=== PATIENT | female | born 1960 | race Caucasian/White ===

== ENCOUNTER 2020-03-04 08:13 | Outpatient (REF) | payer OTHER, SELFPAY ==
--- NOTE | 2020-03-04 08:35 | XR_ITS ---
EXAMINATION: XR FOOT, LEFT CLINICAL INFORMATION: Heel pain. COMPARISON: None TECHNIQUE: AP, lateral, and oblique views of the left foot. FINDINGS: There is no acute fracture or dislocation. The tarsal bones are normally aligned. There is an incidental type II accessory navicular bone. Small plantar and moderate retrocalcaneal spurs are noted. The soft tissues are unremarkable. XR/XR foot LT 2V IMPRESSION: 1. Small plantar and moderate retrocalcaneal degenerative spurs. 2. Type II accessory navicular bone can be incidental, but can also be a source of chronic pain.
--- NOTE | 2020-03-04 08:35 | XR_ITS ---
EXAMINATION: XR FOOT, RIGHT CLINICAL INFORMATION: Right heel pain. COMPARISON: None TECHNIQUE: AP, lateral, and oblique views of the right foot. FINDINGS: There is no acute fracture or dislocation. The tarsal bones are normally aligned. There is an incidental type I accessory navicular bone. Small plantar and moderate retrocalcaneal spurs are noted. Mild soft tissue swelling is seen. XR/XR foot RT 2V IMPRESSION: 1. Small plantar and moderate retrocalcaneal degenerative spurs. 2. Type I accessory navicular bone can be incidental, but can also be a source of chronic pain.
[2020-03-04 08:57] LABS: MANUAL DIFF FLAG NO
[2020-03-04 09:07] LABS: Basophils Absolute Auto 0.1 X10*3/uL (0.0-0.2); Basophils Percent Auto 0.6 % (0-2); Eosinophils Absolute Auto 0.2 X10*3/uL (0.0-0.4); Eosinophils Percent Auto 2.3 % (0-4); Hemoglobin 14.1 g/dl (12.0-16.0); Imm Gran Abs Auto 0.03 X10*3/uL (0.00-0.03); Imm Gran Pct Auto 0.3 % (0.0-0.4); Lymphocytes Absolute Auto 3.1 X10*3/uL (1.2-4.9); Lymphocytes Percent Auto 33.3 % (20-40); Mean Corpuscular HGB Conc 32.8 g/dl (31.0-35.0); Mean Corpuscular Hemoglobin 29.6 pg (27.0-33.0); Mean Corpuscular Volume 90.1 fL (80-98); Mean Platelet Volume 10.3 fL (9.4-12.3); Monocytes Absolute Auto 0.6 X10*3/uL (0.1-1.2); Monocytes Percent Auto 6.8 % (2-11); Neutrophils Absolute Auto 5.3 X10*3/uL (2.0-8.3); Neutrophils Percent Auto 56.7 % (45-73); Platelet Count 276 X10*3/uL (160-400); Red Blood Count 4.77 X10*6/uL (4.20-5.50); Red Cell Distribution Width 12.9 % (11.0-16.0); White Blood Count 9.3 X10*3/uL (4.8-10.8)
[2020-03-04 09:31] LABS: Alanine Aminotransferase 26 U/L (0-31); Albumin Level 4.3 g/dL (3.5-5.0); Alkaline Phosphatase 102 U/L (39-117); Anion Gap 12 (12-20); Aspartate Amino Transferase 15 U/L (5-31); Bilirubin Total 0.9 mg/dL (0.0-1.0); Blood Urea Nitrogen 17 mg/dL (9-16); Calcium 9.2 mg/dL (8.4-10.2); Carbon Dioxide 31 mmol/L (22-29); Chloride 99 mmol/L (96-108); Cholesterol 192 mg/dL; Estimated Glomerular Filt Rate > 60; Glucose Fasting 139 mg/dL (60-99); HDL Cholesterol 38 mg/dL; LDL Cholesterol Calculated 117 mg/dl; Potassium 4.2 mmol/l (3.3-5.1); Sodium 138 mmol/L (135-145); Total Protein 7.1 g/dL (6.5-8.0); Triglycerides 186 mg/dL
== END 2020-03-04 08:14 | disposition home or self-care (01) ==
LOC: HO.LAB 08:13
PROVIDERS: Visit Provider Internal Medicine
DX: Z00.00 Encounter for general adult medical examination without abnormal findings (principal); M79.671 Pain in right foot; M79.672 Pain in left foot
CPT/HCPCS: 36415; 73620; 80053; 80061; 85025

== ENCOUNTER 2021-02-16 08:21 | Outpatient (REF) | payer OTHER, SELFPAY ==
--- NOTE | ~2021-02-16 | MM_ITS ---
EXAMINATION: MM SCREENING DIGITAL BREAST TOMOSYNTHESIS, BILATERAL CLINICAL INFORMATION: Screening. Asymptomatic. The lifetime risk of breast cancer based on the Tyrer-Cuzick Model is 8.0%. COMPARISON: Mammography: 12/30/2019 and studies dating back to 08/30/2009 TECHNIQUE: Digital breast tomosynthesis is performed in both the craniocaudal and mediolateral oblique views along with computer-aided detection (CAD). Synthesized 2D images are generated from the tomosynthesis. FINDINGS: The breasts are almost entirely fatty (ACR BI-RADS breast composition Category a). There is stable parenchymal pattern of the left breast. Within the inferior lateral aspect of the right breast approximately 8 cm from the nipple, there is an ill-defined density not definitely seen previously measuring approximately 7 mm in diameter. No associated spiculation or microcalcification is identified. Spot compression films are recommended. MM/MM tomosynthesis screening BI IMPRESSION: Right breast density inferolateral aspect for which further evaluation with spot compression view is recommended. ASSESSMENT: BI-RADS 0: Incomplete - Need Additional Imaging Evaluation RECOMMENDATION: 1. Additional views of the right breast. 2. Targeted ultrasound if warranted after review of the additional views. 3. Radiology department staff will contact the patient for additional imaging. This patient's information was entered into a reminder system with a target due date for their next mammogram.
== END 2021-02-16 08:22 | disposition home or self-care (01) ==
LOC: HO.MAMMO 08:21
PROVIDERS: Visit Provider Internal Medicine
DX: Z12.31 Encounter for screening mammogram for malignant neoplasm of breast (principal)
CPT/HCPCS: 77063; 77067

== ENCOUNTER 2021-02-22 07:51 | Outpatient (REF) | payer OTHER, SELFPAY ==
--- NOTE | ~2021-02-22 | MM_ITS ---
EXAMINATION: MM DIAGNOSTIC DIGITAL BREAST TOMOSYNTHESIS, RIGHT CLINICAL INFORMATION: Right breast density laterally. COMPARISON: Mammography: February 16, 2021 and studies dating back to February 03, 2014 TECHNIQUE: Digital breast tomosynthesis is performed. 2D images are generated from the tomosynthesis. The following views are obtained: 90 degree mediolateral view, mediolateral oblique spot compression view, and spot compression view and craniocaudal projection FINDINGS: There are scattered areas of fibroglandular density (ACR BI-RADS breast composition Category b). Additional views show no significant mass, architectural abnormality, or abnormal calcifications. Results are provided to the patient at time of visit by the technologist. MM/MM tomosynthesis added views R IMPRESSION: No specific mammographic evidence to suggest malignancy. No persistent right breast density. ASSESSMENT: BI-RADS 1: Negative RECOMMENDATION: Routine annual mammography screening due in 12 months. This patient's information was entered into a reminder system with a target due date for their next mammogram.
== END 2021-02-22 07:52 | disposition home or self-care (01) ==
LOC: HO.MAMMO 07:51
PROVIDERS: Visit Provider Internal Medicine
DX: R92.2 Inconclusive mammogram (principal)
CPT/HCPCS: 77061; 77065

== ENCOUNTER 2021-03-13 09:51 | Outpatient (REF) | payer OTHER, SELFPAY ==
[2021-03-13 10:14] LABS: MANUAL DIFF FLAG NO
[2021-03-13 10:21] LABS: Basophils Percent Auto 0.5 % (0-2); Eosinophils Absolute Auto 0.2 X10*3/uL (0.0-0.4); Eosinophils Percent Auto 2.4 % (0-4); Hematocrit 42.8 % (37.0-47.0); Hemoglobin 13.9 g/dl (12.0-16.0); Imm Gran Abs Auto 0.04 X10*3/uL (0.00-0.03); Imm Gran Pct Auto 0.5 % (0.0-0.4); Lymphocytes Percent Auto 35.8 % (20-40); Mean Corpuscular HGB Conc 32.5 g/dl (31.0-35.0); Mean Corpuscular Hemoglobin 29.6 pg (27.0-33.0); Mean Corpuscular Volume 91.1 fL (80.0-98.0); Mean Platelet Volume 10.4 fL (9.4-12.3); Monocytes Absolute Auto 0.5 X10*3/uL (0.1-1.2); Monocytes Percent Auto 6.3 % (2-11); Neutrophils Absolute Auto 4.6 x10*3/uL (2.0-8.3); Neutrophils Percent Auto 54.5 % (45-73); Platelet Count 294 X10*3/uL (160-400); Red Cell Distribution Width 12.8 % (11.0-16.0); White Blood Count 8.4 X10*3/uL (4.8-10.8)
[2021-03-13 10:28] LABS: Estimated Average Glucose 131 mg/dL; Hemoglobin A1c % 6.2 %
[2021-03-13 11:00] LABS: Alanine Aminotransferase 29 U/L (0-31); Albumin Level 4.3 g/dL (3.5-5.0); Alkaline Phosphatase 105 U/L (39-117); Anion Gap 12 (12-20); Aspartate Amino Transferase 15 U/L (5-31); Bilirubin Total 0.7 mg/dL (0.0-1.0); Blood Urea Nitrogen 12 mg/dL (9-16); Calcium 9.7 mg/dL (8.4-10.2); Carbon Dioxide 29 mmol/L (22-29); Chloride 101 mmol/L (96-108); Cholesterol 208 mg/dL; Estimated Glomerular Filt Rate > 60; Glucose Fasting 111 mg/dL (60-99); HDL Cholesterol 37 mg/dL; LDL Cholesterol Calculated 119 mg/dl; Sodium 138 mmol/L (135-145); Triglycerides 264 mg/dL
== END 2021-03-13 09:52 | disposition home or self-care (01) ==
LOC: HO.10HDL 09:51
PROVIDERS: Visit Provider Internal Medicine
DX: Z00.00 Encounter for general adult medical examination without abnormal findings (principal); R73.03 Prediabetes
CPT/HCPCS: 36415; 80053; 80061; 83036; 85025

== ENCOUNTER 2021-04-04 14:57 | Outpatient (REF) | payer OTHER, SELFPAY ==
--- NOTE | ~2021-04-04 | XR_ITS ---
EXAMINATION: XR HAND, LEFT CLINICAL INFORMATION: Left hand pain COMPARISON: None TECHNIQUE: Four views of the left hand. FINDINGS: Skin marker positioned dorsal to the metacarpals. There is soft tissue swelling on the dorsal aspect of the metacarpals. No radiopaque foreign body seen. No visible acute fracture or dislocation. Mild narrowing of some of the interphalangeal joint spaces. Mild first CMC arthritis. XR/XR hand LT min 3V IMPRESSION: Dorsal soft tissue swelling. No radiographic evidence of acute fracture or dislocation. No radiopaque foreign body is identified.
== END 2021-04-04 14:58 | disposition home or self-care (01) ==
LOC: HO.HOSX 14:57
PROVIDERS: PCP Internal Medicine; Visit Provider Orthopaedic Surgery
DX: M79.642 Pain in left hand (principal); I10 Essential (primary) hypertension; E78.00 Pure hypercholesterolemia, unspecified; L25.0 Unspecified contact dermatitis due to cosmetics; T50.995A Adverse effect of other drugs, medicaments and biological substances, initial encounter
CPT/HCPCS: 73130; 99202

== ENCOUNTER → 2021-07-12 15:08 | Outpatient (BNVA) | payer OTHER, SELFPAY | PROVIDERS: Visit Provider Orthopaedic Surgery | DX: M79.89 Other specified soft tissue disorders (principal) | CPT/HCPCS: 99212 ==

== ENCOUNTER 2021-08-03 06:00 | Day surgery (SDC) | payer OTHER, SELFPAY ==
[2021-08-03 06:19] VITALS: BMI 39.4
[2021-08-03 06:24] VITALS: BP 140/75; PULSE 80; RESP 16; TEMP 36.3; O2SAT 96
--- NOTE | 2021-08-03 06:43 | PC.NURSE ---
Addendum entered by Valeria Simons 08/03/21 08:04: Correction, Patient arrived to [facility] wearing 3 rings (one on right hand, two on left hand). Dr. Martinez at bedside with patient and explained the risks of wearing rings on the operative hand. Myles POLANCO from the ED came to [facility] and cut two rings off of left hand, patient tolerated well. Both rings put in labeled patient bag and put with her other belongings. Original Note: Patient arrived to [facility] wearing 2 rings. Per patient these rings are unable to be removed and per Dr. Martinez, okay to wear during surgery . Patient made aware of the risks of bringing metal into the OR. To proceed with procedure as scheduled. Surgical team made aware of jewelry.
--- NOTE | 2021-08-03 07:14 | HO.ANESPROP2 ---
HPI - Anesthesia Eval Consult details Narrative: 61 F for ?left dorsal hand mass excision HTN , Asthma ,Morbid Obesity . [facility] Active Problems Active Problems: All Active Problems (Updated 04/04/21 @ 16:16 by Dulce Martinez MD) Mass of soft tissue of left upper extremity (Acute) Past Medical History Medical History (Updated 04/04/21 @ 16:16 by Dulce Martinez MD) High blood pressure High cholesterol Functional capacity: independent ambulation Family History Family history of problems with anesthesia: No Surgical History History of Problems with Anesthesia: No Social History Social History (Updated 04/04/21 @ 15:12 by Latia Dawson [facility]) Patient Tobacco Use Status: Former Tobacco user Quit Date: 1989 Tobacco use type: Cigarette Years Smoked: 10 Current occupational status: employed 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 Meds Allergies Allergy/AdvReac Type Severity Reaction Status Date / Time Ivory soap Allergy Mild rash, Uncoded 08/03/21 06:13 itching Active Medications: Current Medications Lactated Ringer's (Lr) 1,000 mls @ 80 mls/hr IVCONT .[id number] [facility] Home Medications Medication Instructions Recorded Confirmed Last Taken Type hydrochlorothiazide 12.5 mg capsule 12.5 mg PO QAM 04/04/21 07/12/21 Unknown History irbesartan 150 mg tablet (Avapro) 150 mg PO DAILY 04/04/21 07/12/21 Unknown History simvastatin 5 mg tablet 5 mg PO DAILY 04/04/21 07/12/21 Unknown History Exam Exam Date and Time: August 03, 2021 0714 Height,Weight and Vital Signs: Height 5 ft 4 in Weight 104.326 kg Last Vital Signs Temp 97.4 F 08/03/21 06:24 Pulse 80 08/03/21 06:24 Resp 16 08/03/21 06:24 BP 140/75 H 08/03/21 06:24 Pulse Ox 96 08/03/21 06:24 Airway Mallampati Class: III TM Dist: >3cm Neck ROM: Full Loose/Missing/Broken Teeth: Yes (Chipped ) Heart: S1, S2 Lungs: b/l breath sounds Assessment and Plan Assessment Anesthesia Assessment: Anesthesia Plan Discussed and Chart Reviewed Final Anesthetic Review Family History of Problems with Anesthesia: No History of Problems with Anesthesia: No NPO: Yes ASA Class: III Final Preanesthetic Review: Meds/Allgs Chart Reviewed, Consent Obtained/Reviewed and Anes Risks/Benef Reviewed Patient Risk: Intermediate Procedure Risk: Intermediate Anesthetic Plan Anesthetic Plan: MAC: Disposition: Standard PACU
[2021-08-03] MEDS: Lactated Ringers 1,000 ML 80 ML IVCONT (07:23)
[2021-08-03 08:45] VITALS: BP 112/73; PULSE 90; RESP 16; TEMP 36.8; O2SAT 98
[2021-08-03] MEDS: Acetaminophen 325 MG TABLET 650 MG PO (08:56)
--- NOTE | 2021-08-03 09:01 | MHC.SHP ---
Pre-Procedural Eval Section A Date of Service: 08/03/21 The patient is an INPATIENT: No Changes since office visit: No Cold of Flu in the past 2 weeks, No New Medical Problems, No Changes in Medication and No Patient answered all questions The History & Physical has been completed within 30 days and I have reviewed it.: Yes Section B Chief Complaint: Left dorsal hand mass Allergies: Allergies Allergy/AdvReac Type Severity Reaction Status Date / Time Ivory soap Allergy Mild rash, Uncoded 08/03/21 06:13 itching Plan I have reviewed the history and physical and performed a pertinent physical examination on my patient. No changes have occurred unless specified.
[2021-08-03 09:02] VITALS: BP 120/66; PULSE 83; RESP 18; TEMP 36.6; O2SAT 96
--- NOTE | 2021-08-03 09:02 | W.PM.OPN ---
Operative Note Operative Note Date of Service: 08/03/21 Narrative: Operative Note Narrative: Preop diagnosis: left dorsal hand mass Postop diagnosis: Same Procedure: left dorsal hand mass excisional biopsy, and excision of associated osteophyte Surgeon: Dulce Martinez MD Anesthesia: mac plus local Findings: a yellow fatty soft tissue mass measuring approximately 1 cm in diameter was removed and sent for pathology. It was associated with a dorsal radial osteophyte off the 2nd metacarpal head. This osteophyte was also removed and included in the specimen. Implants: None Tourniquet time: 11 minutes EBL: 5.0 ml Specimen: left dorsal hand mass and associated osteophyte Drains: None Complications: None Disposition: Brought to the recovery room in stable condition Plan: Follow-up in 10-14 days for wound check, suture removal and to check pathology Indications: The patient is a 61 year old woman with mass over the dorsal radial aspect of the left hand near the 2nd metacarpal head . The risks and benefits of operative treatment, including but not limited to risk of damage to blood vessels, nerves, tendons, infection, recurrence, persistent pain or numbness, incomplete resolution of preoperative symptoms, or need for further surgery were discussed with the patient and they wished to proceed with surgery. Procedure: Once consent was obtained patient was brought back to the operating suite and placed in the operating table in a supine position. . Perioperative antibiotics and anesthesia was administered by the anesthesia team. A tourniquet was applied to the proximal forearm of the left upper extremity and the limb was prepped and draped in a standard surgical fashion. the area about the mass over the dorsal aspect of the 2nd metacarpal head was infiltrated with some 2% lidocaine with epinephrine. The limb was elevated exsanguinated with Esmarch bandage and the tourniquet inflated to 250 mm of mercury for a total tourniquet time of Eleven minutes. I made a 2 cm longitudinal incision centered over the mass which was position over the 2nd metacarpal neck and head. Incision was made through the skin to the subcutaneous tissues using a 15. Blade. I then carefully dissected down to the level of the mass. There is a 1 cm yellow fatty mass that was somewhat hard and distinct from the surrounding subcutaneous fat. This was carefully dissected from the surrounding tissues and removed from the patient to be sent for histopathology. There was an associated osteophyte off of dorsal radial aspect of the 2nd metacarpal head that had been associated with this mass. I used a small rongeur to remove this osteophyte and the osteophyte material was sent with the specimen. No other masses were appreciated. At this point the tourniquet was deflated and hemostasis obtained with a brief period of local pressure and bipolar electrocautery. The wound was copiously irrigated with normal saline. The skin edges were reapproximated with 5-0 nylon suture and a sterile dressing was applied. The patient appears to have tolerated the procedure well and with no complications. All digits were well vascularized conclusion of the case.
== END 2021-08-03 09:38 | disposition home or self-care (01) ==
PROVIDERS: PCP Internal Medicine; Visit Provider Orthopaedic Surgery
PROC: (CPT 11423; principal; 2021-08-03 07:30)
DX: M79.89 Other specified soft tissue disorders (principal); R22.32 Localized swelling, mass and lump, left upper limb; M25.742 Osteophyte, left hand; I10 Essential (primary) hypertension; E78.00 Pure hypercholesterolemia, unspecified; Z79.899 Other long term (current) drug therapy
CPT/HCPCS: 11423; 88304; 88305; 88311; J0690; J2250; J3010

== ENCOUNTER → 2021-08-16 15:11 | Outpatient (BNVA) | payer OTHER, SELFPAY | PROVIDERS: Visit Provider Orthopaedic Surgery | DX: D17.9 Benign lipomatous neoplasm, unspecified (principal); M79.89 Other specified soft tissue disorders | CPT/HCPCS: 99212 ==

== ENCOUNTER 2021-08-21 13:38 | Outpatient (REF) | payer OTHER, SELFPAY ==
[2021-08-21 14:19] LABS: Influenza A PCR NEGATIVE (Negative); Influenza B PCR NEGATIVE (Negative); Resp Syncy Virus RNA Qual PCR NEGATIVE (Negative); SARS COV2 PCR INHOUSE NEGATIVE (Negative)
== END 2021-08-21 13:39 | disposition home or self-care (01) ==
LOC: HO.LNP 13:38
PROVIDERS: Visit Provider Internal Medicine
DX: Z20.822 Contact with and (suspected) exposure to COVID-19 (principal); R05.9 Cough, unspecified
CPT/HCPCS: 0241U

== ENCOUNTER 2021-09-18 08:47 | Outpatient (REF) | payer OTHER, SELFPAY ==
[2021-09-20 12:59] LABS: BV Int Neg Control Negative (Negative); BV Int Pos Control Positive (Positive)
[2021-09-23 02:47] LABS: HPV mRNA E6/E7 rflx Not Detected (Not Detected)
== END 2021-09-18 08:48 | disposition home or self-care (01) ==
LOC: HO.LAB 08:47
PROVIDERS: PCP Internal Medicine; Visit Provider Advanced Practice Midwife
DX: Z01.419 Encounter for gynecological examination (general) (routine) without abnormal findings (principal); L29.2 Pruritus vulvae; L23.2 Allergic contact dermatitis due to cosmetics; R23.8 Other skin changes; Z11.51 Encounter for screening for human papillomavirus (HPV); I10 Essential (primary) hypertension; E78.00 Pure hypercholesterolemia, unspecified; Z87.891 Personal history of nicotine dependence
CPT/HCPCS: 87480; 87510; 87624; 87660; 88142

== ENCOUNTER 2021-10-09 09:27 | Outpatient (REF) | payer OTHER, SELFPAY | END 2021-10-09 09:28 | disposition home or self-care (01) | LOC: HO.LAB 09:27 | PROVIDERS: Visit Provider Advanced Practice Midwife | DX: L29.2 Pruritus vulvae (principal); R21 Rash and other nonspecific skin eruption | CPT/HCPCS: 56605; 88305 ==

== ENCOUNTER → 2021-10-23 10:58 | Outpatient (BNVA) | payer OTHER, SELFPAY | PROVIDERS: PCP Internal Medicine; Visit Provider Advanced Practice Midwife | DX: L28.0 Lichen simplex chronicus (principal) | CPT/HCPCS: 99212 ==

== ENCOUNTER 2022-02-22 08:19 | Outpatient (REF) | payer OTHER, SELFPAY ==
--- NOTE | ~2022-02-22 | MM_ITS ---
EXAMINATION: MM SCREENING DIGITAL BREAST TOMOSYNTHESIS, BILATERAL CLINICAL INFORMATION: Screening. Asymptomatic. COMPARISON: Mammography: February 22, 2021 and studies dating back to April 12, 2016 TECHNIQUE: Digital breast tomosynthesis is performed in both the craniocaudal and mediolateral oblique views along with computer-aided detection (CAD). Synthesized 2D images are generated from the tomosynthesis. FINDINGS: The breasts are almost entirely fatty (ACR BI-RADS breast composition Category a). There are no significant masses, abnormal calcifications, or other abnormalities. MM/MM tomosynthesis screening BI IMPRESSION: No significant changes from prior exam. ASSESSMENT: BI-RADS 1: Negative RECOMMENDATION: Routine annual mammography screening. This patient's information was entered into a reminder system with a target due date for their next mammogram.
== END 2022-02-22 08:20 | disposition home or self-care (01) ==
LOC: HO.MAMMO 08:19
PROVIDERS: Visit Provider Internal Medicine
DX: Z12.31 Encounter for screening mammogram for malignant neoplasm of breast (principal)
CPT/HCPCS: 77063; 77067

== ENCOUNTER 2022-03-19 08:35 | Outpatient (REF) | payer OTHER, SELFPAY ==
[2022-03-19 10:47] LABS: MANUAL DIFF FLAG NO
[2022-03-19 10:52] LABS: Basophils Percent Auto 0.5 % (0-2); Eosinophils Absolute Auto 0.2 X10*3/uL (0.0-0.4); Eosinophils Percent Auto 2.3 % (0-4); Hemoglobin 14.2 g/dl (12.0-16.0); Imm Gran Abs Auto 0.03 X10*3/uL (0.00-0.03); Imm Gran Pct Auto 0.4 % (0.0-0.4); Lymphocytes Percent Auto 35.6 % (20-40); Mean Corpuscular Hemoglobin 29.8 pg (27.0-33.0); Mean Corpuscular Volume 90.3 fL (80.0-98.0); Mean Platelet Volume 10.7 fL (9.4-12.3); Monocytes Absolute Auto 0.5 X10*3/uL (0.1-1.2); Monocytes Percent Auto 6.2 % (2-11); Neutrophils Absolute Auto 4.6 x10*3/uL (2.0-8.3); Platelet Count 289 X10*3/uL (160-400); Red Blood Count 4.76 X10*6/uL (4.20-5.50); Red Cell Distribution Width 12.4 % (11.0-16.0); White Blood Count 8.4 X10*3/uL (4.8-10.8)
[2022-03-19 11:26] LABS: Alanine Aminotransferase 27 U/L (0-31); Albumin Level 4.4 g/dL (3.5-5.0); Alkaline Phosphatase 99 U/L (39-117); Anion Gap 12 (12-20); Aspartate Amino Transferase 17 U/L (5-31); Bilirubin Total 1.2 mg/dL (0.0-1.0); Blood Urea Nitrogen 17 mg/dL (9-16); Calcium 9.5 mg/dL (8.4-10.2); Carbon Dioxide 31 mmol/L (22-29); Chloride 101 mmol/L (96-108); Cholesterol 182 mg/dL; Estimated Average Glucose 134 mg/dL; Estimated Glomerular Filt Rate > 60; Glucose Fasting 126 mg/dL (60-99); HDL Cholesterol 39 mg/dL; Hemoglobin A1c % 6.3 %; LDL Cholesterol Calculated 109 mg/dl; Potassium 3.8 mmol/L (3.3-5.1); Sodium 140 mmol/L (135-145); Triglycerides 173 mg/dL
[2022-03-19 12:09] LABS: Creatinine Urine 79.74 mg/dL; Microalbum/Creatinine Ratio Ur 7.5 ug/mg cr
== END 2022-03-19 08:36 | disposition home or self-care (01) ==
LOC: HO.10HDL 08:35
PROVIDERS: Visit Provider Internal Medicine
DX: Z00.00 Encounter for general adult medical examination without abnormal findings (principal); R73.03 Prediabetes
CPT/HCPCS: 36415; 80053; 80061; 82043; 83036; 85025

== ENCOUNTER 2022-06-25 12:20 | Outpatient (REF) | payer OTHER, SELFPAY ==
[2022-06-25 13:41] LABS: MANUAL DIFF FLAG NO
[2022-06-25 14:01] LABS: Basophils Percent Auto 0.5 % (0-2); Eosinophils Absolute Auto 0.2 X10*3/uL (0.0-0.4); Eosinophils Percent Auto 2.4 % (0-4); Hematocrit 41.5 % (37.0-47.0); Hemoglobin 13.8 g/dl (12.0-16.0); Imm Gran Abs Auto 0.04 X10*3/uL (0.00-0.03); Imm Gran Pct Auto 0.5 % (0.0-0.4); Lymphocytes Percent Auto 35.7 % (20-40); Mean Corpuscular HGB Conc 33.3 g/dl (31.0-35.0); Mean Corpuscular Hemoglobin 30.1 pg (27.0-33.0); Mean Corpuscular Volume 90.4 fL (80.0-98.0); Mean Platelet Volume 10.7 fL (9.4-12.3); Monocytes Absolute Auto 0.6 X10*3/uL (0.1-1.2); Monocytes Percent Auto 7.5 % (2-11); Neutrophils Absolute Auto 4.5 x10*3/uL (2.0-8.3); Neutrophils Percent Auto 53.4 % (45-73); Platelet Count 286 X10*3/uL (160-400); Red Blood Count 4.59 X10*6/uL (4.20-5.50); Red Cell Distribution Width 12.8 % (11.0-16.0); White Blood Count 8.5 X10*3/uL (4.8-10.8)
[2022-06-25 14:13] LABS: Amylase 38 U/L (28-100); Anion Gap 11 (12-20); Blood Urea Nitrogen 13 mg/dL (9-16); C Reactive Protein 0.76 mg/dL (< or = 0.50); Calcium 9.5 mg/dL (8.4-10.2); Carbon Dioxide 32 mmol/L (22-29); Chloride 99 mmol/L (96-108); Estimated Glomerular Filt Rate > 60; Glucose Random 103 mg/dL (60-115); Potassium 4.4 mmol/L (3.3-5.1); Sodium 138 mmol/L (135-145)
[2022-06-25 14:18] LABS: Estimated Average Glucose 140 mg/dL; Hemoglobin A1c % 6.5 %
== END 2022-06-25 12:21 | disposition home or self-care (01) ==
LOC: HO.10HDL 12:20
PROVIDERS: Visit Provider Internal Medicine
DX: R73.03 Prediabetes (principal)
CPT/HCPCS: 36415; 80048; 82150; 83036; 85025; 86140

== ENCOUNTER 2022-09-20 08:50 | Outpatient (REF) | payer OTHER, SELFPAY ==
[2022-09-25 22:08] LABS: HPV mRNA E6/E7 rflx Not Detected (Not Detected)
== END 2022-09-20 08:51 | disposition home or self-care (01) ==
LOC: HO.LNP 08:50
PROVIDERS: PCP Internal Medicine; Visit Provider Advanced Practice Midwife
DX: Z01.419 Encounter for gynecological examination (general) (routine) without abnormal findings (principal); Z11.51 Encounter for screening for human papillomavirus (HPV); N93.0 Postcoital and contact bleeding
CPT/HCPCS: 87624; 88142

== ENCOUNTER 2022-09-20 09:41 | Outpatient (REF) | payer OTHER, SELFPAY ==
[2022-09-21 11:11] LABS: BV Int Neg Control Negative (Negative); BV Int Pos Control Positive (Positive)
== END 2022-09-20 09:42 | disposition home or self-care (01) ==
LOC: HO.LAB 09:41
PROVIDERS: Visit Provider Advanced Practice Midwife
DX: N93.0 Postcoital and contact bleeding (principal)
CPT/HCPCS: 87480; 87510; 87660

== ENCOUNTER 2022-10-02 11:07 | Outpatient (REF) | payer OTHER, SELFPAY ==
--- NOTE | ~2022-10-02 | US_ITS ---
EXAMINATION: US PELVIS COMPLETE CLINICAL INFORMATION: Postcoital bleeding COMPARISON: Pelvic ultrasound 12/23/2008 TECHNIQUE: Transabdominal and transvaginal imaging was performed. FINDINGS: The uterus is of normal size and echogenicity measuring 8.6 x 3.5 x 5.0 cm. A regular homogeneous endometrium is identified measuring 0.4 cm. A 1 cm complex nabothian cyst in the cervix containing debris. Both ovaries are of normal size and echogenicity. The right measures 2.0 x 1.4 x 1.7 cm for a volume of 2.5 mL. The left measures 2.0 x 1.9 x 2.2 cm for a volume of 4.8 mL. There is a unilocular 2.4 x 3.4 x 2.7 cm left paraovarian simple cyst. There is no pelvic free fluid. US/US pelvic and transvaginal IMPRESSION: * A 3.4 cm unilocular left paraovarian simple cyst. Recommend annual follow-up pelvic ultrasound. * Endometrium is uniform measuring 4 mm.
== END 2022-10-02 11:08 | disposition home or self-care (01) ==
LOC: HO.US 11:07
PROVIDERS: PCP Internal Medicine; Visit Provider Advanced Practice Midwife
DX: N93.0 Postcoital and contact bleeding (principal)
CPT/HCPCS: 76830; 76856

== ENCOUNTER → 2022-10-24 10:28 | Outpatient (BNVA) | payer OTHER, SELFPAY | PROVIDERS: PCP Internal Medicine; Visit Provider Advanced Practice Midwife ==

== ENCOUNTER 2023-02-28 08:23 | Outpatient (REF) | payer OTHER, SELFPAY ==
--- NOTE | ~2023-02-28 | MM_ITS ---
EXAMINATION: MM SCREENING DIGITAL BREAST TOMOSYNTHESIS, BILATERAL CLINICAL INFORMATION: Screening. Asymptomatic. COMPARISON: Mammography: 02/22/2022, 02/22/2021, 02/16/2021, 08/15/2018, and dating back to 2012. TECHNIQUE: Digital breast tomosynthesis is performed in both the craniocaudal and mediolateral oblique views along with computer-aided detection (CAD). Synthesized 2D images are generated from the tomosynthesis. FINDINGS: The breasts are almost entirely fatty (ACR BI-RADS breast composition Category a). There are no suspicious masses, suspicious grouped calcifications, or areas of architectural distortion in either breast. The parenchymal pattern is stable from prior exams. MM/MM tomosynthesis screening BI IMPRESSION: No mammographic evidence of malignancy. ASSESSMENT: BI-RADS BI-RADS 1 - Negative RECOMMENDATION: Routine annual mammography screening. 1 year F/U This examination should not preclude the clinical evaluation of a suspicious palpable abnormality. This patient's information was entered into a reminder system with a target due date for their next mammogram.
== END 2023-02-28 08:24 | disposition home or self-care (01) ==
LOC: HO.MAMMO 08:23
PROVIDERS: PCP Internal Medicine; Visit Provider Internal Medicine
DX: Z12.31 Encounter for screening mammogram for malignant neoplasm of breast (principal)
CPT/HCPCS: 77063; 77067

== ENCOUNTER → 2023-02-28 08:30 | Outpatient (BNV) | payer OTHER, SELFPAY | PROVIDERS: PCP Internal Medicine; Visit Provider Radiology Diagnostic Radiology | DX: Z12.31 Encounter for screening mammogram for malignant neoplasm of breast (principal) | CPT/HCPCS: 77063; 77067 ==

== ENCOUNTER 2023-03-20 09:42 | Outpatient (REF) | payer OTHER, SELFPAY ==
[2023-03-20 10:20] LABS: MANUAL DIFF FLAG NO
[2023-03-20 10:48] LABS: Basophils Percent Auto 0.4 % (0-2); Eosinophils Absolute Auto 0.2 X10*3/uL (0.0-0.4); Eosinophils Percent Auto 2.4 % (0-4); Imm Gran Abs Auto 0.03 X10*3/uL (0.00-0.03); Imm Gran Pct Auto 0.3 % (0.0-0.4); Lymphocytes Absolute Auto 2.7 X10*3/uL (1.2-4.9); Lymphocytes Percent Auto 28.9 % (20-40); Mean Corpuscular HGB Conc 32.6 g/dl (31.0-35.0); Mean Corpuscular Hemoglobin 29.2 pg (27.0-33.0); Mean Corpuscular Volume 89.8 fL (80.0-98.0); Mean Platelet Volume 10.4 fL (9.4-12.3); Monocytes Absolute Auto 0.7 X10*3/uL (0.1-1.2); Monocytes Percent Auto 7.1 % (2-11); Neutrophils Absolute Auto 5.6 x10*3/uL (2.0-8.3); Neutrophils Percent Auto 60.9 % (45-73); Platelet Count 316 X10*3/uL (160-400); Red Blood Count 4.79 X10*6/uL (4.20-5.50); Red Cell Distribution Width 12.5 % (11.0-16.0); White Blood Count 9.2 X10*3/uL (4.8-10.8)
[2023-03-20 10:49] LABS: Estimated Average Glucose 140 mg/dL; Hemoglobin A1c % 6.5 % (<6.0)
[2023-03-20 11:17] LABS: Creatinine Urine 37.03 mg/dL; Microalbumin Urine < 5.0 mg/L
[2023-03-20 11:35] LABS: Alanine Aminotransferase 28 U/L (0-31); Albumin Level 4.3 g/dL (3.5-5.0); Alkaline Phosphatase 93 U/L (39-117); Anion Gap 14 (12-20); Aspartate Amino Transferase 18 U/L (5-31); Blood Urea Nitrogen 15 mg/dL (9-16); Calcium 9.7 mg/dL (8.4-10.2); Carbon Dioxide 30 mmol/L (22-29); Chloride 100 mmol/L (96-108); Cholesterol 183 mg/dL (<200); Estimated Glomerular Filt Rate > 60; Glucose Fasting 122 mg/dL (60-99); HDL Cholesterol 39 mg/dL (>40); LDL Cholesterol Calculated 107 mg/dL (<100); Sodium 140 mmol/L (135-145); Total Protein 7.4 g/dL (6.5-8.0); Triglycerides 188 mg/dL (<150)
[2023-03-20 11:37] LABS: Thyroid Stimulating Hormone 0.41 uIU/mL (0.32-4.0)
== END 2023-03-20 09:43 | disposition home or self-care (01) ==
LOC: HO.10HDL 09:42
PROVIDERS: Visit Provider Internal Medicine
DX: I10 Essential (primary) hypertension (principal); E11.9 Type 2 diabetes mellitus without complications; E78.00 Pure hypercholesterolemia, unspecified
CPT/HCPCS: 36415; 80053; 80061; 82043; 82570; 83036; 84443; 85025

== ENCOUNTER 2023-06-20 17:15 | Outpatient (REF) | payer OTHER, SELFPAY ==
[2023-06-20 17:24] LABS: MANUAL DIFF FLAG NO
[2023-06-20 17:39] LABS: Basophils Absolute Auto 0.1 X10*3/uL (0.0-0.2); Basophils Percent Auto 0.3 % (0-2); Eosinophils Absolute Auto 0.2 X10*3/uL (0.0-0.4); Eosinophils Percent Auto 1.3 % (0-4); Hemoglobin 15.4 g/dl (12.0-16.0); Imm Gran Abs Auto 0.08 X10*3/uL (0.00-0.03); Imm Gran Pct Auto 0.5 % (0.0-0.4); Lymphocytes Absolute Auto 4.4 X10*3/uL (1.2-4.9); Mean Corpuscular HGB Conc 32.8 g/dl (31.0-35.0); Mean Corpuscular Hemoglobin 28.9 pg (27.0-33.0); Mean Corpuscular Volume 88.3 fL (80.0-98.0); Mean Platelet Volume 9.6 fL (9.4-12.3); Monocytes Percent Auto 6.5 % (2-11); Neutrophils Absolute Auto 9.9 x10*3/uL (2.0-8.3); Neutrophils Percent Auto 63.4 % (45-73); Platelet Count 371 X10*3/uL (160-400); Red Blood Count 5.32 X10*6/uL (4.20-5.50); White Blood Count 15.6 X10*3/uL (4.8-10.8)
[2023-06-20 17:58] LABS: Alanine Aminotransferase 38 U/L (0-31); Albumin Level 4.7 g/dL (3.5-5.0); Alkaline Phosphatase 100 U/L (39-117); Anion Gap 13 (12-20); Aspartate Amino Transferase 22 U/L (5-31); Bilirubin Total 0.8 mg/dL (0.0-1.0); Blood Urea Nitrogen 13 mg/dL (9-16); C Reactive Protein 0.82 mg/dL (< or = 0.50); Carbon Dioxide 29 mmol/L (22-29); Chloride 96 mmol/L (96-108); Estimated Glomerular Filt Rate > 60; Glucose Random 104 mg/dL (60-115); Lipase 26 U/L (8-78); Potassium 3.7 mmol/L (3.3-5.1); Sodium 134 mmol/L (135-145)
== END 2023-06-20 17:16 | disposition home or self-care (01) ==
LOC: HO.LAB 17:15
PROVIDERS: PCP Internal Medicine; Visit Provider Internal Medicine
DX: R10.9 Unspecified abdominal pain (principal)
CPT/HCPCS: 36415; 80053; 83690; 85025; 86140

== ENCOUNTER 2023-06-21 09:48 | Outpatient (REF) | payer OTHER, SELFPAY ==
--- NOTE | ~2023-06-21 | US_ITS ---
EXAMINATION: US ABDOMEN COMPLETE CLINICAL INFORMATION: Abdominal pain.. COMPARISON: None available. TECHNIQUE: Real-time imaging of the abdominal viscera. FINDINGS: PANCREAS: Appears prominent an echogenic. No focal lesion seen. ABDOMINAL AORTA: The proximal, mid, and distal segments are normal in caliber. INFERIOR VENA CAVA: Visualized portions are normal. LIVER: The liver is enlarged in size measuring 17.2 cm.. The liver contour is normal. Parenchymal echogenicity is increased with area of focal fatty sparing in the right lobe. No focal hepatic lesion. There is no intrahepatic biliary duct dilatation seen. GALLBLADDER: Gallbladder wall thickness is 0.3 cm The gallbladder is physiologically distended without evidence of stones, sludge, polyps, wall thickening or pericholecystic fluid. COMMON BILE DUCT: Normal in caliber measuring 0.3 cm in diameter. RIGHT KIDNEY: Normal. No hydronephrosis. No renal calculi or focal parenchymal lesions. The kidney measures 11.1 cm in maximum dimension. LEFT KIDNEY: Normal. No hydronephrosis. No renal calculi or focal parenchymal lesions. The kidney measures 12.0 cm in maximum dimension. SPLEEN: Normal. The spleen measures 9.0 cm in maximum dimension. FREE FLUID: None. US/US abdomen complete IMPRESSION: 1. Diffuse hepatic steatosis with areas of focal fatty sparing in the right lobe. 2. The pancreas is prominent and echogenic. 3. Rest of the abdominal ultrasound is unremarkable.
== END 2023-06-21 09:49 | disposition home or self-care (01) ==
LOC: HO.US 09:48
PROVIDERS: PCP Internal Medicine; Visit Provider Internal Medicine
DX: R10.9 Unspecified abdominal pain (principal)
CPT/HCPCS: 76700

== ENCOUNTER 2023-06-24 12:43 | Outpatient (REF) | payer OTHER, SELFPAY ==
--- NOTE | ~2023-06-24 | CT_ITS ---
EXAMINATION: CT ABDOMEN AND PELVIS WITHOUT CONTRAST CLINICAL INFORMATION: Abdominal pain radiating to chest. COMPARISON: Abdominal ultrasound 06/21/2023 TECHNIQUE: Multidetector volumetric imaging was performed from the superior aspect of the liver through the pubic symphysis. Sagittal and coronal reformatted images were obtained on the technologist's workstation. Oral contrast was administered. This CT examination was performed using dose optimization techniques as appropriate, variously including the following: *Automated exposure control *Adjustment of mA and/or kV according to patient size (this includes techniques or standardized protocols for targeted exams where dose is matched to indication/reason for exam; i.e. extremities or head) *Use of iterative reconstruction technique DLP: 792 mGy-cm FINDINGS: LUNG BASES: The visualized lung bases are unremarkable. LIVER, GALLBLADDER, AND BILIARY TREE: The noncontrast liver is decreased in attenuation. No biliary ductal dilatation is present. The gallbladder is unremarkable with no evidence of radiopaque gallstones, gallbladder wall thickening, or obvious pericholecystic inflammatory changes. PANCREAS: Unremarkable. SPLEEN: Unremarkable. ADRENAL GLANDS: Unremarkable. KIDNEYS AND URETERS: The kidneys are symmetric in size. No hydronephrosis. No perinephric fluid collection. BLADDER: Unremarkable. GASTROINTESTINAL TRACT: Small and large bowel loops are of normal caliber. No small bowel obstruction. Appendix is within normal limits. ABDOMINAL WALL: No significant hernia is appreciated. LYMPH NODES: Mesenteric nodule measures 1.8 x 1.3 x 1.8 cm. VASCULAR: Normal caliber abdominal aorta. PELVIC VISCERA: 3.0 x 2.9 cm left adnexal hypodensity. OSSEOUS STRUCTURES: No destructive bone lesions. CT/CT abdomen pelvis wo IV con IMPRESSION: Hepatic steatosis. Mesenteric nodule measures 1.8 x 1.3 x 1.8 cm. Short interval follow-up imaging is advised to assess stability. 3.0 x 2.9 cm left adnexal hypodensity. This may be further characterized with pelvic ultrasound.
[2023-06-24] MEDS: Barium Sulfate Oral (Vanilla) 450 ML ORAL.SUSP 900 ML PO (14:55)
== END 2023-06-24 12:44 | disposition home or self-care (01) ==
LOC: HO.CT 12:43
PROVIDERS: PCP Internal Medicine; Visit Provider Internal Medicine
DX: R10.13 Epigastric pain (principal); R07.89 Other chest pain
CPT/HCPCS: 74176

== ENCOUNTER 2023-06-28 12:16 | Outpatient (REF) | payer OTHER, SELFPAY ==
--- NOTE | ~2023-06-28 | US_ITS ---
EXAMINATION: US PELVIS CLINICAL INFORMATION: Adnexal lesion. COMPARISON: CT abdomen pelvis 06/24/2023. Pelvic ultrasound 10/02/2022. TECHNIQUE: Ultrasound of the pelvis is performed using both transabdominal and transvaginal transducers along with Doppler. Transvaginal imaging is performed due to inadequate visualization transabdominally. FINDINGS: Uterus: The uterus is anteverted and measures 11.3 x 4.4 x 6.5 cm. There is a 2.3 cm anterior fundal fibroid. The double wall endometrial thickness is 2 mm. Adnexa: The right ovary measures 2.0 x 1.7 x 2.4 cm, volume 4 mL. The right ovary appears normal. The left ovary measures 2.3 x 1.6 x 2.0 cm, volume 4 mL. There is a 3.3 x 3.0 x 3.0 cm (average linear dimension 3.1 cm) adnexal cyst with no abnormal septations, mural nodularity, or internal vascularity. Previously this measured 2.4 x 3.4 x 2.7 cm (average linear diameter 2.8 cm) on pelvic ultrasound 10/02/2022. No pelvic free fluid. US/US pelvic and transvaginal IMPRESSION: Stable to slightly increased size of the simple appearing cyst in the left adnexum. This is consistent with a nonneoplastic cyst or benign cystic neoplasm. Gynecology consult recommended. If not resected, imaging follow-up with US or MR with IV contrast is advised for 2 years from initial study to confirm stability. Note: This recommendation does not apply to premenarchal patients and to those with increased risk (genetic, family history, elevated tumor markers or other high-risk factors) of ovarian cancer. Reference: Radiology. 2019 Nov; 293(2):359-371
== END 2023-06-28 12:17 | disposition home or self-care (01) ==
LOC: HO.US 12:16
PROVIDERS: PCP Internal Medicine; Visit Provider Internal Medicine
DX: R93.89 Abnormal findings on diagnostic imaging of other specified body structures (principal); N83.8 Other noninflammatory disorders of ovary, fallopian tube and broad ligament
CPT/HCPCS: 76830; 76856

== ENCOUNTER 2023-07-09 10:38 | Outpatient (AMB) | payer OTHER, SELFPAY ==
[2023-07-09 10:49] VITALS: BP 118/80; BMI 42.6
--- NOTE | 2023-07-09 10:49 | A.OFFVIS_ITS ---
Intake Vital Signs 07/09/23 10:49 Height 5 ft 4 in Weight 248 lb BMI 42.6 BP 118/80 Intake Visit Reasons: US follow up Allergies Ivory soap Allergy (Mild, Uncoded 07/09/23 10:49) rash, itching HPI HPI Comments History of Present Illness Details Patient is here for a follow up ultrasound ordered by her primary care due to acute abdominal pain which started in April in the epigastric region while on a cruise and another episode since that timeframe. History of colon cancer with her mom. She had a prior ultrasound last September that revealed a left ovarian cyst appeared simple. History of lichen sclerosus, uses the topical ointment once in awhile which helps with any external irritation. Last year she had some postcoital bleeding no episodes since November 2022. She has an appointment with GI tomorrow to evaluate her upper GI pain. REPLACED BY [facility] Medical History (Updated 07/09/23 @ 11:50 by Sarah Frazier CNM) Lichen sclerosus Asthma High blood pressure High cholesterol Surgical History H/O umbilical hernia repair H/O hand surgery Hx of tonsillectomy Family History Mother Colon cancer Maternal Aunt Colon cancer Family/Other History of breast cancer Social History Alcohol intake: current Alcohol intake frequency: a few times a month Comment: medicated with po tylenol Patient Tobacco Use Status: Former Tobacco user Quit Date: 1989 Tobacco use type: Cigarette Years Smoked: 10 Current occupational status: employed 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 Sexual orientation: Straight/Heterosexual Gender identity: Female Review of Systems Const All systems reviewed & are unremarkable except as noted in HPI and below Physical Exam Vital Signs: Last Vital Signs BP 118/80 07/09/23 10:49 BMI result Body Mass Index 42.6 Const General: cooperative, healthy appearing and no acute distress Orientation/consciousness: patient oriented x3 GI Inspection: Yes normal to inspection and Yes obesity Palpation (GI): Soft to palpation and Other GI palpation findings present (Nontender) Rectal Exam - Female: visual inspection normal General: Yes bladder normal to palpation External Female Exam: normal appearance of the urethra Speculum Exam - Vagina: normal appearance of the vagina, normal palpation, normal vaginal discharge and vagina atrophic Speculum Exam - Cervix: normal appearance of the cervix and normal palpation Bimanual exam- vagina & uterus: normal bimanual exam, normal palpation, uterine size normal, bladder normal to palpation, normal palpation, uterine shape normal and non-tender Bimanual Exam- Adnexa, other: normal adnexae Neuro General: patient oriented x3 Results Reviewed Results Reviewed: [address] [address] Ultrasound Report Signed Patient: Ayesha Means MR#: [id number] : 1960 Acct:[id number] Age/Sex: 62 / F ADM Date: 06/28/23 Loc: .US Attending Dr: Reid Husain MD Ordering Physician: Reid Husain MD Date of Service: 06/28/23 Procedure(s): US pelvic and transvaginal Accession Number(s): [id number] cc: Reid Husain MD~ EXAMINATION: US PELVIS CLINICAL INFORMATION: Adnexal lesion. COMPARISON: CT abdomen pelvis 06/24/2023. Pelvic ultrasound 10/02/2022. TECHNIQUE: Ultrasound of the pelvis is performed using both transabdominal and transvaginal transducers along with Doppler. Transvaginal imaging is performed due to inadequate visualization transabdominally. FINDINGS: Uterus: The uterus is anteverted and measures 11.3 x 4.4 x 6.5 cm. There is a 2.3 cm anterior fundal fibroid. The double wall endometrial thickness is 2 mm. Adnexa: The right ovary measures 2.0 x 1.7 x 2.4 cm, volume 4 mL. The right ovary appears normal. The left ovary measures 2.3 x 1.6 x 2.0 cm, volume 4 mL. There is a 3.3 x 3.0 x 3.0 cm (average linear dimension 3.1 cm) adnexal cyst with no abnormal septations, mural nodularity, or internal vascularity. Previously this measured 2.4 x 3.4 x 2.7 cm (average linear diameter 2.8 cm) on pelvic ultrasound 10/02/2022. No pelvic free fluid. US/US pelvic and transvaginal IMPRESSION: Stable to slightly increased size of the simple appearing cyst in the left adnexum. This is consistent with a nonneoplastic cyst or benign cystic neoplasm. Gynecology consult recommended. If not resected, imaging follow-up with US or MR with IV contrast is advised for 2 years from initial study to confirm stability. Note: This recommendation does not apply to premenarchal patients and to those with increased risk (genetic, family history, elevated tumor markers or other high-risk factors) of ovarian cancer. Reference: Radiology. 2019 Feb; 293(2):359-371 Dictated By: Darius Peck MD Signed By: <Electronically signed by Darius Peck MD in OV> 07/01/23 1030 DD/ 1252 TD/TT: Applied Psychology Professor: ANTHONY Assessment & Plan Assessment & Plan (1) Left ovarian cyst: Code(s): N83.202 - Unspecified ovarian cyst, left side (2) Lichen sclerosus: Code(s): L90.0 - Lichen sclerosus et atrophicus (3) Encounter to discuss test results: Code(s): Z71.2 - Person consulting for explanation of examination or test findings Plan Discussed: Ultrasound findings-benign ovarian cyst with slight increase in size, some cysts can change and become concerning for pre malignancy or malignancy, plan for a follow up on the left ovarian cyst. She agrees to book the follow up in September for her ovarian cyst monitoring. Advised to monitor any symptoms of left-sided pelvic pain and to notify the office for immediate evaluation if any occurs. Atrophic vaginal changes noted and discuss the use of Replens as needed for vaginal moisturizing. Report any vaginal bleeding. Lichen sclerosus, in the need to continue treatment, refills for medications to be prescribed at her annual in September. Her skin today is clear as she is managing her care well. Keep follow up with Dr. Gonzalez tomorrow. This note is constructed using voice recognition software. While every effort has been made to ensure accuracy, erosion control specialist errors may have been included. Coding Level of Care Code Est Pt Level 3 (80830) Diagnoses Left ovarian cyst N83.202 Lichen sclerosus L90.0 Encounter to discuss test results Z71.2
== END 2023-07-09 11:32 | disposition home or self-care (01) ==
LOC: HO.HWS 10:38
PROVIDERS: PCP Internal Medicine; Visit Provider Advanced Practice Midwife
DX: N83.202 Unspecified ovarian cyst, left side (principal); L90.0 Lichen sclerosus et atrophicus; Z71.2 Person consulting for explanation of examination or test findings
CPT/HCPCS: 99213

== ENCOUNTER → 2023-07-09 10:38 | Outpatient (BNVA) | payer OTHER, SELFPAY | PROVIDERS: PCP Internal Medicine; Visit Provider Advanced Practice Midwife | DX: N83.202 Unspecified ovarian cyst, left side (principal); L90.0 Lichen sclerosus et atrophicus; R10.9 Unspecified abdominal pain; Z71.2 Person consulting for explanation of examination or test findings | CPT/HCPCS: 99212 ==

== ENCOUNTER 2023-09-25 09:53 | Outpatient (AMB) | payer OTHER, SELFPAY ==
[2023-09-25 09:57] VITALS: BP 130/80; BMI 42.9
--- NOTE | 2023-09-25 09:57 | A.OFFVIS_ITS ---
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 She is doing well with no concerns: has gained weight, dealing w/left sided sciatica now, going to acupuncture fro treatments and has improved on the right side. History of left ovarian cyst followed from last September, she had a CT scan in the winter due to upper GI pain and a subsequent repeat ultrasound June 2023 that showed a slight increase in the overall dimensions. She does not have any left- sided pelvic pain or other water purification chemist concerns. Attempting to eat a healthy, taking a daily vitamin, and magnesium supplements. Currently not sexually active w/. Denies any vaginal dryness or irritation. History of left-sided ovarian cyst appears benign monitored since last September, has no pain on her left side. Last pap smear; 2022. Last mammogram; 2022. Colonoscopy is UTD. Denies any family history of breast, ovarian or colon cancer. 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 Sexual orientation: Straight/Heterosexual Gender identity: Female Female Reproductive History Menstrual Age of Menarche: 13 control method: none Total pregnancies: 3 Full term: 3 Number of Living Children: 3 Date of last pap smear: 09/24/22 (negative) History of abnormal pap smear: No Date of Mammogram: 02/28/23 Review of Systems Const All systems reviewed & are unremarkable except as noted in HPI and below Reports as per HPI Eyes Reports no additional complaints ENT Reports no additional complaints Card Reports no additional complaints Resp Reports no additional complaints GI Reports as per HPI and Reports no additional complaints Reports as per HPI Musc Reports no additional complaints Skin/Breast Reports as per HPI Neuro Reports no additional complaints Psych Reports no additional complaints Endo Reports no additional complaints Rey/Lymph Reports no additional complaints Aller/Immun Reports no additional complaints Physical Exam Vital Signs: Last Vital Signs BP 130/80 09/25/23 09:57 BMI result Body Mass Index 42.9 Const General: cooperative, healthy appearing, no acute distress, well developed and alert Orientation/consciousness: patient oriented x3 HEENT Head: Yes normal to inspection Eyes General: appearance normal, both eyes and all related structures Neck Neck: Yes normal visual inspection Thyroid: Thyroid normal Chest Chest palpation & inspection: normal inspection of the chest and other (no puckering, dimpling, peau de orange, retraction, discharge, masses) Breast/axilla inspection: normal inspection of the breasts Breast/axilla palpation: normal palpation of the breasts Resp Effort & Inspection: normal respiratory effort GI Inspection: Yes normal to inspection and Yes obesity Palpation (GI): Soft to palpation Rectal Exam - Female: deferred General: Yes bladder normal to palpation External Female Exam: normal external appearance and normal appearance of the urethra Speculum Exam - Vagina: normal appearance of the vagina, normal palpation and normal vaginal discharge Speculum Exam - Cervix: normal appearance of the cervix and normal palpation Bimanual exam- vagina & uterus: normal bimanual exam, normal palpation, uterine size normal, bladder normal to palpation, normal palpation and non-tender Bimanual Exam- Adnexa, other: no masses Skin General skin exam: no rashes or lesions noted Rashes: no rashes Neuro General: patient oriented x3 Cognition (Neuro): normal cognition Extrem General: Yes normal to inspection Psych Attitude: cooperative Thought process: Normal thought process present Assessment & Plan Assessment & Plan (1) Encounter for well woman exam with routine gynecological exam: Code(s): Z01.419 - Encounter for gynecological examination (general) (routine) without ab normal findings Category: Medical (2) Lichen sclerosus: Code(s): L90.0 - Lichen sclerosus et atrophicus Category: Medical (3) Ovarian cyst: Code(s): N83.209 - Unspecified ovarian cyst, unspecified side Qualifiers: Laterality: left Qualified Code(s): N83.202 - Unspecified ovarian cyst, left side Plan Discussed: Current recommendations for pap smears per ASCCP guidelines. Breast awareness, periodic self breast exams and yearly mammogram. Maintain a healthy lifestyle, well balanced diet including Calcium 1,200 mg and Vitamin D 600 IU daily, and routine exercise. Reviewed findings of ovarian cyst. Counseled regarding findings of: Postmenopausal ovarian cyst, which is often benign, and most resolve on their own overtime, her cyst has slightly increased in size. Some develop into premalignant or malignant tumors. Further monitoring and evaluation is recommended with US, possible CT, or MRI study-she is adamant that she would not do an MRI and would rather have surgery to remove her ovary before ever considering an MRI scan, she does not believe she would ever be able to tolerate the procedure. She recently was accompanying her for his MRI and does not want to go through what she witnessed with him. Plan follow up ultrasound and discuss in-person the plan of care. If persists, or is indicated (Ca-125, Carbohydrate Antigen 19-9, & Carcinoembryonic Antigen) labs will be ordered and referral to [facility] or general gynecology for MD care if indicated for possible surgical consult. Follow up in person for test results. Use of medicine for lichen sclerosus symptoms reviewed refills placed, if any increase in symptoms to reports the office sooner for evaluation. Referral for BRCA testing placed. All of her questions and concerns were addressed to the best of my ability and shared decision making. She is agreeable to the plan of care. Contact the office with any postmenopausal bleeding. Patient verbalizes understanding and agrees to the plan of care. She was given opportunity to ask questions and all questions were answered to the best of my ability. RTO in 1 year for annual water purification chemist exam. This note is constructed using voice recognition software. While every effort has been made to ensure accuracy, business law professor errors may have been included. Orders: Orders US pelvic and transvaginal Today N83.209 - Unspecified ovarian cyst, unspecified side Referrals Genetics Referral N83.209 - Unspecified ovarian cyst, unspecified side, Z80.0 - Family history of malignant neoplasm of digestive organs, Z80.3 - Family history of malignant neoplasm of breast Medications: New betamethasone dipropionate 0.05% apply 2-3x week 1 appl topical BID 30 days 45 grams 1RF Coding Level of Care Code Est Pt Prev Care 40-64y(33303) Diagnoses Encounter for well woman exam with routine gynecological exam Z01.419 Lichen sclerosus L90.0 Cyst of left ovary N83.202 Laterality: left Comment
== END 2023-09-25 16:14 | disposition home or self-care (01) ==
PROVIDERS: PCP Internal Medicine; Visit Provider Advanced Practice Midwife
DX: Z01.419 Encounter for gynecological examination (general) (routine) without abnormal findings (principal); L90.0 Lichen sclerosus et atrophicus; N83.202 Unspecified ovarian cyst, left side
CPT/HCPCS: 99396

== ENCOUNTER → 2023-09-25 09:53 | Outpatient (BNVA) | payer OTHER, SELFPAY | PROVIDERS: PCP Internal Medicine; Visit Provider Advanced Practice Midwife | DX: Z01.419 Encounter for gynecological examination (general) (routine) without abnormal findings (principal); L90.0 Lichen sclerosus et atrophicus; N83.202 Unspecified ovarian cyst, left side | CPT/HCPCS: 99396 ==

== ENCOUNTER 2023-09-26 12:42 | Outpatient (REF) | payer OTHER, SELFPAY ==
--- NOTE | ~2023-09-26 | US_ITS ---
EXAMINATION: US PELVIS CLINICAL INFORMATION: Ovarian cyst COMPARISON: 06/28/2023 TECHNIQUE: Ultrasound of the pelvis is performed using both transabdominal and transvaginal transducers along with Doppler. Transvaginal imaging is performed due to inadequate visualization transabdominally. FINDINGS: Uterus: The uterus is retroverted and measures 9.8 x 4.4 x 5.7 cm. The double wall endometrial thickness is 0.43 mm. The uterus is smooth in contour and has normal myometrial echogenicity. There is left uterine fibroid in the body abating the endometrial stripe, measured 2.1 x 2.8 x 2.9 cm, growing since previous study and there is another small 1.2 x 1.0 x 1.0 cm and is new. Adnexa: Both ovaries are visualized. There is normal color flow to the adnexa. There is no ovarian torsion. There is no pelvic ascites or fluid collection. Right ovary measures 2.4 x 1.8 x 1.8 cm. The volume of right ovary measured 4.2 mL Left ovary measures 2.7 x 1.6 x 1.9 cm. The volume of left ovary measures 4.3 mL. There is 2.9 x 3.7 x 2.3 cm paraovarian cyst, diminished in size since previous study when it was measured 3.3 x 3.0 x 3.0 cm US/US pelvic and transvaginal IMPRESSION: 1. 2 uterine fibroids. 2. Decrease in size of left paraovarian cys
== END 2023-09-26 12:43 | disposition home or self-care (01) ==
LOC: HO.US 12:42
PROVIDERS: PCP Internal Medicine; Visit Provider Advanced Practice Midwife
DX: N83.209 Unspecified ovarian cyst, unspecified side (principal)
CPT/HCPCS: 76830; 76856

== ENCOUNTER 2023-09-30 09:52 | Outpatient (REF) | payer OTHER, SELFPAY ==
--- NOTE | ~2023-09-30 | US_ITS ---
EXAMINATION: US VENOUS ULTRASOUND WITH DOPPLER LOWER EXTREMITY, LEFT CLINICAL INFORMATION: Left knee edema COMPARISON: None available. TECHNIQUE: Ultrasound of the deep veins is performed from the hip to the calf with compression sonography and color and pulse Doppler assessment. Spectral analysis with color-flow imaging is performed. FINDINGS: There is normal venous compression and respiratory variation and augmented flow. The visualized common femoral vein, superficial femoral vein, profunda femoral vein, popliteal vein, and the trifurcation region shows no evidence of deep venous thrombosis. There is no significant popliteal fossa cyst. Fluid collection is seen anterior to the knee likely a joint effusion. If the patient's symptoms persist, followup ultrasound in 5 days 7 days might be of value to exclude proximal propagation from a non-visualized calf vein. US/US venous duplex LE LT IMPRESSION: No DVT demonstrated in the left lower extremity. Small knee joint effusion.
--- NOTE | ~2023-09-30 | XR_ITS ---
EXAMINATION: XR KNEE, LEFT CLINICAL INFORMATION: Left knee pain COMPARISON: None available. TECHNIQUE: Four views of the left knee. FINDINGS: Moderate to marked bicompartmental degenerative changes are seen with narrowing in the medial and patellofemoral compartments. A tiny joint effusion is present. Enthesopathy present at the insertion of the quadriceps tendon on the patella. No chondrocalcinosis, fractures or dislocations. XR/XR knee LT 4V IMPRESSION: Moderate to marked bicompartmental degenerative changes.
== END 2023-09-30 09:53 | disposition home or self-care (01) ==
LOC: HO.US 09:52
PROVIDERS: PCP Internal Medicine; Visit Provider Internal Medicine
DX: M25.562 Pain in left knee (principal); R60.0 Localized edema
CPT/HCPCS: 73564; 93971

== ENCOUNTER 2023-10-08 13:04 | Outpatient (AMB) | payer OTHER, SELFPAY ==
[2023-10-08 13:05] VITALS: BP 130/74; BMI 42.9
--- NOTE | 2023-10-08 13:05 | MHC.OFFVIS ---
Vital Signs 10/08/23 13:05 Height 5 ft 4 in Weight 250 lb BMI 42.9 BP 130/74 Blood Pressure Location Rt brachial Position Sitting Intake Visit Reasons: Ultra sound follow up Contact Lens Polisher: Contact Lens Polisher Present Allergies Ivory soap Allergy (Mild, Uncoded 10/08/23 13:08) rash, itching Is last menstrual period known: Yes HPI Comments Details: Patient is here today to discuss the ultrasound findings she has a history of a fibroid in impair ovarian cyst. Recent pelvic pain has resolved. She denies any postmenopausal bleeding episodes. 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 Sexual orientation: Straight/Heterosexual Gender identity: Female Female Reproductive History Menstrual Age of Menarche: 13 Review of Systems Const All systems reviewed & are unremarkable except as noted in HPI and below Endo Reports no additional complaints Physical Exam Vital Signs: Last Vital Signs BP 130/74 10/08/23 13:05 BMI result Body Mass Index 42.9 Const General: cooperative, healthy appearing and no acute distress Psych Appearance: well kempt Attitude: cooperative Thought process: Normal thought process present Results Reviewed Results Reviewed: [address] [address] Ultrasound Report Signed Patient: Ayesha Means MR#: [id number] : 1960 Acct:[id number] Age/Sex: 63 / F ADM Date: 09/26/23 Loc: HO. Attending Dr: Sarah Frazier CNM Ordering Physician: Sarah Frazier CNM Date of Service: 09/26/23 Procedure(s): US pelvic and transvaginal Accession Number(s): [id number] cc: Reid Husain MD; Sarah Frazier CNM~ EXAMINATION: US PELVIS CLINICAL INFORMATION: Ovarian cyst COMPARISON: 06/28/2023 TECHNIQUE: Ultrasound of the pelvis is performed using both transabdominal and transvaginal transducers along with Doppler. Transvaginal imaging is performed due to inadequate visualization transabdominally. FINDINGS: Uterus: The uterus is retroverted and measures 9.8 x 4.4 x 5.7 cm. The double wall endometrial thickness is 0.43 mm. The uterus is smooth in contour and has normal myometrial echogenicity. There is left uterine fibroid in the body abating the endometrial stripe, measured 2.1 x 2.8 x 2.9 cm, growing since previous study and there is another small 1.2 x 1.0 x 1.0 cm and is new. Adnexa: Both ovaries are visualized. There is normal color flow to the adnexa. There is no ovarian torsion. There is no pelvic ascites or fluid collection. Right ovary measures 2.4 x 1.8 x 1.8 cm. The volume of right ovary measured 4.2 mL Left ovary measures 2.7 x 1.6 x 1.9 cm. The volume of left ovary measures 4.3 mL. There is 2.9 x 3.7 x 2.3 cm paraovarian cyst, diminished in size since previous study when it was measured 3.3 x 3.0 x 3.0 cm US/US pelvic and transvaginal IMPRESSION: 1. 2 uterine fibroids. 2. Decrease in size of left paraovarian cys Dictated By: Rossy Dahl MD Signed By: <Electronically signed by Rossy Dahl MD in OV> 09/26/23 1602 DD/ 1319 TD/TT: Round Cutter Operator: Assessment & Plan Assessment & Plan (1) Encounter to discuss test results: Code(s): Z71.2 - Person consulting for explanation of examination or test findings (2) Fibroids: Code(s): D21.9 - Benign neoplasm of connective and other soft tissue, unspecified (3) Thickened endometrium: Code(s): R93.89 - Abnormal findings on diagnostic imaging of other specified body structures Plan Discussed: Ultrasound findings enlarging fibroid, and new onset fibroid. Counseled re: Leiomyoma: common pelvic neoplasm. Differential diagnosis-may include leiomyosarcoma which is a rare uterine sarcoma 3-7/100,000, difficult to distinguish from fibroids on ultrasound from uterine sarcoma's. Unlikely any single test will have a highly positive predictive value. Hysterectomy is not recommended for sole purpose of excluding malignant neoplasm. She does not feel she could ever tolerate a MRI procedure and would much prefer to have surgery instead to not have to deal with future concerns. Endometrial lining thickness, recommendations of EMB. Report any vaginal bleeding, pelvic pressure, bloating, or pain. Consult for surgical exploration verses expectant management offered. Patient prefers a surgical consult, she has not interested in having an endometrial biopsy either and would much prefer to not have to worry. All of her questions and concerns were addressed to the best of my ability and shared decision making. She is agreeable to the plan of care. Referral to MD for level of care/consult. Schedule annual for 1 year. This note is constructed using voice recognition software. While every effort has been made to ensure accuracy, air quality specialist errors may have been included. Orders: Referrals SUPERVISOR CELL MAINTENANCE Referral D21.9 - Benign neoplasm of connective and other soft tissue, unspecified, R93.89 - Abnormal findings on diagnostic imaging of other specified body structures Coding Level of Care Code Est Pt Level 3 (24476) Diagnoses Encounter to discuss test results Z71.2 Fibroids D21.9 Thickened endometrium R93.89
== END 2023-10-08 13:36 | disposition home or self-care (01) ==
PROVIDERS: PCP Internal Medicine; Visit Provider Advanced Practice Midwife
DX: Z71.2 Person consulting for explanation of examination or test findings (principal); D21.9 Benign neoplasm of connective and other soft tissue, unspecified; R93.89 Abnormal findings on diagnostic imaging of other specified body structures
CPT/HCPCS: 99213

== ENCOUNTER → 2023-10-08 13:04 | Outpatient (BNVA) | payer OTHER, SELFPAY | PROVIDERS: PCP Internal Medicine; Visit Provider Advanced Practice Midwife | DX: D21.9 Benign neoplasm of connective and other soft tissue, unspecified (principal); R93.89 Abnormal findings on diagnostic imaging of other specified body structures; Z71.2 Person consulting for explanation of examination or test findings | CPT/HCPCS: 99212 ==

== ENCOUNTER 2023-10-14 11:21 | Outpatient (REF) | payer OTHER, SELFPAY ==
--- NOTE | ~2023-10-14 | XR_ITS ---
EXAMINATION: XR KNEE, LEFT CLINICAL INFORMATION: Pain in left knee COMPARISON: None TECHNIQUE: AP standing view of both knees, lateral and sunrise views of the left knee were obtained. FINDINGS: No fracture. There is a small left joint effusion. There is moderate to marked degenerative changes seen in the medial and patellofemoral joint compartments of the left knee. There is moderate to marked narrowing of the right medial joint compartment. There are tricompartment marginal osteophytes on the left and medial lateral joint compartment osteophytes on the right. Quadriceps enthesopathy is noted on the left. XR/XR knee LT 3V IMPRESSION: 1. Moderate to marked osteoarthritis of the left knee. 2. Moderate to marked osteoarthritis of the right medial joint compartment.
== END 2023-10-14 11:22 | disposition home or self-care (01) ==
LOC: HO.HOSX 11:21
PROVIDERS: Visit Provider Physician Assistant
DX: M17.12 Unilateral primary osteoarthritis, left knee (principal)
CPT/HCPCS: 20610; 73562; 99212; J1010

== ENCOUNTER 2023-10-14 12:21 | Outpatient (AMB) | payer OTHER, SELFPAY ==
--- NOTE | 2023-10-14 12:53 | A.OFFVIS_ITS ---
Vital Signs 10/14/23 12:57 Height 5 ft 4 in Weight 250 lb BMI 42.9 Intake Visit Reasons: NewProb- Left knee pain Intake Note: Ayesha a 63 year old female who presents today for an evaluation of left knee pain. Patient reports her knee pain has been present for about a month, denies injury. Her pain is located at the anterior and posterior aspect of knee. States swelling in her foot as well as a tingling sensation. Her pain increases by the end of the day with being on her feet. Finds some relief with Advil. No previous tx. Allergies Ivory soap Allergy (Mild, Uncoded 10/08/23 13:08) rash, itching Medication List - Last Reconciled 10/14/23 by Lenin Nowak PA-C albuterol sulfate 90 mcg/actuation 0 mcg inhalation betamethasone dipropionate 0.05% 1 appl topical BID 30 days fluocinonide 0.05% 1 appl topical BID hydrochlorothiazide 12.5 mg PO QAM irbesartan (Avapro) 150 mg PO DAILY simvastatin 5 mg PO DAILY triamterene-hydrochlorothiazid 37.5-25 mg 1 cap PO BID zolpidem 5 mg PO BEDTIME PRN HPI HPI NewProb- Left knee pain: Details: 63-year-old female who presents to the office today for an evaluation of left knee pain for about a month. She states she has pain at the anterior aspect and posterior aspect of her knee that is aggravated at the end of the day with being on her feet. She also experiences swelling as well as tingling sensation in her knee. She finds mild relief with Advil. She has not had any treatment in the past. 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 Sexual orientation: Straight/Heterosexual Gender identity: Female Female Reproductive History Menstrual Age of Menarche: 13 Review of Systems Const All systems reviewed & are unremarkable except as noted in HPI and below Physical Exam Vital Signs: BMI result Body Mass Index 42.9 Const General: cooperative and no acute distress Orientation/consciousness: patient oriented x3 HEENT Head: Yes normal to inspection, Yes normocephalic and Yes atraumatic Eyes General: appearance normal, both eyes and all related structures Neck Neck: Yes normal visual inspection and Yes no lymphadenopathy Resp Effort & Inspection: normal respiratory effort and able to speak in complete sentences Cardio Rate: regular rate Peripheral pulses: Peripheral pulses 2+ throughout GI Inspection: Yes normal to inspection Palpation (GI): Soft to palpation Skin General skin exam: no rashes or lesions noted Neuro General: patient oriented x3 Extrem Other: Left knee: Skin intact, no erythema or joint effusion. Tenderness along the medial and lateral joint line. Full ROM with crepitus. Negative Scotty?s. No ligamentous laxity. NVI. ? Psych Appearance: grossly normal Mental Status: mental status grossly normal Office Procedures Joint Injection/Drain Joint Injection/Drain Primary Site: left knee Prep: site was prepped using aseptic technique, ethochloride spray was applied and injection warnings given Injected: 80 mg of, DepoMedrol, with 8 mL of, 1% plain lidocaine and in the subcromial space Approach Used: anterolateral Procedure: The patient tolerated the procedure well and there was some relief with the local anesthesia Coding 95232 - Glenohumeral/Tronchanteric Bursa/Intraarticular Procedure code (CPT) selection complete Assessment & Plan Assessment & Plan (1) Osteoarthritis of left knee: Code(s): M17.12 - Unilateral primary osteoarthritis, left knee Category: Medical Qualifiers: Osteoarthritis type: primary Qualified Code(s): M17.12 - Unilateral primary osteoarthritis, left knee Plan We discussed options today, which include steroid injection. The patient did consent to move forward with the left knee injection, which was tolerated well. I recommended rest, ice, and elevation and OTC anti-inflammatories as needed for discomfort. She was also given a course of physical therapy in the office today. If symptoms persist or worsen over the next 6-8 weeks, patient will contact the office, otherwise follow-up as needed. Orders: Orders XR knee standing BI Today Lenin Nowak PA-C M25.561 - Pain in right knee, M25.562 - Pain in left knee XR knee standing BI Today RAMÓN Grant M25.561 - Pain in right knee, M25.562 - Pain in left knee XR knee LT 3V Today RAMÓN Grant M25.562 - Pain in left knee Patient Instructions: Scribed for Lenin Nowak PA-C, by Mihir Scott medical insurance collector, on 10/14/2023 at 12:30 PM EST.? I, Lenin Nowak PA-C, have personally reviewed and agree with the information entered by the scribe. Coding Level of Care Code Est Pt Level 3 (34216) Diagnoses Primary osteoarthritis of left knee M17.12 Osteoarthritis type: primary CPT Codes Coding - Joint 7: 45547 - Glenohumeral/Tronchanteric Bursa/Intraarticular ([id number])
[2023-10-14 12:57] VITALS: BMI 42.9
== END 2023-10-14 13:29 | disposition home or self-care (01) ==
PROVIDERS: PCP Internal Medicine; Visit Provider Physician Assistant
DX: M17.12 Unilateral primary osteoarthritis, left knee (principal)
CPT/HCPCS: 20610; 99213

== ENCOUNTER 2023-10-22 13:38 | Outpatient (AMB) | payer OTHER, SELFPAY ==
[2023-10-22 13:39] VITALS: BP 130/80; BMI 42.9
--- NOTE | 2023-10-22 13:39 | A.OFFVIS_ITS ---
Vital Signs 10/22/23 13:39 Height 5 ft 4 in Weight 250 lb BMI 42.9 BP 130/80 Blood Pressure Location Lt brachial Position Sitting Intake Visit Reasons: Family history of malignant neoplasm of breast Intake Note: This patient presents for a breast consult, family history of malignant neoplasm of breast. Patient c/o; reports no change in size or shape, reports no discharge from nipples, reports no breast pain or tenderness. Telephone Coin Box Collector Required: No Accompanied by: Self / Same As Patient Allergies Ivory soap Allergy (Mild, Uncoded 10/08/23 13:08) rash, itching Medication List - Last Reconciled 10/22/23 by Madhav Iglesias MD albuterol sulfate 90 mcg/actuation 0 mcg inhalation betamethasone dipropionate 0.05% 1 appl topical BID 30 days celecoxib (Celebrex) 200 mg PO BID 30 days fluocinonide 0.05% 1 appl topical BID hydrochlorothiazide 12.5 mg PO QAM irbesartan (Avapro) 150 mg PO DAILY simvastatin 5 mg PO DAILY triamterene-hydrochlorothiazid 37.5-25 mg 1 cap PO BID zolpidem 5 mg PO BEDTIME PRN HPI Comments Details: 63-year-old female patient presenting for consideration of genetic testing due to a strong family history of cancer. She reports her mother was diagnosed with colon cancer in her 60s. A maternal aunt was also diagnosed with colon cancer also in her 60s. She has a maternal cousin who was diagnosed with breast cancer. She denies any ongoing breast symptoms and denies previous breast surgery. She is 3 para 3. Menarche was the age of 13. Her last menstrual period was at around 53. She denies a history of breast-feeding. Her past history is significant for hypertension, hyperlipidemia, and arthritis. She has had previous skin lesions excised and an umbilical hernia repaired. [facility] Medical History Fibroid Lichen sclerosus Asthma High blood pressure High cholesterol Surgical History H/O umbilical hernia repair H/O hand surgery Hx of tonsillectomy Family History Mother Colon cancer Maternal Aunt Colon cancer Family/Other History of breast cancer Family/Other History of breast cancer Social History Alcohol intake: current Alcohol intake frequency: a few times a month Comment: medicated with po tylenol Patient Tobacco Use Status: Former Tobacco user Tobacco use type: Cigarette Years Smoked: 10 Current occupational status: employed 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 Sexual orientation: Straight/Heterosexual Gender identity: Female Female Reproductive History Menstrual Age of Menarche: 13 Total pregnancies: 3 Full term: 3 Review of Systems Const All systems reviewed & are unremarkable except as noted in HPI and below Physical Exam Vital Signs: Last Vital Signs BP 130/80 10/22/23 13:39 BMI result Body Mass Index 42.9 Const General: cooperative and no acute distress Nutritional Appearance: well nourished Orientation/consciousness: patient oriented x3 Limitations: no limitations HEENT Head: Yes normocephalic and Yes atraumatic Ears: hearing grossly normal bilaterally Resp Effort & Inspection: normal respiratory effort, no audible wheezes, no cough and no respiratory distress Cardio Jugular venous distension: no JVD GI Inspection: Yes normal to inspection Skin Other: Warm, dry, no rash Neuro General: patient oriented x3 Extrem General: Yes no clubbing, cyanosis or edema Assessment & Plan Assessment & Plan (1) Family history of colon cancer: Code(s): Z80.0 - Family history of malignant neoplasm of digestive organs Category: Medical (2) Family history of breast cancer: Code(s): Z80.3 - Family history of malignant neoplasm of breast Category: Medical Plan 63-year-old female patient presenting for consideration of genetic testing. I reviewed the procedure, risks and benefits of the genetic testing. She wishes to proceed with the testing and will return in approximately 6 weeks to review the results and discuss treatment options. Coding Level of Care Code New Pt Level 4 (20283) Diagnoses Family history of colon cancer Z80.0 Family history of breast cancer Z80.3
== END 2023-10-22 14:14 | disposition home or self-care (01) ==
PROVIDERS: PCP Internal Medicine; Visit Provider Surgery
DX: Z80.0 Family history of malignant neoplasm of digestive organs (principal); Z80.3 Family history of malignant neoplasm of breast
CPT/HCPCS: 99203

== ENCOUNTER → 2023-10-22 13:38 | Outpatient (BNVA) | payer OTHER, SELFPAY | PROVIDERS: PCP Internal Medicine; Visit Provider Surgery | DX: Z80.0 Family history of malignant neoplasm of digestive organs (principal); Z80.3 Family history of malignant neoplasm of breast | CPT/HCPCS: 99202 ==

== ENCOUNTER 2023-11-01 08:24 | Outpatient (AMB) | payer OTHER, SELFPAY ==
[2023-11-01 08:30] VITALS: BP 124/80
--- NOTE | 2023-11-01 08:30 | A.OFFVIS_ITS ---
Vital Signs 11/01/23 08:30 BP 124/80 Intake Visit Reasons: Pelvic pain, hx ovarian cysts Intake Note: ongoing left sided pain Retail And Restaurant Associate: Retail And Restaurant Associate Present (Carol) Allergies Ivory soap Allergy (Mild, Uncoded 11/01/23 08:30) rash, itching HPI Comments Details: Patient is here today with an increase discomfort of pain in her left pelvic region. Onset 2 days ago pain was 4 to 5/10. She has a consult at [facility] December 10 2023 due to per ovarian cyst. She was not able to tolerate getting a MRI procedure and preferred to have a surgical consult. She denies any urinary symptoms and does not have any postmenopausal bleeding. History of a known fibroid. Taking ibuprofen for pain management. 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 Sexual orientation: Straight/Heterosexual Gender identity: Female Female Reproductive History Menstrual Age of Menarche: 13 Review of Systems Const All systems reviewed & are unremarkable except as noted in HPI and below Physical Exam Vital Signs: Last Vital Signs BP 124/80 11/01/23 08:30 Const General: cooperative, healthy appearing and no acute distress Orientation/consciousness: patient oriented x3 GI Inspection: Yes normal to inspection Palpation (GI): Soft to palpation and Other GI palpation findings present (Nontender) Rectal Exam - Female: visual inspection normal General: Yes bladder normal to palpation External Female Exam: normal appearance of the urethra Speculum Exam - Vagina: normal appearance of the vagina, normal palpation and normal vaginal discharge Speculum Exam - Cervix: normal appearance of the cervix and normal palpation Bimanual exam- vagina & uterus: normal bimanual exam, normal palpation, uterine size normal, bladder normal to palpation, normal palpation, uterine shape normal and non-tender Bimanual Exam- Adnexa, other: normal adnexae Neuro General: patient oriented x3 Assessment & Plan Assessment & Plan (1) Pelvic pain: Code(s): R10.2 - Pelvic and perineal pain (2) Para-ovarian cyst: Code(s): Q50.5 - Embryonic cyst of broad ligament Plan Plan stat pelvic ultrasound today. Reviewed warnings of when to seek emergency care. Keep follow up with [facility] for surgical consult. All of her questions and concerns were addressed to the best of my ability and shared decision making. She is agreeable to the plan of care. This note is constructed using voice recognition software. While every effort has been made to ensure accuracy, cloud infrastructure architect errors may have been included. Orders: Orders US pelvic and transvaginal Today N83.209 - Unspecified ovarian cyst, unspecified side, R10.2 - Pelvic and perineal pain Coding Level of Care Code Est Pt Level 3 (18168) Diagnoses Pelvic pain R10.2 Para-ovarian cyst Q50.5
== END 2023-11-01 09:24 | disposition home or self-care (01) ==
PROVIDERS: PCP Internal Medicine; Visit Provider Advanced Practice Midwife
DX: R10.2 Pelvic and perineal pain (principal); Q50.5 Embryonic cyst of broad ligament
CPT/HCPCS: 99213

== ENCOUNTER → 2023-11-01 08:24 | Outpatient (BNVA) | payer OTHER, SELFPAY | PROVIDERS: PCP Internal Medicine; Visit Provider Advanced Practice Midwife ==

== ENCOUNTER 2023-11-01 08:56 | Outpatient (REF) | payer OTHER, SELFPAY ==
--- NOTE | ~2023-11-01 | US_ITS ---
EXAMINATION: US PELVIS CLINICAL INFORMATION: Ovarian cyst. Postmenopausal. COMPARISON: 09/26/2023 TECHNIQUE: Ultrasound of the pelvis is performed using both transabdominal and transvaginal transducers along with Doppler. Transvaginal imaging is performed due to inadequate visualization transabdominally. FINDINGS: Uterus: The uterus is anteverted. The uterus measures 9.5 x 4.3 x 5.8 cm. Uterine echotexture is heterogeneous. Possible fibroid measures 3.0 x 2.1 x 2.9 cm. Previous measurements were 2.9 x 2.1 x 2.8 cm. The endometrial stripe is not well visualized. Hypoechoic focus in the lower uterine segment measures 1.2 x 1.0 x 1.3 cm. Cervical nabothian cysts are present. Few calcifications in the cervix. Adnexa: Right ovary measures 2.4 x 1.6 x 1.7 cm. Left ovary not visualized. No free fluid in pelvis. US/US pelvic and transvaginal IMPRESSION: Extremely limited study. Indeterminate hypoechoic focus in the lower uterine segment measuring 1.3 x 1.0 x 1.3 cm. Consider MRI pelvis for more complete characterization.
== END 2023-11-01 08:57 | disposition home or self-care (01) ==
LOC: HO.US 08:56
PROVIDERS: Visit Provider Advanced Practice Midwife
DX: R10.2 Pelvic and perineal pain (principal); N83.209 Unspecified ovarian cyst, unspecified side; Q50.5 Embryonic cyst of broad ligament
CPT/HCPCS: 76830; 76856; 99212

== ENCOUNTER 2023-12-12 11:04 | Outpatient (AMB) | payer OTHER, SELFPAY ==
--- NOTE | 2023-12-12 11:20 | A.OFFVIS_ITS ---
Intake Visit Reasons: OV-pain of the left knee F/U Intake Note: Ayesha a 63 year old female who presents today for a follow up of left knee pain, last injection 10/14/23. Patient reports injection provided her relief until about a month ago. Her pain presented after she went for a walk while on vacation. Denies any injury. Her pain is radiating down her leg to her foot. No relief with celebrex, elevation and icing. Allergies Ivory soap Allergy (Mild, Uncoded 12/12/23 15:10) rash, itching Medication List - Last Reconciled 12/12/23 by Lenin Nowak PA-C albuterol sulfate 90 mcg/actuation 0 mcg inhalation betamethasone dipropionate 0.05% 1 appl topical BID 30 days celecoxib (Celebrex) 200 mg PO BID 30 days fluocinonide 0.05% 1 appl topical BID hydrochlorothiazide 12.5 mg PO QAM irbesartan (Avapro) 150 mg PO DAILY simvastatin 5 mg PO DAILY triamterene-hydrochlorothiazid 37.5-25 mg 1 cap PO BID zolpidem 5 mg PO BEDTIME PRN HPI HPI OV-pain of the left knee F/U: Details: 63-year-old female who returns to the office today for a follow-up of left knee pain. She had her last injection on 10/14/23 which provided her relief until about a month ago when she went for a walk on vacation. She has not had any injury. She currently states she has pain in her knee that radiates down her leg to the foot. She finds no relief with Celebrex, elevation and icing. 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 Sexual orientation: Straight/Heterosexual Gender identity: Female Female Reproductive History Menstrual Age of Menarche: 13 Review of Systems Const All systems reviewed & are unremarkable except as noted in HPI and below Physical Exam Const General: cooperative and no acute distress Orientation/consciousness: patient oriented x3 HEENT Head: Yes normal to inspection, Yes normocephalic and Yes atraumatic Eyes General: appearance normal, both eyes and all related structures Neck Neck: Yes normal visual inspection and Yes no lymphadenopathy Resp Effort & Inspection: normal respiratory effort and able to speak in complete sentences Cardio Rate: regular rate Peripheral pulses: Peripheral pulses 2+ throughout GI Inspection: Yes normal to inspection Palpation (GI): Soft to palpation Skin General skin exam: no rashes or lesions noted Neuro General: patient oriented x3 Extrem Other: Left knee: Skin intact, no erythema or joint effusion. Tenderness along the medial and lateral joint line. Full ROM with crepitus. Negative Scotty?s. No ligamentous laxity. NVI. ? Psych Appearance: grossly normal Mental Status: mental status grossly normal Assessment & Plan Assessment & Plan (1) Osteoarthritis of left knee: Code(s): M17.12 - Unilateral primary osteoarthritis, left knee Category: Medical Qualifiers: Osteoarthritis type: primary Qualified Code(s): M17.12 - Unilateral primary osteoarthritis, left knee Plan Reassurance was given that she may have an acute flareup of arthritis and a degenerative meniscus tear. We will continue to treat this conservatively. She will continue with Celebrex. She would also like to take Advil with this. I did put in an order for gel injection on the left knee and once this is approved, I will see her back to proceed. She will contact if she has any questions or concerns going forward. Patient Instructions: Scribed for Lenin Nowak PA-C, by Mihir Scott certified medical biller, on 12/12/2023 at 11:15 AM EST.? I, Lenin Nowak PA-C, have personally reviewed and agree with the information entered by the scribe. Coding Level of Care Code Est Pt Level 3 (52270) Complex EM visit Add On G2211 Diagnoses Primary osteoarthritis of left knee M17.12 Osteoarthritis type: primary
== END 2023-12-12 12:11 | disposition home or self-care (01) ==
PROVIDERS: PCP Internal Medicine; Visit Provider Physician Assistant
DX: M17.12 Unilateral primary osteoarthritis, left knee (principal)
CPT/HCPCS: 99213; G2211

== ENCOUNTER → 2023-12-12 11:04 | Outpatient (BNVA) | payer OTHER, SELFPAY | PROVIDERS: PCP Internal Medicine; Visit Provider Physician Assistant | DX: M17.12 Unilateral primary osteoarthritis, left knee (principal) | CPT/HCPCS: 99212 ==

== ENCOUNTER 2024-01-06 09:48 | Outpatient (AMB) | payer OTHER, SELFPAY ==
--- NOTE | 2024-01-06 10:00 | MHC.OFFVIS ---
Vital Signs 01/06/24 10:07 Height 5 ft 4 in Weight 250 lb BMI 42.9 Intake Visit Reasons: ov- Euflexxa LT knee #1 Intake Note: Ayesha a 63 year old female who presents today for a left knee Euflexxa injection #1. Allergies Ivory soap Allergy (Mild, Uncoded 01/06/24 10:05) rash, itching Medication List - Last Reconciled 01/06/24 by Lenin Nowak PA-C albuterol sulfate 90 mcg/actuation 0 mcg inhalation betamethasone dipropionate 0.05% 1 appl topical BID 30 days celecoxib (Celebrex) 200 mg PO BID 30 days fluocinonide 0.05% 1 appl topical BID hydrochlorothiazide 12.5 mg PO QAM irbesartan (Avapro) 150 mg PO DAILY simvastatin 5 mg PO DAILY triamterene-hydrochlorothiazid 37.5-25 mg 1 cap PO BID zolpidem 5 mg PO BEDTIME PRN HPI HPI ov- Euflexxa LT knee #1: Details: 63-year-old female who returns to the office today for left knee Euflexxa gel injection #1. [facility] Medical History Fibroid Lichen sclerosus Asthma High blood pressure High cholesterol Surgical History H/O umbilical hernia repair H/O hand surgery Hx of tonsillectomy Family History Mother Colon cancer Maternal Aunt Colon cancer Family/Other History of breast cancer Family/Other History of breast cancer Social History Alcohol intake: current Alcohol intake frequency: a few times a month Comment: medicated with po tylenol Patient Tobacco Use Status: Former Tobacco user Tobacco use type: Cigarette Years Smoked: 10 Current occupational status: employed 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 Sexual orientation: Straight/Heterosexual Gender identity: Female Female Reproductive History Menstrual Age of Menarche: 13 Review of Systems Const All systems reviewed & are unremarkable except as noted in HPI and below Physical Exam Vital Signs: BMI result Body Mass Index 42.9 Const General: cooperative and no acute distress Orientation/consciousness: patient oriented x3 HEENT Head: Yes normal to inspection, Yes normocephalic and Yes atraumatic Eyes General: appearance normal, both eyes and all related structures Neck Neck: Yes normal visual inspection and Yes no lymphadenopathy Resp Effort & Inspection: normal respiratory effort and able to speak in complete sentences Cardio Rate: regular rate Peripheral pulses: Peripheral pulses 2+ throughout GI Inspection: Yes normal to inspection Palpation (GI): Soft to palpation Skin General skin exam: no rashes or lesions noted Neuro General: patient oriented x3 Extrem Other: Left knee: Skin intact, no erythema or joint effusion. Tenderness along the medial and lateral joint line. Full ROM with crepitus. Negative Scotty?s. No ligamentous laxity. NVI. ? Psych Appearance: grossly normal Mental Status: mental status grossly normal Office Procedures Joint Injection/Aspiration Joint Injection/Aspiration Details: euflexxa Primary Site: left knee Prep: site was prepped using aseptic technique, ethochloride spray was applied and injection warnings given Injected: in the joint Approach Used: anterolateral Procedure: The patient tolerated the procedure well Coding 78638 - Glenohumeral/Tronchanteric Bursa/Intraarticular Procedure code (CPT) selection complete Assessment & Plan Assessment & Plan (1) Osteoarthritis of left knee: Code(s): M17.12 - Unilateral primary osteoarthritis, left knee Category: Medical Qualifiers: Osteoarthritis type: primary Qualified Code(s): M17.12 - Unilateral primary osteoarthritis, left knee Plan We discussed options today, which include Euflexxa gel injection. The patient did consent to move forward with the left knee Euflexxa gel injection #1, which was tolerated well. I recommended rest, ice, and elevation and OTC anti-inflammatories as needed for discomfort. She will return next week. Patient Instructions: Scribed for Lenin Nowak PA-C, by Mihir Scott senior medical technologist, on 01/06/2024 at 10:00 AM EST.? I, Lenin Nowak PA-C, have personally reviewed and agree with the information entered by the scribe. Coding Level of Care Code Procedure Only Diagnoses Primary osteoarthritis of left knee M17.12 Osteoarthritis type: primary CPT Codes Coding - Joint 7: 54222 - Glenohumeral/Tronchanteric Bursa/Intraarticular ([id number])
[2024-01-06 10:07] VITALS: BMI 42.9
== END 2024-01-06 10:52 | disposition home or self-care (01) ==
PROVIDERS: PCP Internal Medicine; Visit Provider Physician Assistant
DX: M17.12 Unilateral primary osteoarthritis, left knee (principal)
CPT/HCPCS: 20610

== ENCOUNTER → 2024-01-06 09:48 | Outpatient (BNVA) | payer OTHER, SELFPAY | PROVIDERS: PCP Internal Medicine; Visit Provider Physician Assistant | DX: M17.12 Unilateral primary osteoarthritis, left knee (principal) | CPT/HCPCS: 20610; J7323 ==

== ENCOUNTER 2024-01-13 09:14 | Outpatient (AMB) | payer OTHER, SELFPAY ==
--- NOTE | 2024-01-13 09:18 | MHC.OFFVIS ---
Intake Visit Reasons: ov- Euflexxa LT knee #2 Intake Note: Ayesha a 63 year old female who presents today for a left knee Euflexxa injection #2. Allergies Ivory soap Allergy (Mild, Uncoded 01/13/24 09:55) rash, itching HPI HPI ov- Euflexxa LT knee #2: Details: 63-year-old female who returns to the office today for a left knee Euflexxa gel injection #2. 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 Sexual orientation: Straight/Heterosexual Gender identity: Female Female Reproductive History Menstrual Age of Menarche: 13 Review of Systems Const All systems reviewed & are unremarkable except as noted in HPI and below Physical Exam Const General: cooperative and no acute distress Orientation/consciousness: patient oriented x3 HEENT Head: Yes normal to inspection, Yes normocephalic and Yes atraumatic Eyes General: appearance normal, both eyes and all related structures Neck Neck: Yes normal visual inspection and Yes no lymphadenopathy Resp Effort & Inspection: normal respiratory effort and able to speak in complete sentences Cardio Rate: regular rate Peripheral pulses: Peripheral pulses 2+ throughout GI Inspection: Yes normal to inspection Palpation (GI): Soft to palpation Skin General skin exam: no rashes or lesions noted Neuro General: patient oriented x3 Extrem Other: Left knee: Skin intact, no erythema or joint effusion. Tenderness along the medial and lateral joint line. Full ROM with crepitus. Negative Scotty?s. No ligamentous laxity. NVI. ? Psych Appearance: grossly normal Mental Status: mental status grossly normal Office Procedures Joint Injection/Aspiration Joint Injection/Aspiration Details: eufelxxa lt knee Primary Site: left knee Prep: site was prepped using aseptic technique, ethochloride spray was applied and injection warnings given Injected: in the joint Approach Used: anterolateral Procedure: The patient tolerated the procedure well Coding 30011 - Glenohumeral/Tronchanteric Bursa/Intraarticular Procedure code (CPT) selection complete Assessment & Plan Assessment & Plan (1) Osteoarthritis of left knee: Code(s): M17.12 - Unilateral primary osteoarthritis, left knee Category: Medical Qualifiers: Osteoarthritis type: primary Qualified Code(s): M17.12 - Unilateral primary osteoarthritis, left knee Plan We discussed options today, which include Euflexxa gel injection. The patient did consent to move forward with the left knee Euflexxa gel injection #2, which was tolerated well. I recommended rest, ice, and elevation and OTC anti-inflammatories as needed for discomfort. She will see me back next week for Euflexxa gel injection #3. Patient Instructions: Scribed for Lenin Nowak PA-C, by Mihir Scott medical lab scientist, on 01/13/2024 at 9:30 AM EST.? I, Lenin Nowak PA-C, have personally reviewed and agree with the information entered by the scribe. Coding Level of Care Code Procedure Only Diagnoses Primary osteoarthritis of left knee M17.12 Osteoarthritis type: primary CPT Codes Coding - Joint 7: 91170 - Glenohumeral/Tronchanteric Bursa/Intraarticular ([id number])
== END 2024-01-13 09:55 | disposition home or self-care (01) ==
PROVIDERS: PCP Internal Medicine; Visit Provider Physician Assistant
DX: M17.12 Unilateral primary osteoarthritis, left knee (principal)
CPT/HCPCS: 20610

== ENCOUNTER → 2024-01-13 09:14 | Outpatient (BNVA) | payer OTHER, SELFPAY | PROVIDERS: PCP Internal Medicine; Visit Provider Physician Assistant | DX: M17.12 Unilateral primary osteoarthritis, left knee (principal) | CPT/HCPCS: 20610; J7323 ==

== ENCOUNTER 2024-01-20 09:18 | Outpatient (AMB) | payer OTHER, SELFPAY ==
--- NOTE | 2024-01-20 09:26 | A.OFFVIS_ITS ---
Intake Visit Reasons: ov- Euflexxa LT knee #3 Intake Note: Ayesha a 63 year old female who presents today for a left knee Euflexxa injection #3. Patient reports feeling some relief with injections. Allergies Ivory soap Allergy (Mild, Uncoded 01/20/24 09:31) rash, itching Medication List - Last Reconciled 01/20/24 by Lenin Nowak PA-C albuterol sulfate 90 mcg/actuation 0 mcg inhalation betamethasone dipropionate 0.05% 1 appl topical BID 30 days celecoxib (Celebrex) 200 mg PO BID 30 days fluocinonide 0.05% 1 appl topical BID hydrochlorothiazide 12.5 mg PO QAM irbesartan (Avapro) 150 mg PO DAILY simvastatin 5 mg PO DAILY triamterene-hydrochlorothiazid 37.5-25 mg 1 cap PO BID zolpidem 5 mg PO BEDTIME PRN HPI HPI ov- Euflexxa LT knee #3: Details: 63-year-old female who returns to the office today for left knee Euflexxa gel injection #3. 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 Sexual orientation: Straight/Heterosexual Gender identity: Female Female Reproductive History Menstrual Age of Menarche: 13 Review of Systems Const All systems reviewed & are unremarkable except as noted in HPI and below Physical Exam Const General: cooperative and no acute distress Orientation/consciousness: patient oriented x3 HEENT Head: Yes normal to inspection, Yes normocephalic and Yes atraumatic Eyes General: appearance normal, both eyes and all related structures Neck Neck: Yes normal visual inspection and Yes no lymphadenopathy Resp Effort & Inspection: normal respiratory effort and able to speak in complete sentences Cardio Rate: regular rate Peripheral pulses: Peripheral pulses 2+ throughout GI Inspection: Yes normal to inspection Palpation (GI): Soft to palpation Skin General skin exam: no rashes or lesions noted Neuro General: patient oriented x3 Extrem Other: Left knee: Skin intact, no erythema or joint effusion. Tenderness along the medial and lateral joint line. Full ROM with crepitus. Negative Scotty?s. No ligamentous laxity. NVI. ? Psych Appearance: grossly normal Mental Status: mental status grossly normal Office Procedures Joint Injection/Aspiration Joint Injection/Aspiration Details: left knee euflexxa Primary Site: left knee Prep: site was prepped using aseptic technique, ethochloride spray was applied and injection warnings given Injected: in the joint Approach Used: anterolateral Procedure: The patient tolerated the procedure well Coding 28310 - Glenohumeral/Tronchanteric Bursa/Intraarticular Procedure code (CPT) selection complete Assessment & Plan Assessment & Plan (1) Osteoarthritis of left knee: Code(s): M17.12 - Unilateral primary osteoarthritis, left knee Category: Medical Qualifiers: Osteoarthritis type: primary Qualified Code(s): M17.12 - Unilateral primary osteoarthritis, left knee Plan We discussed options today, which include Euflexxa gel injection #3. The patient did consent to move forward with the left knee Euflexxa gel injection #3, which was tolerated well. I recommended rest, ice, and elevation and OTC anti- inflammatories as needed for discomfort. If symptoms persist or worsen favio the next 6-8 weeks, patient will contact the office, otherwise follow-up as needed. ? Patient Instructions: Scribed for Lenin Nowak PA-C, by Mihir Scott family practice medical doctor, on 01/20/2024 at 9:30 AM EST.? I, Lenin Nowak PA-C, have personally reviewed and agree with the information entered by the scribe. Coding Level of Care Code Procedure Only Diagnoses Primary osteoarthritis of left knee M17.12 Osteoarthritis type: primary CPT Codes Coding - Joint 7: 58143 - Glenohumeral/Tronchanteric Bursa/Intraarticular ([id number])
== END 2024-01-20 09:40 | disposition home or self-care (01) ==
PROVIDERS: PCP Internal Medicine; Visit Provider Physician Assistant
DX: M17.12 Unilateral primary osteoarthritis, left knee (principal)
CPT/HCPCS: 20610

== ENCOUNTER → 2024-01-20 09:18 | Outpatient (BNVA) | payer OTHER, SELFPAY | PROVIDERS: PCP Internal Medicine; Visit Provider Physician Assistant | DX: M17.12 Unilateral primary osteoarthritis, left knee (principal) | CPT/HCPCS: 20610; J7323 ==

== ENCOUNTER 2024-01-23 09:13 | Outpatient (REF) | payer OTHER, SELFPAY ==
[2024-01-23 09:59] LABS: Influenza A PCR NEGATIVE (Negative); Influenza B PCR NEGATIVE (Negative); Resp Syncy Virus RNA Qual PCR NEGATIVE (Negative); SARS COV2 PCR INHOUSE NEGATIVE (Negative)
== END 2024-01-23 09:14 | disposition home or self-care (01) ==
LOC: HO.LNP 09:13
PROVIDERS: Visit Provider Internal Medicine
DX: R06.02 Shortness of breath (principal); R05.9 Cough, unspecified
CPT/HCPCS: 0241U

== ENCOUNTER 2024-03-04 08:11 | Outpatient (REF) | payer OTHER, SELFPAY ==
--- NOTE | ~2024-03-04 | MM_ITS ---
EXAMINATION: MM SCREENING DIGITAL BREAST TOMOSYNTHESIS, BILATERAL CLINICAL INFORMATION: Screening. Asymptomatic. COMPARISON: Mammography: Comparison is made with available priors TECHNIQUE: Digital breast mammography with tomosynthesis is performed in both the craniocaudal and mediolateral oblique views along with computer-aided detection (CAD). FINDINGS: There are scattered areas of fibroglandular density (ACR BI-RADS breast composition Category b). There are no significant masses, abnormal calcifications, or other abnormalities. MM/MM tomosynthesis screening BI IMPRESSION: No mammographic evidence of malignancy. ASSESSMENT: BI-RADS BI-RADS 1 - Negative RECOMMENDATION: Routine annual mammography screening. 1 year F/U This examination should not preclude the clinical evaluation of a suspicious palpable abnormality. This patient's information was entered into a reminder system with a target due date for their next mammogram. Electronically signed by: Eula Cruz DO 03/11/2024 11:46 AM JOHANNE
== END 2024-03-04 08:12 | disposition home or self-care (01) ==
LOC: HO.MAMMO 08:11
PROVIDERS: PCP Internal Medicine; Visit Provider Internal Medicine
DX: Z12.31 Encounter for screening mammogram for malignant neoplasm of breast (principal)
CPT/HCPCS: 77063; 77067

== ENCOUNTER → 2024-03-04 08:15 | Outpatient (BNV) | payer OTHER, SELFPAY | PROVIDERS: PCP Internal Medicine; Visit Provider Internal Medicine | DX: Z12.31 Encounter for screening mammogram for malignant neoplasm of breast (principal) | CPT/HCPCS: 77063; 77067 ==

== ENCOUNTER 2024-03-10 06:24 | Day surgery (SDC) | payer OTHER, SELFPAY ==
[2024-03-06 10:40] VITALS: BMI 41.5
[2024-03-10 06:34] VITALS: BMI 41.9
[2024-03-10 06:48] VITALS: BP 158/85; PULSE 82; RESP 18; TEMP 36.3; O2SAT 97
[2024-03-10] MEDS: Lactated Ringers 1,000 ML 100 ML IVCONT (06:59)
--- NOTE | 2024-03-10 07:34 | P.HPSUR_ITS ---
Pre-Procedural Eval Section A - 24 Hr Update-Section A only Date of Service: 03/10/24 Section B - Complete if H&P > 30 days Chief Complaint: hx malignant neoplasm,screening Details of Present Illness: see H&P no changes Relevant Family History (Specify if Yes): No Relevant Social History: None Present Medications: see Short Stay Collaborative assessment Medical History: No relevant PMH History of Previous Operations: No relevant previous surgery Allergies: Allergies Allergy/AdvReac Type Severity Reaction Status Date / Time Ivory soap Allergy Mild rash, Uncoded 03/10/24 06:40 itching Review of Systems Sugical H&P ROS: Negative: Constitution, Cardiovascular, Respiratory, Neurological, Psychiatric, Hem-Onc, Allergic/Immunologic, Gastrointestinal, Genitourinary, Musculoskeletal, Integumentary, Endocrine and Eyes/Ears/Nose/T hroat Exam Surgical H&P Exam: Normal: HEENT, Normal: Heart, Normal: Lungs, Normal: Extremities, Normal: Abdomen, Normal: Skin and Normal: Neurological Plan Diagnosis/Plan: Unchanged I have reviewed the history and physical and performed a pertinent physical examination on my patient. No changes have occurred unless specified. Time Spent With Patient Time: Total time managing care of this patient today ____ minutes.
--- NOTE | 2024-03-10 07:39 | HO.ANESPROP2 ---
HPI - Anesthesia Eval Consult details Narrative: colon screen PMFSH Active Problems Active Problems: All Active Problems Family history of breast cancer (Acute) Family history of colon cancer (Acute) Osteoarthritis of left knee (Acute) Encounter for well woman exam with routine gynecological exam (Acute) Angiolipoma (Acute) Mass of soft tissue of left upper extremity (Acute) Lichen sclerosus (Acute) Past Medical History Medical History Pre-diabetes Fibroid Lichen sclerosus Asthma High blood pressure High cholesterol Family History Family History Mother Colon cancer Maternal Aunt Colon cancer Family/Other History of breast cancer Family/Other History of breast cancer Family history of problems with anesthesia: No Surgical History Surgical History History of back surgery H/O colonoscopy H/O umbilical hernia repair H/O hand surgery Hx of tonsillectomy History of Problems with Anesthesia: No Social History Social History Are you a primary residential care facility manager to a significant other at home: No Do you presently have visiting nurse or other home services: No Alcohol intake: current Alcohol intake frequency: a few times a month Comment: medicated with po tylenol Patient Tobacco Use Status: Former Tobacco user Tobacco use type: Cigarette Use of substances other than those prescribed or required for medical reasons: No Have you been hit, kicked, punched, or otherwise hurt by someone within the past year? 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 Sexual orientation: Straight/Heterosexual Gender identity: Female Meds Allergies Allergy/AdvReac Type Severity Reaction Status Date / Time Ivory soap Allergy Mild rash, Uncoded 03/10/24 06:40 itching Active Medications: Current Medications Lactated Ringer's (Lr) 1,000 mls @ 100 mls/hr IVCONT .Q10H POONAM Last Admin: 03/10/24 06:59 Dose: 100 mls/hr Home Medications ?Medication ?Instructions ?Recorded ?Confirmed ?Last Taken ?Type irbesartan 150 mg tablet (Avapro) 150 mg PO DAILY 04/04/21 03/10/24 03/10/24 06:00 History simvastatin 5 mg tablet 5 mg PO DAILY 04/04/21 03/06/24 Unknown History albuterol sulfate 90 mcg/actuation 90 mcg inhalation Q4H PRN 09/20/22 03/06/24 Unknown History aerosol inhaler Shortness Of Breath Or Wheezing triamterene 37.5 1 cap PO BID 09/25/23 03/06/24 Unknown History mg-hydrochlorothiazide 25 mg capsule zolpidem 5 mg tablet 5 mg PO BEDTIME PRN Insomnia 09/25/23 03/06/24 Unknown History Exam Height,Weight and Vital Signs: Height 5 ft 4 in Weight 110.733 kg Last Vital Signs Temp 97.4 F 03/10/24 06:48 Pulse 82 03/10/24 06:48 Resp 18 03/10/24 06:48 BP 158/85 H 03/10/24 06:48 Pulse Ox 97 03/10/24 06:48 O2 Del Method Room Air 03/10/24 06:48 Airway Mallampati Class: II TM Dist: >3cm Neck ROM: Full Heart: rrr Lungs: cta Assessment and Plan Assessment Anesthesia Assessment: Anesthesia Plan Discussed Final Anesthetic Review Family History of Problems with Anesthesia: No History of Problems with Anesthesia: No NPO: Yes ASA Class: III Final Preanesthetic Review: No Changes in Pt Med Stat, Meds/Allgs Chart Reviewed, Consent Obtained/Reviewed and Anes Risks/Benef Reviewed Patient Risk: Low Procedure Risk: Low Anesthetic Plan Anesthetic Plan: MAC: Disposition: Standard PACU
[2024-03-10 08:15] VITALS: BP 105/57; PULSE 89; RESP 16; TEMP 37.1; O2SAT 96
--- NOTE | 2024-03-10 08:24 | OP_ITS ---
DATE OF SERVICE: 03/10/2024 SURGEON: Favian Gonzalez MD INDICATIONS: Colon cancer screening. PREOPERATIVE DIAGNOSIS: POSTOPERATIVE DIAGNOSIS: PROCEDURE PERFORMED: Colonoscopy to the terminal ileum with biopsy. ESTIMATED BLOOD LOSS: COMPLICATIONS: ANESTHESIA: Medications; monitored anesthesia care. ASSISTANTS: SPECIMENS: DESCRIPTION OF PROCEDURE: A history and physical performed. The risks and benefits of the procedure were explained to the patient. Informed consent was obtained. The patient was placed in the left lateral decubitus position. A digital rectal exam was performed and was found to be normal. The Olympus pediatric videocolonoscope was introduced into the rectum and advanced to the cecum. The cecum was identified by transillumination, palpation, and identification of ileocecal valve. Examination was performed. The scope was removed. She tolerated the procedure well and was taken to recovery area in stable condition. FINDINGS: The terminal ileum was examined and appeared normal. The visualized colonic mucosa was within normal limits without evidence of masses or ulcers. A single polyp was identified and removed with biopsy forceps. This measured less than 5 mm and was located at the hepatic flexure. No other polyps were identified. There was minimal sigmoid diverticulosis. Retroflexed examination was normal. IMPRESSION: Colon polyp. RECOMMENDATION: Follow up the biopsy results. MD JUAN Mckinney/CATALINAL / [id number]
[2024-03-10 08:29] VITALS: BP 118/71; PULSE 76; RESP 16; TEMP 36.6; O2SAT 95
--- NOTE | 2024-03-10 09:17 | P.BOP_ITS ---
Brief Operative Note Date of Service: 03/10/24 Pre-op diagnosis: screening Post-op diagnosis: same Surgeon: Favian Gonzalez MD Anesthesia: MAC Was an Insurance Account Assistant used for this Procedure?: No Estimated blood loss (mL): 2 Pathology: other Condition: stable Disposition: PACU
== END 2024-03-10 09:01 | disposition home or self-care (01) ==
PROVIDERS: PCP Internal Medicine; Visit Provider Internal Medicine Gastroenterology
PROC: 0DJD8ZZ Inspection of Lower Intestinal Tract, Via Natural or Artificial Opening Endoscopic (ICD-10-PCS; CPT 45378; principal; 2024-03-10 07:30)
DX: Z12.11 Encounter for screening for malignant neoplasm of colon (principal); D12.3 Benign neoplasm of transverse colon; K57.30 Diverticulosis of large intestine without perforation or abscess without bleeding; Z80.0 Family history of malignant neoplasm of digestive organs; E11.9 Type 2 diabetes mellitus without complications; I10 Essential (primary) hypertension; E78.5 Hyperlipidemia, unspecified; J45.909 Unspecified asthma, uncomplicated; Z87.891 Personal history of nicotine dependence; Z79.02 Long term (current) use of antithrombotics/antiplatelets; Z79.899 Other long term (current) drug therapy
CPT/HCPCS: 45380; 88305; J2704

== ENCOUNTER 2024-04-02 07:53 | Outpatient (REF) | payer OTHER, SELFPAY ==
--- OUTSIDE RECORDS SUMMARY | 2024-04-02 07:56 | XMS_ITS ---
Author Organization [facility] Address [address] [place] [address] Care Team Providers Care Guard Driver Name Role Phone Reid Husain MD Primary Care Provider UnavailFavian Weeks Jr [phone] REASON FOR VISIT abdominal pain Encounters Encounter Location Date Provider Diagnosis [facility] [address] [place] [address] 10/21/2023 Favian Gonzalez Jr PLAN OF TREATMENT No Information
--- OUTSIDE RECORDS SUMMARY | 2024-04-02 07:56 | XMS_ITS ---
Author Organization [facility] Address [address] [place] [address] Care Team Providers Care Field Installer Name Role Phone Reid Husain MD Primary Care Provider UnavailFavian Weeks Jr REASON FOR VISIT pathology/ waiting on pt call back Encounters Encounter Location Date Provider Diagnosis [facility] [address] [place] [address] 03/16/2024 Favian Gonzalez Jr PLAN OF TREATMENT No Information
--- OUTSIDE RECORDS SUMMARY | 2024-04-02 07:56 | XMS_ITS ---
Author Organization [facility] Address [address] [place] [address] Care Team Providers Care Skin Drier Name Role Phone Reid Husain MD Primary Care Provider UnavailFavian Weeks Jr [phone] REASON FOR VISIT screening,fam hx colon cancer MEDICATIONS Medication SIG (Take, Route, Frequency, Duration) Notes Start Date End Date Status Simvastatin 20 MG TK 1 T PO ONCE A DAY Oral for 90 Active Irbesartan 150 MG TAKE 1 TABLET BY ARNOLD TH EVERY DAY Oral for 90 Active MiraLax (colon prep) 17 GM/SCOOP mixed with Gatorade or Crystal Light Orally begin at 5:00 p.m. the day before the procedure for 1 day 07/10/2023 Active Triamterene-HCTZ 37.5/25mg Active Avapro 150mg Active Zolpidem Tartrate 5 MG Oral for 30 Active Encounters Encounter Location Date Provider Diagnosis [facility] [place] [address] [place], [place] [phone] 03/10/2024 Favian Gonzalez Jr Colon cancer screening Z12.11 ; Colon polyps K63.5 and Family history of colon cancer Z80.0 ASSESSMENTS Encounter Date Diagnosis Assessment Notes Treatment Notes Treatment Clinical Notes 03/10/2024 Colon cancer screening (ICD-10 - Z12.11) 03/10/2024 Colon polyps (ICD-10 - K63.5) 03/10/2024 Family history of colon cancer (ICD-10 - Z80.0) PLAN OF TREATMENT No Information
--- OUTSIDE RECORDS SUMMARY | 2024-04-02 07:56 | XMS_ITS | Patient Health Record ---
Author Organization [facility] Address [address] [place] [address] Care Team Providers Care Pottery Kiln Builder Name Role Phone Reid Husain MD Primary Care Provider Favian Turner Jr Unavailable ALLERGIES No Known Allergies RESULTS Component Value Reference Range Notes Pathology Reviewed date:03/16/2024 04:46:08 PM Interpretation: Performing Lab:[facility], [address] [place] [id number] Notes/Report: REASON FOR REFERRAL No Information MEDICATIONS Medication SIG (Take, Route, Frequency, Duration) Notes Start Date End Date Status Simvastatin 20 MG TK 1 T PO ONCE A DAY Oral for 90 Active Zolpidem Tartrate 5 MG Oral for 30 Active Irbesartan 150 MG TAKE 1 TABLET BY ARNOLD TH EVERY DAY Oral for 90 Active MiraLax (colon prep) 17 GM/SCOOP mixed with Gatorade or Crystal Light Orally begin at 5:00 p.m. the day before the procedure for 1 day 07/10/2023 Active Triamterene-HCTZ 37.5/25mg Active Avapro 150mg Active IMMUNIZATIONS Vaccine Route Administration Date Status Comme nts Influenza Unknown 02/05/2023 Administered SOCIAL HISTORY Tobacco Use: Social History Observation Description Date Details (start date - stop date) Former Smoker NA - NA Sex Assigned At : Social History Observation Description Sex Assigned At Unknown Tobacco Use/Smoking Question Answer Notes Patient is a former smoker When did you stop smoking? age 23 How long has it been since you last smoked? 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) Active confirmed 50946217951086465 VITAL SIGNS Temperature 97.4 degrees Fahrenheit 07/10/2023 Blood pressure diastolic 00 mm Hg 07/10/2023 Height 64 in 07/10/2023 Blood pressure systolic 000 mm Hg 07/10/2023 Weight 242 lbs 07/10/2023 BMI 41.53 kg/m2 07/10/2023 Encounters Encounter Location Date Provider Diagnosis [facility] [place] [address] [place] [phone] 03/10/2024 Favian Gonzalez Jr Colon cancer screening Z12.11 ; Colon polyps K63.5 and Family history of colon cancer Z80.0 [facility] [address] [place] [address] 10/21/2023 Favian Gonzalez Jr [facility] [address] [place] [address] 07/10/2023 Favian Gonzalez Jr FH: colon cancer Z80.0 ; Generalized abdominal pain R10.84 and Colon cancer screening Z12.11 [facility] [address] [place] [address] 03/16/2024 Favian Gonzalez Jr ASSESSMENTS Encounter Date Diagnosis Assessment Notes Treatment Notes Treatment Clinical Notes 03/10/2024 Colon cancer screening (ICD-10 - Z12.11) 03/10/2024 Colon polyps (ICD-10 - K63.5) 07/10/2023 Generalized abdominal pain (ICD-10 - R10.84) 07/10/2023 FH: colon cancer (ICD-10 - Z80.0) 03/10/2024 Family history of colon cancer (ICD-10 - Z80.0) 07/10/2023 Colon cancer screening (ICD-10 - Z12.11) PLAN OF TREATMENT Future Test Test Name Order Date COLONOSCOPY 11/06/2018 COLONOSCOPY 07/10/2023 Insurance Providers Payer Name Payer Address Payer Phone Subscriber Number Group Number Insured Name Patient Relationship to Insured Coverage Start Date Coverage End Date [facility] [address] [place] [address] [id number] WOODROW NOVAK Self - patient is the insured MEDICAL (GENERAL) HISTORY Medical History History ICD Code hypertension Asthma, cold-induced Hyperlipidemia Prediabetes Surgical History Surgery Date(Month/Year) tonsillectomy hernia repair, umbilical 04/2017 hand surgery Back fusion
[2024-04-02 10:32] LABS: MANUAL DIFF FLAG NO
[2024-04-02 10:38] LABS: Basophils Absolute Auto 0.1 X10*3/uL (0.0-0.2); Basophils Percent Auto 0.9 % (0-2); Eosinophils Absolute Auto 0.3 X10*3/uL (0.0-0.4); Eosinophils Percent Auto 2.5 % (0-4); Hematocrit 43.5 % (37.0-47.0); Hemoglobin 14.5 g/dl (12.0-16.0); Imm Gran Abs Auto 0.04 X10*3/uL (0.00-0.03); Imm Gran Pct Auto 0.4 % (0.0-0.4); Lymphocytes Absolute Auto 2.9 X10*3/uL (1.2-4.9); Lymphocytes Percent Auto 28.9 % (20-40); Mean Corpuscular HGB Conc 33.3 g/dl (31.0-35.0); Mean Corpuscular Hemoglobin 29.5 pg (27.0-33.0); Mean Corpuscular Volume 88.4 fL (80.0-98.0); Mean Platelet Volume 10.2 fL (9.4-12.3); Monocytes Absolute Auto 0.7 X10*3/uL (0.1-1.2); Monocytes Percent Auto 7.5 % (2-11); Neutrophils Absolute Auto 5.9 x10*3/uL (2.0-8.3); Neutrophils Percent Auto 59.8 % (45-73); Platelet Count 289 X10*3/uL (160-400); Red Blood Count 4.92 X10*6/uL (4.20-5.50); Red Cell Distribution Width 12.9 % (11.0-16.0); White Blood Count 9.9 X10*3/uL (4.8-10.8)
[2024-04-02 10:43] LABS: Appearance Urine Cloudy; Color Urine Yellow; Estimated Average Glucose 146 mg/dL; Glucose Urine UA Negative (Negative); Hemoglobin A1C 185.2706 umol/L; Hemoglobin A1c % 6.7 % (<6.0); Leukocyte Esterase Urine Negative (Negative); Nitrite Urine Negative (Negative); PH 5.5 (5.0-9.0); Specific Gravity - Urine 1.025 (1.005-1.025); Total Hemoglobin (HGBA1C) 3688.6195 umol/L; UMIC TRIGGER UA YES; Urine Blood Trace (Negative); Urine Ketones Negative (Negative); Urine Protein Negative (Neg-Trace)
[2024-04-02 10:47] LABS: Bacteria Urine Trace (None Seen); Hyaline Casts Urine 0-2 /LPF (0-2); WBC Urine 0-5 /HPF (0-5)
[2024-04-02 11:04] LABS: Alanine Aminotransferase 26 U/L (0-31); Albumin Level 4.1 g/dL (3.5-5.0); Alkaline Phosphatase 94 U/L (39-117); Anion Gap 13 (12-20); Aspartate Amino Transferase 18 U/L (5-31); Bilirubin Total 0.8 mg/dL (0.0-1.0); Blood Urea Nitrogen 17 mg/dL (9-16); Calcium 8.9 mg/dL (8.4-10.2); Carbon Dioxide 31 mmol/L (22-29); Chloride 100 mmol/L (96-108); Cholesterol 186 mg/dL (<200); Estimated Glomerular Filt Rate > 60; Glucose Fasting 163 mg/dL (60-99); HDL Cholesterol 39 mg/dL (>40); LDL Cholesterol Calculated 110 mg/dL (<100); Potassium 4.1 mmol/L (3.3-5.1); Sodium 140 mmol/L (135-145); Total Protein 7.2 g/dL (6.5-8.0); Triglycerides 188 mg/dL (<150)
[2024-04-02 11:36] LABS: Creatinine Urine 138.13 mg/dL; Microalbum/Creatinine Ratio Ur 7.2 ug/mg cr (<30)
== END 2024-04-02 07:54 | disposition home or self-care (01) ==
LOC: HO.10HDL 07:53
PROVIDERS: Visit Provider Internal Medicine
DX: I10 Essential (primary) hypertension (principal); E11.9 Type 2 diabetes mellitus without complications; E78.00 Pure hypercholesterolemia, unspecified; J45.909 Unspecified asthma, uncomplicated
CPT/HCPCS: 36415; 80053; 80061; 81001; 82043; 82570; 83036; 84443; 85025

== ENCOUNTER 2024-06-03 08:58 | Outpatient (REF) | payer OTHER, SELFPAY ==
--- OUTSIDE RECORDS SUMMARY | 2024-06-03 09:08 | XMS_ITS ---
Author Organization [facility] Address [address] [place] [address] Care Team Providers Care Technology Coach Name Role Phone Reid Husain MD Primary Care Provider UnavailFavian Weeks Jr REASON FOR VISIT screening,fam hx colon [...] Active Encounters Encounter Location Date Provider Diagnosis [facility] [place] [address] [place], [place] [phone] 03/10/2024 Favian Gonzalez Jr Colon cancer screening [...]
--- OUTSIDE RECORDS SUMMARY | 2024-06-03 09:08 | XMS_ITS ---
Author Organization [facility] Address [address] [place] [address] Care Team Providers Care Records Technician Name Role Phone Reid Husain MD Primary Care Provider UnavailFavian Weeks Jr REASON FOR VISIT pathology/ waiting on pt call back Encounters Encounter Location Date Provider Diagnosis [facility] [address] [place] [address] 03/16/2024 Favian Gonzalez Jr PLAN OF TREATMENT No Information
--- OUTSIDE RECORDS SUMMARY | 2024-06-03 09:09 | XMS_ITS ---
Author Organization [facility] Address [address] [place] [address] Care Team Providers Care Worksite Wellness Practitioner Name Role Phone Reid Husain MD Primary Care Provider UnavailFavian Weeks Jr REASON FOR VISIT abdominal pain Encounters Encounter Location Date Provider Diagnosis [facility] [address] [place] [address] 10/21/2023 Favian Gonzalez Jr PLAN OF TREATMENT No Information
--- OUTSIDE RECORDS SUMMARY | 2024-06-03 09:09 | XMS_ITS | Patient Health Record ---
Author Organization [facility] Address [address] [place] [address] Care Team Providers Care Expense Clerk Name Role Phone Reid Husain MD Primary Care Provider Favian Turner Jr Unavailable [phone] ALLERGIES No Known Allergies RESULTS Component Value Reference Range Notes Pathology Reviewed date:03/16/2024 04:46:08 PM Interpretation: Performing Lab:[facility], [address] [place] [phone] Notes/Report: REASON FOR REFERRAL No Information MEDICATIONS [...] Problem Colon cancer screening (Z12.11) Active confirmed 415241857 Problem Encounter for other preprocedural examination (Z01.818) Active confirmed 552104440 Problem Generalized abdominal pain (R10.84) Active confirmed 864823861 Problem FH: colon cancer (Z80.0) Active confirmed 020987054 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 [place] [address] [place] [phone] 03/10/2024 Favian Gonzalez Jr Colon cancer screening Z12.11 ; Colon polyps K63.5 and Family history of colon cancer Z80.0 [facility] [address] [place] [address] 10/21/2023 Favian Gonzalez Jr [facility] [address] [place] [address] 07/10/2023 Favian Gonzalez Jr FH: colon cancer Z80.0 ; Generalized abdominal pain R10.84 and Colon cancer screening Z12.11 [facility] [address] [place] [phone] 03/16/2024 Favian Gonzalez Jr ASSESSMENTS Encounter Date [...] Insured Coverage Start Date Coverage End Date [facility] [address] [place] [address] [id number] WOODROW NOVAK Self - patient is the insured MEDICAL (GENERAL) HISTORY Medical History History ICD Code hypertension Asthma, cold-induced Hyperlipidemia Prediabetes Surgical History Surgery Date(Month/Year) tonsillectomy hernia repair, umbilical 04/2017 hand surgery Back fusion
[2024-06-03 10:26] LABS: Estimated Average Glucose 146 mg/dL; Hemoglobin A1C 183.2785 umol/L; Hemoglobin A1c % 6.7 % (<6.0); Total Hemoglobin (HGBA1C) 3672.1881 umol/L
[2024-06-03 10:34] LABS: Alanine Aminotransferase 25 U/L (0-31); Albumin Level 4.2 g/dL (3.5-5.0); Alkaline Phosphatase 93 U/L (39-117); Anion Gap 14 (12-20); Aspartate Amino Transferase 19 U/L (5-31); Bilirubin Total 0.7 mg/dL (0.0-1.0); Blood Urea Nitrogen 18 mg/dL (9-16); Calcium 9.4 mg/dL (8.4-10.2); Carbon Dioxide 29 mmol/L (22-29); Chloride 102 mmol/L (96-108); Estimated Glomerular Filt Rate > 60; Glucose Random 129 mg/dL (60-115); Potassium 4.5 mmol/L (3.3-5.1); Sodium 140 mmol/L (135-145); Total Protein 7.4 g/dL (6.5-8.0)
== END 2024-06-03 08:59 | disposition home or self-care (01) ==
LOC: HO.10HDL 08:58
PROVIDERS: Visit Provider Internal Medicine
DX: E11.9 Type 2 diabetes mellitus without complications (principal)
CPT/HCPCS: 36415; 80053; 83036

== ENCOUNTER 2024-06-22 13:53 | Outpatient (REF) | payer OTHER, SELFPAY ==
[2024-06-22 17:51] LABS: Appearance Urine Cloudy; Color Urine Yellow; Glucose Urine UA Negative (Negative); Leukocyte Esterase Urine Trace (Negative); Nitrite Urine Negative (Negative); PH 8.5 (5.0-9.0); UMIC TRIGGER UA YES; Urine Blood Negative (Negative); Urine Ketones Negative (Negative); Urine Protein Negative (Neg-Trace)
[2024-06-22 17:53] LABS: Bacteria Urine 1+ (None Seen); Hyaline Casts Urine 0-2 /LPF (0-2); RBC Urine 0-2 /HPF (0-2); WBC Urine 0-5 /HPF (0-5)
== END 2024-06-22 13:54 | disposition home or self-care (01) ==
LOC: HO.LAB 13:53
PROVIDERS: PCP Internal Medicine; Visit Provider Physician Assistant Medical
DX: R39.9 Unspecified symptoms and signs involving the genitourinary system (principal); E78.5 Hyperlipidemia, unspecified; E11.9 Type 2 diabetes mellitus without complications; I10 Essential (primary) hypertension; E66.813 Obesity, class 3; G47.00 Insomnia, unspecified; R31.29 Other microscopic hematuria
CPT/HCPCS: 81001; 81002; 87086; 96127

== ENCOUNTER 2024-06-22 13:53 | Outpatient (AMB) | payer OTHER, SELFPAY ==
[2024-06-22 14:01] VITALS: BP 136/82; PULSE 90; O2SAT 95; BMI 42.4
--- NOTE | 2024-06-22 14:01 | MHC.PC.OV ---
Vital Signs 06/22/24 14:01 Height 5 ft 4 in Weight 247 lb 4 oz BMI 42.4 BP 136/82 Blood Pressure Location Lt brachial Position Sitting Pulse 90 Pulse Source Pulse Oximeter Pulse Oximetry (%) 95 Oxygen Delivery Method Room Air Intake Visit Reasons: [employer] Allergies Ivory soap Allergy (Mild, Uncoded 06/22/24 14:05) rash, itching Tobacco use date assessed: 06/22/24 Dental Screening Dental Screen Date: 06/22/24 Did you have a dental visit in the last 12 months?: Yes Did you have a dental problem in the last 6 months where you did not have access to dental care?: No Was dental information given to patient?: Patient has dentist HPI HPI Comments History of Present Illness Details 63 year old female with Type II DM, HLD, HTN, OA of the knees and obesity presents to [facility]. She transferred from Dr. Husain due to his long-term. We reviewed her last labs. LDL is 110 with a goal of less than 100. She takes Simvastatin 5 mg daily. Recent hemoglobin a1c is 6.7%. She is off Metformin because she started Zepbound through [facility]. She pays out of pocket for it - 399 per month. Patient says her insurance doesn't have prescription drug coverage. She uses coupons for her other meds. She is on week 5 of Zepbound. No side effects. HTN is treated with Avapro and triamterene-HCTZ. Patient has colonscopy every 5 years due to family history. Last colonoscopy 03/10/[address] Gonzalez. She had a single polyp. 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 She is seen at [facility] for OA. She takes Celebrex. She receives Euflexxa injection. Insomnia is treated with Zolpidem as needed. She had microhematuria on labs from March. Denies gross hematuria. Nonsomker. Denies fam hx of bladder/renal cancer. She has a rescue inhaler, but she has not needed it for several years. ROS: Constitutional: No unexplained weight loss, fever, chills, fatigue or night sweats. Eyes: No vision changes, blurry vision Respiratory: No shortness of breath, cough or sputum production. Cardiovascular: No chest pain, chest pressure or chest discomfort. No palpitations or pedal edema. Gastrointestinal: No anorexia, nausea, vomiting or diarrhea. No abdominal pain or blood in stool. Genitourinary: No dysuria, hematuria, urinary frequency. Neurologic: No headache, dizziness, syncope Endocrine: No cold or heat intolerance. No polyuria or polydipsia. Psychiatric: No depression or anxiety. No SI/HI. Physical exam: Constitutional: Alert, in no distress. Neck: Supple, Full range of motion. No lymphadenopathy. Respiratory: Clear to auscultation. Cardiovascular: S1 S2 regular. No murmurs. Gastrointestinal: Abdomen soft, non-tender, non-distended. Normal bowel sounds. No palpable masses. Genitourinary: No costovertebral angle tenderness. Neurologic: No focal neurological deficits. Extremities: Warm and well perfused. No clubbing, cyanosis or edema. Psychiatric: Normal mood and affect [facility] Medical History (Updated 06/22/24 @ 22:45 by RAMÓN Paul) Microhematuria Insomnia Class 3 obesity Controlled type 2 diabetes mellitus Hyperlipidemia Essential hypertension Fibroid Lichen sclerosus Asthma High blood pressure High cholesterol Surgical History (Updated 06/22/24 @ 14:08 by Joanne Sethi CMA) History of back surgery H/O colonoscopy (2023) H/O umbilical hernia repair H/O hand surgery Hx of tonsillectomy Family History Mother Colon cancer Maternal Aunt Colon cancer Family/Other History of breast cancer Family/Other History of breast cancer Social History Housing: House Are you a primary child care center administrator to a significant other at home: No Do you presently have visiting nurse or other home services: No Alcohol intake: current Alcohol intake frequency: a few times a month Comment: medicated with po tylenol Patient Tobacco Use Status: Former Tobacco user Tobacco use type: Cigarette e-Cigarette/Vaping Use: Never Used service: No Current occupational status: employed and retired Sexual orientation: Straight/Heterosexual Gender identity: Female Cognitive needs: No Hearing needs: No Vision needs: Yes Female Reproductive History Menstrual Age of Menarche: 13 Questionnaire PHQ-9 Over the last 2 weeks, how often have you been bothered by any of the following problems? 1. Little interest or pleasure in doing things: not at all 2. Feeling down, depressed, or hopeless: not at all 3. Trouble falling or staying asleep, or sleeping too much: not at all 4. Feeling tired or having little energy: several days 5. Poor appetite or overeating: not at all 6. Feeling bad about yourself - or that you are a failure or have let yourself or your family down: not at all 7. Trouble concentrating on things, such as reading the newspaper or watching television: not at all 8. Moving or speaking so slowly that other people could have noticed. Or the opposite - being so fidgety or restless that you have been moving around a lot more than usual: not at all 9. Thoughts that you would be better off or of hurting yourself in some way: not at all Total score: 1 Depression Screening Interpretation: Negative Depression Screening Done: Yes 54928 - PHQ-9 Billing: Yes Source: Developed by Drs. González Lewis, Mirna Todd, Natanael Dutton and colleagues, with an educational alexandro from [employer]. Thrive Questionnaire Date Thrive assessed: 06/22/24 I am a: Patient What is your living situation today?: I have a steady place to live Within the past 12 months, did the food you bought not last and you didn't have the money to get more?: Never true Within the past 12 months, did you worry whether your food would run out before you got money to buy more?: Never true Do you have trouble paying for medicines?: No Do you have trouble getting transportation to medical appointments?: No Do you have trouble paying your heating and electricity bill?: No Do you have trouble taking care of your child, family member or friend?: No Do you have trouble with day-to-day activities such as bathing, preparing meals, shopping, managing finances, etc.?: No Are you currently unemployed and looking for a job?: No Are you interested in more education?: No Please select the resources that you would like help with: None Currently or been in a relationship where the following occur: No concerns reported THRIVE Score: 0 AUDIT C Alcohol Use Questionnaire (AUDIT-C) 1. How often do you have a drink containing alcohol?: 2-4 times a month 2. How many drinks containing alcohol do you have on a typical day when you are drinking?: 1 or 2 3. How often do you have six or more drinks on one occasion?: Never Total Score: 2 IVY-7 AMB Questionnaire IVY-7 Date IVY - 7 assessed: 06/22/24 Feeling nervous, anxious, or on edge: 1 = Several days Not being able to stop or control worryin = Several days Worrying too much about different things: 1 = Several days Trouble relaxin = Not at all Being so restless that it is hard to sit still: 0 = Not at all Becoming easily annoyed or irritable: 0 = Not at all Feeling afraid as if something awful might happen: 0 = Not at all Total IVY-7 score (0-4 normal; 5-9 mild; 10-14 moderate; 15-21 severe): 3 Source: Developed by Drs. González Lewis, Mirna Todd, Natanael Dutton and colleagues, with an educational alexandro from [employer]. IVY-7 Assessment Billing IVY-7 Assessment Tool: IVY-7 Assessment 14407 Physical exam (Primary Care) Vital Signs: Last Vital Signs Pulse 90 06/22/24 14:01 BP 136/82 06/22/24 14:01 Pulse Ox 95 06/22/24 14:01 Oxygen Delivery Method Room Air 06/22/24 14:01 BMI result Body Mass Index 42.4 Tobacco/Smoking Status: Tobacco use Status Tobacco use date assessed 06/22/24 06/22/24 14:09 Patient Tobacco Use Status Former Tobacco user 06/22/24 14:09 Tobacco use type Cigarette 06/22/24 14:09 e-Cigarette/Vaping Use Never Used 06/22/24 14:09 PHQ-9: PHQ-9 Score PHQ-9: Total score 1 06/22/24 14:15 Depression Screening Interpretation: Negative Thrive Assessment: Date of Thrive Assessment Date Thrive assessed 06/22/24 06/22/24 14:09 Currently or been in a relationship where the following occur: No concerns reported Results AMB Urinalysis Dipstick UR Leukocytes Trace Last Edit by Joanne Sethi CMA on 06/22/24 14:52 UR Nitrite Negative Last Edit by Joanne Sethi CMA on 06/22/24 14:52 UR Urobilinogen Normal Last Edit by Joanne Sethi CMA on 06/22/24 14:52 UR Protein Trace Last Edit by Joanne Sethi CMA on 06/22/24 14:52 UR Ph 8.0 Last Edit by Joanne Sethi CMA on 06/22/24 14:52 UR Blood Trace Last Edit by Joanne Sethi CMA on 06/22/24 14:52 UR Specific Hubertus 1.005 Last Edit by Joanne Sethi CMA on 06/22/24 14:52 UR Ketone Negative Last Edit by Joanne Sethi, ANDI on 06/22/24 14:52 UR Bilirubin Negative Last Edit by Joanne Sethi CMA on 06/22/24 14:52 UR Glucose Negative Last Edit by Joanne Sethi CMA on 06/22/24 14:52 Results Reviewed Results Reviewed: Laboratory Last Values Urine pH (Clinic) 8.0 06/22/24 14:51 Specific Hubertus (Clinic) 1.005 06/22/24 14:51 Ur Protein (Clinic) Trace 06/22/24 14:51 Ur Ketones (Clinic) Negative 06/22/24 14:51 Urine Blood (Clinic) Trace 06/22/24 14:51 Urine Nitrite Negative 06/22/24 14:51 Urine Bilirubin (Clinic) Negative 06/22/24 14:51 Urobilinogen (Clinic) Normal 06/22/24 14:51 Leukocyte Esterase (Clinic) Trace 06/22/24 14:51 Urine Glucose (Clinic) Negative 06/22/24 14:51 Coding Level of Care Code Est Pt Level 5 (21080) Complex EM visit Add On G2211 Diagnoses Hyperlipidemia E78.5 Essential hypertension I10 Controlled type 2 diabetes mellitus E11.9 Class 3 obesity E66.813 Insomnia G47.00 Microhematuria R31.29 Additional Codes IVY-7 Assessment Billing - IVY-7 Assessment Tool: IVY-7 Assessment 32504 ([id number]) PHQ-9 - 21989 - PHQ-9 Billing: Yes ([id number]) Time Spent (min) 46 Comment chart review, direct care, documenting Assessment & Plan Assessment & Plan (1) Hyperlipidemia: Code(s): E78.5 - Hyperlipidemia, unspecified Category: Medical Plan: LDL above goal. Reviewed diet and lifestyle modifications. She recently started GLP1 to promote weight loss. We will reevaluate at her next appt. To consider switching Simvastatin to Lipitor or Crestor. (2) Essential hypertension: Code(s): I10 - Essential (primary) hypertension Category: Medical Plan: BP suboptimal today which patient attributes to rushing to appointment and seeing a new provider. Continue regimen. Working on weight loss. Recommend low sodium diet. Reevaluate at follow up. (3) Controlled type 2 diabetes mellitus: Code(s): E11.9 - Type 2 diabetes mellitus without complications Category: Medical Plan: Continue Zepbound. She is planning to titrate this. She has a telehealth provider monthly with [employer] or [facility] for follow up. Discussed pathophysiology of Type II Diabetes Mellitus with the patient in detail.? I explained the rat exterminator risks and complications associated with uncontrolled diabetes including nephropathy, neuropathy, peripheral vascular disease, retinopathy, increased risk of heart disease and stroke.? Recommended annual eye exam. (4) Class 3 obesity: Code(s): E66.813 - Obesity, class 3 Category: Medical Plan: see plan above (5) Insomnia: Code(s): G47.00 - Insomnia, unspecified Category: Medical Plan: Will continue Zolpidem 5 mg prn. The patient is cautioned that the medication can cause sedation and drowsiness. They should not drive or operate heavy machinery when taking it. They are cautioned it is a controlled substance which is addictive. It must be taken as prescribed. They can not drink alcohol with this medication since doing so can cause respiratory suppression and increase risk of falls which may result in morbidity and mortality. (6) Microhematuria: Code(s): R31.29 - Other microscopic hematuria Category: Medical Plan: Recheck UA with culture. Plan Follow up in 3 months. Orders: Orders UA w Microscopic Today R39.9 - Unspecified symptoms and signs involving the genitourinary system Urine Culture Today R39.9 - Unspecified symptoms and signs involving the genitourinary system AMB Urinalysis Dipstick Today Z13.9 - Encounter for screening, unspecified Medications: New triamterene-hydrochlorothiazid 37.5-25 mg 1 cap PO BID 90 caps 3RF irbesartan (Avapro) 150 mg PO DAILY 90 tabs 3RF simvastatin 5 mg PO DAILY 90 tabs 3RF zolpidem 5 mg PO BEDTIME PRN 30 tabs 0RF Insomnia
--- OUTSIDE RECORDS SUMMARY | 2024-06-22 15:45 | XMS_ITS ---
Author Organization [facility] Address [address] [place] [address] Care Team Providers Care Film And Video Graphics Designer Name Role Phone Rodrigue AMBROSIO, Reid Primary Care Provider Favian Turner Jr REASON FOR VISIT abdominal pain Encounters Encounter Location Date Provider Diagnosis [facility] [address] [place] [address] 10/21/2023 Favian Gonzalez Jr Plan Of Treatment No Information Progress Notes * WOODROW NOVAK MDOB:1960 ( 63 yo F)Acc No.[id number]:10/21/2023 Progress Notes Patient:?WOODROW NOVAK Provider:?Favian Gonzalez MD :1960???Age:63 Y???Sex:Female D ate:10/21/2023 Address:[address] [facility] Pcp:Reid Husain MD Subjective: * Chief Complaints: * ???1. Abdominal pain. * Medical History:? Objective: * Vitals:? Assessment: Plan: * Treatment: * * The named appointment provid er may or may not be the originator of this progress note, and it is not deemed complete until electronically signed by the appointment provider. Sign off status: Pending * Provider:?Favian Gonzalez MD Date:?0 10/21/2023 Generated for Estella guevara/Emerson/eTransmitting on:?06/22/2024 03:45 PM EDT
--- OUTSIDE RECORDS SUMMARY | 2024-06-22 15:45 | XMS_ITS ---
Author Organization [facility] Address [address] [place] [address] Care Team Providers Care Batter Scaler Name Role Phone Reid Husain MD Primary Care Provider UnavailFavian Weeks Jr [phone] REASON FOR VISIT screening,fam hx colon [...] Encounters Encounter Location Date Provider Diagnosis [facility] Outpatient [address] [place] [phone] 03/10/2024 Favian Gonzalez Jr Colon cancer screening [...] WOODROW NOVAK MDOB:1960 ( 63 yo F)Acc No.[id number]:03/10/2024 COLON WITH MAC Patient:?WOODROW NOVAK Provider:?Favian Gonzalez MD :1960???Age:63 Y???Sex:Female D ate:03/10/2024 Address:[address] [facility] Pcp:Reid Husain MD Subjective: * Chief Complaints: * ???1. Screening,fam hx colon cancer. * Medical History:? * Medications:?Taking Triamter jose-HCTZ 37.5/25mg , Taking Avapro 150mg , Taking [...] the day before the procedure Objective: * Vitals:? Assessment: * Assessment: 1.?Colon cancer screening - Z12.11 (Primary)???2.?Colon polyps - K63.5???3.?Family history of colon cancer - Z80.0??? Plan: * Treatment: * Procedure Codes:?12353 COLON OSCOPY AND BIOPSY, 0529F INTRVL 3+YRS PTS CLNSCP DOCD * * The named appointment provid er may or may not be the originator of this progress note, and it is not deemed complete until electronically signed by the appointment provider. Sign off status: Pending * Provider:?Favian Gonzalez MD Date:?1 05/10/2023 Generated for Estella guevara/Emerson/Yvonneitting on:?06/22/2024 03:44 PM EDT
--- OUTSIDE RECORDS SUMMARY | 2024-06-22 15:45 | XMS_ITS ---
Author Organization [facility] Address [address] [place] [address] Care Team Providers Care Field Service Poultry Technician Name Role Phone Reid Husain MD Primary Care Provider Favian Turner Jr REASON FOR VISIT pathology/ waiting on pt call back Encounters Encounter Location Date Provider Diagnosis [facility] [address] [place] [address] 03/16/2024 Favian Gonzalez Jr Plan Of Treatment No Information Progress Notes * WOODROW NOVAK MDOB:1960 ( 63 yo F)Acc No.[id number]:03/16/2024 Patient:?WOODROW NOVAK :1960???Age:63 Y???Sex:Female Address:[place] [address] * true * Date:? Generated for Printi ismael/Emerson/eTransmitting on:?06/22/2024 03:45 PM EDT
--- OUTSIDE RECORDS SUMMARY | 2024-06-22 15:45 | XMS_ITS | Patient Health Record ---
Author Organization [facility] Address [address] [place] [address] Care Team Providers Care Commercial Correspondent Name Role Phone Reid Husain MD Primary Care Provider Favian Turner Jr Unavailable Allergies No Known Allergies Results Component Value Reference Range Notes Pathology Reviewed date:03/16/2024 04:46:08 PM Interpretation: Performing Lab:[facility], [address] [place] [id number] Notes/Report: Name: Woodrow Means Ag e/Sex: 63/F : 1960 Unit#: [id number] Attend Dr: Favian Gonzalez MD Re03/10/24 Status : [facility] Location: [facility] Disch: SPEC : [id number] RECD : 03/10/24 STATUS: SKYLAR CHICAS NUM: [id number] ELODIA: 03/10/24-[address]: Favian Gonzalez MD ENTERED: 03/10/24 SP TYPE: Surgical OTHR DR: Reid Husain MD ORDERED: HE Stain/3, Gross Micro L4 Diagnosis Colon, hepatic flexu re, polyp: Tubular adenoma; negative for high-grade dysplasia and carcinoma. Clinical History Pre-Op Dx: Hx malign ant neoplasm, screening Post-Op Dx: Colon polyp Microscopic Description Mltiple microscopic sections reviewed. Material Received Polyp hepatic flexure Gross Description Received in formalin labeled ?polyp hepatic flexure? are 2 bass irregular tissue fragments each measuring 0.25 cm, submitted in toto in a cassette labeled A. CEDS Copies To: Favian Gonzalez MD [facility] [address] [place] [address] [address] [place] [address] Reid Husain MD [facility] [address] [place] [address] Drive [address] [place] [address] Signed (si gnature on file) Aster Toñito 03/16/24 1135 END OF REPORT Reason For Referral No Information Medications Medication SIG (Take, Route, Frequency, Duration) [...] Active Triamterene-HCTZ 37.5/25mg Active Avapro 150mg Active Immunizations Vaccine Route Administration Date Status Comme nts Influenza Unknown 02/05/2023 Administered Social History Tobacco Use: Social History Observation Description Date Details (start date - stop date) Former Smoker NA - NA Tobacco Use/Smoking Question Answer Notes Patient is a former smoker When did you stop smoking? age 23 How long has it been since you last smoked? 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 (Z79.899) Active confirmed Vital Signs Temperature 97.4 degrees Fahrenheit 07/10/2023 Blood pressure diastolic 00 mm Hg 07/10/2023 Height 64 in 07/10/2023 Blood pressure systolic 000 mm Hg 07/10/2023 Weight 242 lbs 07/10/2023 BMI 41.53 kg/m2 07/10/2023 Encounters Encounter Location Date Provider Diagnosis [facility] Outpatient [address] [place], [place] [phone] 03/10/2024 Favian Gonzalez Jr Colon cancer screening Z12.11 ; Colon polyps K63.5 and Family history of colon cancer Z80.0 [facility] [address] [place] [address] 07/10/2023 Favian Gonzalez Jr FH: colon cancer Z80.0 ; Generalized abdominal pain R10.84 and Colon cancer screening Z12.11 [facility] [address] [place] [address] 03/16/2024 Favian Gonzalez Jr Assessments Encounter Date Diagnosis (ICD Code) Assessment Notes Treatment Notes Treatment Clinical Notes Section Notes 03/10/2024 Colon cancer screening (ICD-10 - Z12.11) 03/10/2024 Colon polyps (ICD-10 - K63.5) 07/10/2023 Generalized abdominal pain (ICD-10 - R10.84) We discussed her abdominal symptoms today. It is possible this was related to the medication and she will remain off this. If it recurs she'll let us know. Endoscopy could be necessary. We discussed colonoscopy today, including risks and benefits. She understands these and agrees to proceed. This will be arranged at her convenience. 07/10/2023 FH: colon cancer (ICD-10 - Z80.0) We discussed her abdominal symptoms today. It is possible this was related to the medication and she will remain off this. If it recurs she'll let us know. Endoscopy could be necessary. We discussed colonoscopy today, including risks and benefits. She understands these and agrees to proceed. This will be arranged at her convenience. 03/10/2024 Family history of colon cancer (ICD-10 - Z80.0) 07/10/2023 Colon cancer screening (ICD-10 - Z12.11) We discussed her abdominal symptoms today. It is possible this was related to the medication and she will remain off this. If it recurs she'll let us know. Endoscopy could be necessary. We discussed colonoscopy today, including risks and benefits. She understands these and agrees to proceed. This will be arranged at her convenience. Plan Of Treatment Future Test Test Name Order Date COLONOSCOPY 11/06/2018 COLONOSCOPY 07/10/2023 Insurance Providers Payer Name Payer Address Payer Phone Subscriber Number Group Number Insured Name Patient Relationship to Insured Coverage Start Date Coverage End Date [facility] [employer] [facility] [address] [place] [address] [id number] [employer]ROW MEANS Self - patient is the insured Medical (General) History Medical History History ICD Code hypertension Asthma, cold-induced Hyperlipidemia Prediabetes Surgical History Surgery Date(Month/Year) tonsillectomy hernia repair, umbilical 04/2017 hand surgery Back fusion
== END 2024-06-22 14:38 | disposition home or self-care (01) ==
PROVIDERS: PCP Internal Medicine; Visit Provider Physician Assistant Medical
DX: E78.5 Hyperlipidemia, unspecified (principal); I10 Essential (primary) hypertension; E11.9 Type 2 diabetes mellitus without complications; E66.813 Obesity, class 3; G47.00 Insomnia, unspecified; R31.29 Other microscopic hematuria; Z13.9 Encounter for screening, unspecified; Z68.41 Body mass index [BMI] 40.0-44.9, adult

== ENCOUNTER 2024-07-21 13:44 | Outpatient (AMB) | payer OTHER, SELFPAY ==
--- NOTE | 2024-07-21 13:46 | MHC.PC.OV ---
Vital Signs 07/21/24 13:59 Height 5 ft 4 in Weight 246 lb 2 oz BMI 42.2 BP 122/78 Blood Pressure Location Rt brachial Position Sitting Respiration 16 Pulse 77 Pulse Source Pulse Oximeter Temp 97.8 F Temp Source Oral Pulse Oximetry (%) 98 Oxygen Delivery Method Room Air Intake Visit Reasons: Breathing issue Intake Note: Ayesha presents in the office today for a blocked salivary gland on the left side of her mouth. Her last PCP usually prescribes Amoxicillian 500mg and it clears it up. Patient has taken 2 pills left over from last Rx. 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 Allergies Ivory soap Allergy (Mild, Uncoded 07/21/24 14:21) rash, itching Medication List - Last Reconciled 07/21/24 by Evelin Kohli CNP albuterol sulfate 90 mcg/actuation 90 mcg inhalation Q4H PRN celecoxib 200 mg PO BID fluocinonide 0.05% 1 appl topical .twice weekly irbesartan (Avapro) 150 mg PO DAILY simvastatin 20 mg PO BEDTIME tirzepatide 5 mg subcut QWEEK triamterene-hydrochlorothiazid 37.5-25 mg 1 cap PO BID zolpidem 5 mg PO BEDTIME PRN Tobacco use date assessed: 07/21/24 Dental Screening Dental Screen Date: 07/21/24 Did you have a dental visit in the last 12 months?: Yes Did you have a dental problem in the last 6 months where you did not have access to dental care?: No Was dental information given to patient?: Patient has dentist HPI HPI Comments History of Present Illness Details 64-year-old female presents with complaints of swelling to her left lower jaw which started last night. She notes associated discomfort with palpation to the area. She has h/o blocked salivary glands which responded well to Amoxicillin 500 mg twice daily. She took a dose of an old prescription of amoxicillin last night and this morning. No constitutional symptoms. [facility] Medical History (Updated 07/21/24 @ 14:42 by Evelin Kohli CNP) Microhematuria Insomnia Class 3 obesity Controlled type 2 diabetes mellitus Hyperlipidemia Essential hypertension Fibroid Lichen sclerosus Asthma High blood pressure High cholesterol Surgical History (Updated 06/22/24 @ 14:08 by Joanne Sethi CMA) History of back surgery H/O colonoscopy (2023) H/O umbilical hernia repair H/O hand surgery Hx of tonsillectomy Family History (Updated 07/21/24 @ 13:54 by Abbey Elise MA) Mother Colon cancer Maternal Aunt Colon cancer Family/Other History of breast cancer Family/Other History of breast cancer Social History (Updated 07/21/24 @ 13:54 by Abbey Elise MA) Housing: House Are you a primary patient care nursing assistant to a significant other at home: No Do you presently have visiting nurse or other home services: No Alcohol intake: current Alcohol intake frequency: a few times a month Comment: medicated with po tylenol Patient Tobacco Use Status: Former Tobacco user Tobacco use type: Cigarette e-Cigarette/Vaping Use: Never Used Second Hand Smoke Exposure: No Use of substances other than those prescribed or required for medical reasons: Yes Substance Use Type: Marijuana Substance Use Type Other:: Gummies Substance Use Frequency: Occasionally service: No Current occupational status: employed and retired Current occupational exposures/hazards: No Sexual orientation: Straight/Heterosexual Gender identity: Female Cognitive needs: No Hearing needs: No Vision needs: Yes Female Reproductive History Menstrual Age of Menarche: 13 Questionnaire PHQ-9 Over the last 2 weeks, how often have you been bothered by any of the following problems? 1. Little interest or pleasure in doing things: not at all 2. Feeling down, depressed, or hopeless: not at all 3. Trouble falling or staying asleep, or sleeping too much: not at all 4. Feeling tired or having little energy: not at all 5. Poor appetite or overeating: not at all 6. Feeling bad about yourself - or that you are a failure or have let yourself or your family down: not at all 7. Trouble concentrating on things, such as reading the newspaper or watching television: not at all 8. Moving or speaking so slowly that other people could have noticed. Or the opposite - being so fidgety or restless that you have been moving around a lot more than usual: not at all 9. Thoughts that you would be better off or of hurting yourself in some way: not at all Total score: 0 Depression Screening Interpretation: Negative Depression Screening Done: Yes 55340 - PHQ-9 Billing: Patient declined-do not bill Source: Developed by Drs. González Lewis, Mirna Natanael Wilkins and colleagues, with an educational alexandro from [employer]. Thrive Questionnaire Date Thrive assessed: 07/21/24 I am a: Patient What is your living situation today?: I have a steady place to live Within the past 12 months, did the food you bought not last and you didn't have the money to get more?: Never true Within the past 12 months, did you worry whether your food would run out before you got money to buy more?: Never true Do you have trouble paying for medicines?: No Do you have trouble getting transportation to medical appointments?: No Do you have trouble paying your heating and electricity bill?: No Do you have trouble taking care of your child, family member or friend?: No Do you have trouble with day-to-day activities such as bathing, preparing meals, shopping, managing finances, etc.?: No Are you currently unemployed and looking for a job?: No Are you interested in more education?: No Please select the resources that you would like help with: None Currently or been in a relationship where the following occur: No concerns reported THRIVE Score: 0 AUDIT C Alcohol Use Questionnaire (AUDIT-C) 1. How often do you have a drink containing alcohol?: Monthly or less 2. How many drinks containing alcohol do you have on a typical day when you are drinking?: 1 or 2 3. How often do you have six or more drinks on one occasion?: Never Total Score: 1 Score Reviewed/Action Taken: No IVY-7 AMB Questionnaire IVY-7 Date IVY - 7 assessed: 07/21/24 Feeling nervous, anxious, or on edge: 0 = Not at all Not being able to stop or control worryin = Not at all Worrying too much about different things: 1 = Several days Trouble relaxin = Not at all Being so restless that it is hard to sit still: 0 = Not at all Becoming easily annoyed or irritable: 0 = Not at all Feeling afraid as if something awful might happen: 0 = Not at all Total IVY-7 score (0-4 normal; 5-9 mild; 10-14 moderate; 15-21 severe): 1 Source: Developed by Drs. González Lewis, Natanael Medrano and colleagues, with an educational alexandro from [employer]. IVY-7 Assessment Billing IVY-7 Assessment Tool: IVY-7 Assessment 69287 ACT Questionnaire In the past 4 weeks, how much of the time did your asthma keep you from getting as much done at work, school or at home?: None of the time During the past 4 weeks, how often have you had shortness of breath?: Not at all During the past 4 weeks, how often did your asthma symptoms wake you up at night or earlier than usual in the morning?: Not at all During the past 4 weeks, how often have you had to use your rescue inhaler or nebulizer medication?: Not at all How would you rate your asthma control during the past 4 weeks?: Completely controlled ACT Interpretation: Negative Score: 25 Review of Systems Const Details: Const Denies chills, Denies fatigue, Denies fever(s), Denies headache(s) and Denies weakness ENT Plan as above Card Denies chest pain, Denies lightheadedness, Denies dyspnea and Denies other (Palpitations) Resp Denies cough, Denies dyspnea, Denies wheezing and Denies other ( shortness of breath) GI Denies abdominal pain, Denies melena, Denies hematochezia, Denies change in bowel habits, Denies dyspepsia and Denies nausea Denies hematuria and Denies dysuria Musc Denies abnormal gait, Denies myalgias, Denies arthralgias, Denies numbness and Denies tingling Skin/Breast Denies rash, Denies unusual bruising and Denies wounds Neuro Denies abnormal gait, Denies dizziness, Denies headache(s), Denies memory loss, Denies numbness, Denies Sensory deficit (Neuro), Denies tingling and Denies weakness Psych Denies anxiety, Denies depression, Denies memory loss Endo Denies cold intolerance, Denies fatigue, Denies heat intolerance, Denies polydipsia and Denies polyuria Aller/Immun Denies wheezing Physical exam (Primary Care) Vital Signs: Last Vital Signs Temp 97.8 F 07/21/24 13:59 Pulse 77 07/21/24 13:59 Resp 16 07/21/24 13:59 BP 122/78 07/21/24 13:59 Pulse Ox 98 07/21/24 13:59 Oxygen Delivery Method Room Air 07/21/24 13:59 BMI result Body Mass Index 42.2 Tobacco/Smoking Status: Tobacco use Status Tobacco use date assessed 07/21/24 07/21/24 14:03 Patient Tobacco Use Status Former Tobacco user 07/21/24 13:54 Tobacco use type Cigarette 07/21/24 13:54 e-Cigarette/Vaping Use Never Used 07/21/24 13:54 PHQ-9: PHQ-9 Score PHQ-9: Total score 0 07/21/24 14:03 Depression Screening Interpretation: Negative Thrive Assessment: Date of Thrive Assessment Date Thrive assessed 07/21/24 07/21/24 14:03 Currently or been in a relationship where the following occur: No concerns reported Const Other: General: no acute distress and well developed Nutritional Appearance: well nourished Orientation/consciousness: patient oriented x3 HENMT Head is normocephalic Bilateral ear canal and TM are normal Nasal turbinates and oropharynx are pink and moist Sinuses are nontender with palpation No auricular or cervical lymphadenopathy Tenderness to palpation and mild edema of the left mandible below the left ear, No erythema or overt infection noted Eyes General: appearance normal, both eyes and all related structures Pupils: Equal, round and reactive pupils present EOM: EOMs intact bilaterally Resp Effort & Inspection: normal respiratory effort Auscultation: clear to auscultation bilaterally Cardio Rate: regular rate Rhythm: regular rhythm Heart sounds: S1 normal heart sound present, S2 normal heart sound present, no gallops, no murmurs and no rubs GI Palpation (GI): No Abdominal aortic bruit present, Soft to palpation, nontender, No hepatosplenomegaly present and No Rebound tenderness present Auscultation: normal bowel sounds General: Yes no CVA tenderness Back/Spine/Pelvis Back: no CVA tenderness Cervical Spine: cervical ROM normal and No Cervical spine tenderness Thoracic/Lumbar Spine: thoraco-lumbar ROM normal, No pain with thoraco-lumbar ROM, No thoracic spinal tenderness and No lumbar spinal tenderness Extrem General: Yes normal to inspection, No edema and No calf tenderness Skin General: warm and dry. Normal skin color. Normal skin turgor Neuro General: patient oriented x3, gait normal and no focal neuro deficit Cranial nerves: Yes Equal, round and reactive pupils present Cognition (Neuro): normal cognition Gait exam (Neuro): Normal gait present Sensory Exam: No Sensory deficit (Neuro) Psych Appearance: grossly normal Affect: normal affect Attitude: cooperative Thought process: Normal thought process present Coding Level of Care Code Est Pt Level 3 (65082) Diagnoses Salivary gland swelling R60.0 Additional Codes Asthma Control Questionnaire - ACT Interpretation: Negative ([id number]) IVY-7 Assessment Billing - IVY-7 Assessment Tool: IVY-7 Assessment 31717 ([id number]) Assessment & Plan Assessment & Plan (1) Salivary gland swelling: Code(s): R60.0 - Localized edema Category: Medical Plan: Patient presents with complaints of swelling to her left lower jaw which started last night. She notes associated discomfort with palpation to the area. She has h/o blocked salivary glands which responded well to Amoxicillin 500 mg twice daily. She took a dose of an old prescription of amoxicillin last night and this morning. No constitutional symptoms. Tenderness to palpation and mild edema of the left mandible below the left ear, No erythema or overt infection noted. Likely inflammation of the left parotid gland. Amoxicillin 100 mg twice daily for 7 days ordered; advised to take as prescribed. May take Tylenol ibuprofen for pain or discomfort. Warm/cool compresses encouraged. Follow-up with worsening or new signs and symptoms. Verbalized understanding and agreed with treatment plan. Medications: New amoxicillin 500 mg PO BID 7 days 14 tabs 0RF
[2024-07-21 13:59] VITALS: BP 122/78; PULSE 77; RESP 16; TEMP 36.6; O2SAT 98; BMI 42.2
--- OUTSIDE RECORDS SUMMARY | 2024-07-21 16:44 | XMS_ITS ---
Author Organization [facility] Address [address] [place] [address] Care Team Providers Care In Flight Refueling Manager Name Role Phone Reid Husain MD Primary Care Provider Favian Turner Jr REASON FOR VISIT pathology/ waiting on pt call back Encounters Encounter Location Date Provider Diagnosis [facility] [address] [place] [address] 03/16/2024 Favian Gonzalez Jr Plan Of Treatment No Information Progress Notes * WOODROW NOVAK MDOB:1960 ( 63 yo F)Acc No.[id number]:03/16/2024 Patient:?WOODROW NOVAK :1960???Age:63 Y???Sex:Female Address:[place] [address] * true * Date:? Generated for Printi ismael/Emerson/eTransmitting on:?07/21/2024 04:44 PM EDT
--- OUTSIDE RECORDS SUMMARY | 2024-07-21 16:44 | XMS_ITS ---
Author Organization [facility] Address [address] [place] [address] Care Team Providers Care Animal Husbandry Teacher Name Role Phone Reid Husain MD Primary Care Provider UnavailFavian Weeks Jr [phone] REASON FOR VISIT screening,fam hx colon cancer [...] Active Encounters Encounter Location Date Provider Diagnosis [facility] Outpatient [address] [place] [phone] 03/10/2024 Favian Gonzalez Jr Colon cancer screening [...] WOODROW NOVAK MDOB:1960 ( 64 yo F)Acc No.[id number]:03/10/2024 COLON WITH MAC Patient:?WOODROW NOVAK Provider:?Favian Gonzalez MD :1960???Age:63 Y???Sex:Female D ate:03/10/2024 Address:[address] [place], [facility] Pcp:Reid Husain MD Subjective: * Chief Complaints: [...] - Z80.0??? Plan: * Treatment: * Procedure Codes:?58460 COLON OSCOPY AND BIOPSY, 0529F INTRVL 3+YRS PTS CLNSCP DOCD * * The named appointment provid er may or may not be the originator of this progress note, and it is not deemed complete until electronically signed by the appointment provider. Sign off status: Pending * Provider:?Favian Gonzalez MD Date:?1 05/10/2023 Generated for Estella guevara/Emerson/Yvonneitting on:?07/21/2024 04:44 PM EDT
--- OUTSIDE RECORDS SUMMARY | 2024-07-21 16:45 | XMS_ITS ---
Author Organization [facility] Address [address] [facility] [place] [address] Care Team Providers Care Artist Color Separation Name Role Phone Rodrigue AMBROSIO, Reid Primary Care Provider Favian Turner Jr REASON FOR VISIT abdominal pain Encounters Encounter Location Date Provider Diagnosis [facility] [address] [facility] [place] [address] 10/21/2023 Favian Gonzalez Jr Plan Of Treatment No Information Progress Notes * WOODROW NOVAK MDOB:1960 ( 64 yo F)Acc No.[id number]:10/21/2023 Progress Notes Patient:?WOODROW NOVAK Provider:?Favian Gonzalez MD :1960???Age:63 Y???Sex:Female D ate:10/21/2023 Address:[address] [id number] Pcp:Reid Husain MD Subjective: * Chief Complaints: [...] MD Date:?0 10/21/2023 Generated for Estella guevara/Emerson/eTransmitting on:?07/21/2024 04:44 PM EDT
--- OUTSIDE RECORDS SUMMARY | 2024-07-21 16:45 | XMS_ITS | Patient Health Record ---
Author Organization [facility] Address [address] [place] [address] Care Team Providers Care Office Lead Name Role Phone Reid Husain MD Primary Care Provider Favian Turner Jr Unavailable Allergies No Known Allergies Results Component Value Reference Range Notes Pathology Reviewed date:03/16/2024 04:46:08 PM Interpretation: Performing Lab:[facility], [address] [place] [id number] Notes/Report: Name: Woodrow Means Ag e/Sex: 63/F : 1960 Unit#: [id number] Attend Dr: Favian Gonazlez MD Re03/10/24 Status : [facility] Location: [facility] Disch: SPEC : [id number] RECD : 03/10/24 STATUS: SKYLAR CHICAS NUM: [id number] ELODIA: 03/10/24-[address]: Favian Gonzalez MD [...] A. CEDS Copies To: Favian Gonzalez MD [facility] [address] [place] [address] [address] [place] [address] Reid Husain MD [facility] [address] [place] [address] [address] [place] [address] Signed (si gnature on file) Aster [place] 03/16/24 1135 END OF REPORT Reason For [...] Problem Status W/U Status Risk Notes Problem 531871129 Colon cancer screening (Z12.11) Active confirmed Problem 458419044 Encounter for other preprocedural examination (Z01.818) Active confirmed Problem 458885781 Generalized abdominal pain (R10.84) Active confirmed Problem 128356168 FH: colon cancer (Z80.0) Active confirmed Problem [id number] 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 (Z79.899) Active confirmed Encounters Encounter Location Date Provider Diagnosis [facility] Outpatient [address] [id number] 03/10/2024 Favian Gonzalez Jr Colon cancer screening Z12.11 ; Colon polyps K63.5 and Family history of colon cancer Z80.0 [facility] [address] [place] [address] 03/16/2024 Favian Gonzalez Jr Assessments Encounter Date Diagnosis (ICD Code) Assessment Notes Treatment Notes Treatment Clinical Notes Section Notes 03/10/2024 Colon cancer screening (ICD-10 - Z12.11) 03/10/2024 Colon polyps (ICD-10 - K63.5) 03/10/2024 Family history of colon cancer (ICD-10 - Z80.0) Plan Of Treatment Future Test Test Name Order Date COLONOSCOPY 11/06/2018 COLONOSCOPY 07/10/2023 Insurance Providers Payer Name Payer Address Payer Phone Subscriber Number Group Number Insured Name Patient Relationship to Insured Coverage Start Date Coverage End Date [facility] [address] [place] [address] [id number] WOODROW MEANS Self - patient is the insured Medical (General) History Medical History History ICD Code hypertension Asthma, cold-induced Hyperlipidemia Prediabetes Surgical History Surgery Date(Month/Year) tonsillectomy hernia repair, umbilical 04/2017 hand surgery Back fusion
== END 2024-07-21 14:38 | disposition home or self-care (01) ==
LOC: HO.HMCFM 13:45
PROVIDERS: PCP Internal Medicine; Visit Provider Nurse Practitioner Family
DX: R60.0 Localized edema (principal)

== ENCOUNTER → 2024-07-21 13:44 | Outpatient (BNVA) | payer OTHER, SELFPAY | PROVIDERS: PCP Internal Medicine; Visit Provider Nurse Practitioner Family | DX: R60.0 Localized edema (principal); J45.909 Unspecified asthma, uncomplicated | CPT/HCPCS: 96127; 96160 ==

== ENCOUNTER 2024-09-28 08:55 | Outpatient (AMB) | payer OTHER, SELFPAY ==
--- NOTE | 2024-09-28 09:02 | A.OFFPC_ITS ---
Vital Signs 09/28/24 09:10 Height 5 ft 4 in Weight 243 lb BMI 41.7 BP 118/78 Blood Pressure Location Rt brachial Position Sitting Pulse 90 Pulse Source Palpation Temp 98.6 F Temp Source Temporal Artery Scan Pulse Oximetry (%) 95 Oxygen Delivery Method Room Air Intake Visit Reasons: med/lab review Intake Note: Ayesha presents in the office today for a medication check in and a lab review. Patient needs a refill of the Zolpidem. Allergies Ivory soap Allergy (Mild, Uncoded 09/28/24 09:06) rash, itching Tobacco use date assessed: 09/28/24 Dental Screening Dental Screen Date: 09/28/24 Did you have a dental visit in the last 12 months?: Yes Did you have a dental problem in the last 6 months where you did not have access to dental care?: No Was dental information given to patient?: Patient has dentist HPI HPI Comments History of Present Illness Details 64 year old female with Type II DM, HLD, HTN, OA of the knees and obesity presents for follow up. Hyperlipidemia-taking simvastatin 20 mg daily. Last LDL 110 with a goal of less than 100. She is going to repeat labs today. Type 2 diabetes-Recent hemoglobin a1c is 6.2% down from 6.7%. She is off Metformin because she started Zepbound through [facility]. She pays out of pocket for it - 399 per month. Patient says her insurance doesn't have prescription drug coverage. She uses coupons for her other meds. She was just titrated up to 10 mg weekly. Denies side effects. She hope she will lose more weight on the higher dosage. Hypertension-treated with your irbesartan and triamterene-hydrochlorothiazide. Her blood pressure is well-controlled. She has colonoscopies every 5 years due to her family history. Last colonoscopy 03/10/[address] Gonzalez. She had a single polyp. She is up to date with mammogram and annual [employer] appointments. She is seen at [facility] for OA. She takes Celebrex. She received a Euflexxa injection. Insomnia is treated with Zolpidem as needed. She had trace blood on urinalysis in March 2024. Lab urinalysis was negative for this on 06/22/2024 and today. She denies gross hematuria, frequency, dysuria. She is a nonsmoker. Denies family history of bladder/renal cancer. She has a rescue inhaler, but she has not needed it for several years. ROS: Constitutional: No unexplained weight loss, fever, chills, fatigue or night sweats. Eyes: No vision changes, blurry vision Respiratory: No shortness of breath, cough or sputum production. Cardiovascular: No chest pain, chest pressure or chest discomfort. No palpitations or pedal edema. Gastrointestinal: No anorexia, nausea, vomiting or diarrhea. No abdominal pain or blood in stool. Genitourinary: No dysuria, hematuria, urinary frequency. Neurologic: No headache, dizziness, syncope Endocrine: No cold or heat intolerance. No polyuria or polydipsia. Psychiatric: No depression or anxiety. Physical exam: Constitutional: Alert, in no distress. Neck: Supple, Full range of motion. No lymphadenopathy. Respiratory: Clear to auscultation. Cardiovascular: S1 S2 regular. No murmurs. Gastrointestinal: Abdomen soft, non-tender, non-distended. Normal bowel sounds. No palpable masses. Neurologic: No focal neurological deficits. Extremities: Warm and well perfused. No clubbing, cyanosis or edema. Psychiatric: Normal mood and affect [facility] Medical History (Updated 09/29/24 @ 08:44 by RAMÓN Paul) Microhematuria Insomnia Class 3 obesity Controlled type 2 diabetes mellitus Hyperlipidemia Essential hypertension Fibroid Lichen sclerosus Asthma High blood pressure High cholesterol Surgical History (Updated 06/22/24 @ 14:08 by Joanne Sethi CMA) History of back surgery H/O colonoscopy (2023) H/O umbilical hernia repair H/O hand surgery Hx of tonsillectomy Family History Mother Colon cancer Maternal Aunt Colon cancer Family/Other History of breast cancer Family/Other History of breast cancer Social History (Updated 09/28/24 @ 09:09 by Abbey Elise MA) Housing: House Are you a primary foster care therapist to a significant other at home: No Do you presently have visiting nurse or other home services: No Alcohol intake: current Alcohol intake frequency: a few times a month Comment: medicated with po tylenol Patient Tobacco Use Status: Former Tobacco user Tobacco use type: Cigarette e-Cigarette/Vaping Use: Never Used Second Hand Smoke Exposure: No Substance Use Type: Marijuana service: No Current occupational status: employed and retired Current occupational exposures/hazards: No Sexual orientation: Straight/Heterosexual Gender identity: Female Cognitive needs: No Hearing needs: No Vision needs: Yes Female Reproductive History Menstrual Age of Menarche: 13 Questionnaire Thrive Questionnaire Date Thrive assessed: 09/28/24 I am a: Patient What is your living situation today?: I have a steady place to live Within the past 12 months, did the food you bought not last and you didn't have the money to get more?: Never true Within the past 12 months, did you worry whether your food would run out before you got money to buy more?: Never true Do you have trouble paying for medicines?: No Do you have trouble getting transportation to medical appointments?: No Do you have trouble paying your heating and electricity bill?: No Do you have trouble taking care of your child, family member or friend?: No Do you have trouble with day-to-day activities such as bathing, preparing meals, shopping, managing finances, etc.?: No Are you currently unemployed and looking for a job?: No Are you interested in more education?: No Please select the resources that you would like help with: None Currently or been in a relationship where the following occur: No concerns reported THRIVE Score: 0 AUDIT C Alcohol Use Questionnaire (AUDIT-C) 1. How often do you have a drink containing alcohol?: Monthly or less 2. How many drinks containing alcohol do you have on a typical day when you are drinking?: 1 or 2 Total Score: 1 IVY-7 AMB Questionnaire IVY-7 Date IVY - 7 assessed: 07/21/24 Source: Developed by Drs. González Lewis, Mirna Todd, Natanael Dutton and colleagues, with an educational alexandro from [employer]. Physical exam (Primary Care) Vital Signs: Last Vital Signs Temp 98.6 F 09/28/24 09:10 Pulse 90 09/28/24 09:10 BP 118/78 09/28/24 09:10 Pulse Ox 95 09/28/24 09:10 Oxygen Delivery Method Room Air 09/28/24 09:10 BMI result Body Mass Index 41.7 Tobacco/Smoking Status: Tobacco use Status Tobacco use date assessed 09/28/24 09/28/24 09:09 Patient Tobacco Use Status Former Tobacco user 09/28/24 09:09 Tobacco use type Cigarette 09/28/24 09:09 e-Cigarette/Vaping Use Never Used 09/28/24 09:09 Thrive Assessment: Date of Thrive Assessment Date Thrive assessed 09/28/24 09/28/24 09:14 Currently or been in a relationship where the following occur: No concerns reported Coding Level of Care Code Est Pt Level 4 (48074) Complex EM visit Add On G2211 Diagnoses Pure hypercholesterolemia E78.00 Hyperlipidemia type: pure hypercholesterolemia Essential hypertension I10 Controlled type 2 diabetes mellitus E11.9 Class 3 obesity E66.813 Insomnia G47.00 Microhematuria R31.29 Assessment & Plan Assessment & Plan (1) Hyperlipidemia: Code(s): E78.5 - Hyperlipidemia, unspecified Category: Medical Qualifiers: Hyperlipidemia type: pure hypercholesterolemia Qualified Code(s): E78.00 - Pure hypercholesterolemia, unspecified Plan: LDL at goal. Continue simvastatin. Continue lifestyle modifications. (2) Essential hypertension: Code(s): I10 - Essential (primary) hypertension Category: Medical Plan: Well-controlled. Recommended low-sodium diet and avoidance of caffeine. Continue current medications. (3) Controlled type 2 diabetes mellitus: Code(s): E11.9 - Type 2 diabetes mellitus without complications Category: Medical Plan: Continue Zepbound. Diabetes is well-controlled. Continue annual eye exams. Discussed pathophysiology of Type II Diabetes Mellitus with the patient in detail.? I explained the ad terminal makeup operator risks and complications associated with uncontrolled diabetes including nephropathy, neuropathy, peripheral vascular disease, retinopathy, increased risk of heart disease and stroke.? (4) Class 3 obesity: Code(s): E66.813 - Obesity, class 3 Category: Medical Plan: see plan above (5) Insomnia: Code(s): G47.00 - Insomnia, unspecified Category: Medical Plan: Will continue Zolpidem 5 mg prn. The patient is cautioned that the medication can cause sedation and drowsiness. They should not drive or operate heavy machinery when taking it. They are cautioned it is a controlled substance which is addictive. It must be taken as prescribed. They can not drink alcohol with t his medication since doing so can cause respiratory suppression and increase risk of falls which may result in morbidity and mortality. (6) Microhematuria: Code(s): R31.29 - Other microscopic hematuria Category: Medical Plan: Trace blood on 1 prior urinalysis. Subsequent urinalysis x2 negative for hematuria. We will continue to monitor, if she develops genitourinary symptoms or recurrence of hematuria I will refer her to Urology. Plan Follow up for annual physical exam in January. Medications: Refilled zolpidem 5 mg PO BEDTIME PRN 30 tabs 0RF Insomnia
[2024-09-28 09:10] VITALS: BP 118/78; PULSE 90; TEMP 37; O2SAT 95; BMI 41.7
--- OUTSIDE RECORDS SUMMARY | 2024-09-28 09:25 | XMS_ITS ---
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 Plan: * Treatment: * Procedure Codes:?73764 COLON OSCOPY AND BIOPSY, 0529F INTRVL 3+YRS PTS CLNSCP DOCD * * The named appointment provid er may or may not be the originator of this progress note, and it is not deemed complete until electronically signed by the appointment provider. Sign off status: Pending * Provider:?Favian Gonzalez MD Date:?1 05/10/2023 Generated for Estella guevara/Emerson/Yvonneitting on:?09/28/2024 09:24 AM EDT
== END 2024-09-28 09:36 | disposition home or self-care (01) ==
LOC: HO.HMCFM 08:56
PROVIDERS: PCP Physician Assistant Medical; Visit Provider Internal Medicine
DX: E78.00 Pure hypercholesterolemia, unspecified (principal); E11.9 Type 2 diabetes mellitus without complications; E66.813 Obesity, class 3; Z68.41 Body mass index [BMI] 40.0-44.9, adult; I10 Essential (primary) hypertension; G47.00 Insomnia, unspecified; R31.29 Other microscopic hematuria

== ENCOUNTER → 2024-09-28 08:55 | Outpatient (BNVA) | payer OTHER, SELFPAY | PROVIDERS: PCP Physician Assistant Medical; Visit Provider Internal Medicine ==

== ENCOUNTER 2024-09-28 10:04 | Outpatient (REF) | payer OTHER, SELFPAY ==
[2024-09-28 11:33] LABS: Estimated Average Glucose 131 mg/dL; Hemoglobin A1c % 6.2 % (<6.0)
[2024-09-28 11:59] LABS: Anion Gap 12 (12-20); Blood Urea Nitrogen 15 mg/dL (9-16); Calcium 9.6 mg/dL (8.4-10.2); Carbon Dioxide 30 mmol/L (22-29); Chloride 101 mmol/L (96-108); Cholesterol 155 mg/dL (<200); Estimated Glomerular Filt Rate > 60; Glucose Random 102 mg/dL (60-115); HDL Cholesterol 33 mg/dL (>40); LDL Cholesterol Calculated 88 mg/dL (<100); Potassium 3.6 mmol/L (3.3-5.1); Sodium 139 mmol/L (135-145); Triglycerides 171 mg/dL (<150)
[2024-09-28 14:21] LABS: Appearance Urine Clear; Color Urine Yellow; Glucose Urine UA Negative (Negative); Leukocyte Esterase Urine Trace (Negative); Nitrite Urine Negative (Negative); PH 7.5 (5.0-9.0); Specific Gravity - Urine 1.015 (1.005-1.025); UMIC TRIGGER UA YES; Urine Blood Negative (Negative); Urine Ketones Negative (Negative); Urine Protein Negative (Neg-Trace)
[2024-09-28 14:33] LABS: Bacteria Urine Trace (None Seen); Hyaline Casts Urine 0-2 /LPF (0-2); RBC Urine 0-2 /HPF (0-2); WBC Urine 0-5 /HPF (0-5)
== END 2024-09-28 10:05 | disposition home or self-care (01) ==
LOC: HO.WFDLDS 10:04
PROVIDERS: Visit Provider Physician Assistant Medical
DX: E11.9 Type 2 diabetes mellitus without complications (principal); R39.9 Unspecified symptoms and signs involving the genitourinary system; E78.5 Hyperlipidemia, unspecified; R31.29 Other microscopic hematuria
CPT/HCPCS: 36415; 80048; 80061; 81001; 83036; 87086

== ENCOUNTER 2025-02-11 08:19 | Outpatient (REF) | payer OTHER, SELFPAY ==
[2025-02-11 11:26] LABS: Hematocrit 44.6 % (37.0-47.0); Hemoglobin 14.5 g/dl (12.0-16.0); Mean Corpuscular HGB Conc 32.5 g/dl (31.0-35.0); Mean Corpuscular Hemoglobin 29.6 pg (27.0-33.0); Mean Corpuscular Volume 91.0 fL (80.0-98.0); NRBC Abs Auto 0.000 X10*3/uL (0.0-0.012); NRBC Pct Auto 0.0 /100WBC (0.0-0.2); Platelet Count 334 X10*3/uL (160-400); Red Blood Count 4.90 X10*6/uL (4.20-5.50); White Blood Count 9.2 X10*3/uL (4.8-10.8)
[2025-02-11 11:56] LABS: Appearance Urine Clear; Glucose Urine UA Negative (Negative); PH 6.0 (5.0-9.0); Specific Gravity - Urine 1.025 (1.005-1.025); UMIC TRIGGER UA YES
[2025-02-11 12:00] LABS: Alanine Aminotransferase 32 U/L (0-31); Albumin Level 4.5 g/dL (3.5-5.0); Alkaline Phosphatase 92 U/L (39-117); Anion Gap 12 (12-20); Aspartate Amino Transferase 27 U/L (5-31); Blood Urea Nitrogen 17 mg/dL (9-16); Calcium 9.3 mg/dL (8.4-10.2); Carbon Dioxide 31 mmol/L (22-29); Chloride 101 mmol/L (96-108); Cholesterol 165 mg/dL (<200); Estimated Glomerular Filt Rate > 60; HDL Cholesterol 38 mg/dL (>40); Potassium 4.1 mmol/L (3.3-5.1); Sodium 140 mmol/L (135-145); Total Protein 7.2 g/dL (6.5-8.0); Triglycerides 185 mg/dL (<150)
[2025-02-11 12:31] LABS: Microalbum/Creatinine Ratio Ur 4.5 ug/mg cr (<30)
== END 2025-02-11 08:20 | disposition home or self-care (01) ==
LOC: HO.WFDLDS 08:19
PROVIDERS: PCP Physician Assistant Medical; Visit Provider Physician Assistant Medical
DX: Z00.00 Encounter for general adult medical examination without abnormal findings (principal); Z23 Encounter for immunization; I10 Essential (primary) hypertension; E78.00 Pure hypercholesterolemia, unspecified; R31.29 Other microscopic hematuria; E78.5 Hyperlipidemia, unspecified; E11.65 Type 2 diabetes mellitus with hyperglycemia; E66.813 Obesity, class 3; G47.00 Insomnia, unspecified; Z68.41 Body mass index [BMI] 40.0-44.9, adult; Z79.899 Other long term (current) drug therapy
CPT/HCPCS: 36415; 80053; 80061; 81001; 82043; 82570; 83036; 85027; 87086; 90471; 90656; 96127; 99396

== ENCOUNTER 2025-02-11 08:19 | Outpatient (AMB) | payer OTHER, SELFPAY ==
--- OUTSIDE RECORDS SUMMARY | 2023-10-21 07:20 | XMS_ITS ---
Author Organization [facility] Address [address] [facility] [place] [address] Care Team Providers Care [employer] [facility] Lab Technician Name Role Phone Rodrigue (RETIRED) Reid AMBROSIO Primary Care Provide r Favian Lee Jr [phone] REASON FOR VISIT abdominal pain Encounters Encounter Location Date Provider Diagnosis [facility] [address] [facility] [place] [address] 10/21/2023 Favian Gonzalez Jr Plan Of Treatment No Information Progress Notes * WOODROW NOVAK MDOB:1960 ( 64 yo F)Acc No.[id number]:10/21/2023 Progress Notes Patient: WOODROW KOO Provider: Bridger Gonzalez MD :1960 A ge:63 Y S ex:Female Date:10/21/2023 Address:[address] [place] Pcp:Reid Husain (RETIRED )MD Subjective: * Chief Complaints: * 1 . Abdominal pain. * Medical History: Objective: * Vitals: Assessment: Plan: * Treatment: * * The named appointment provid er may or may not be the originator of this progress note, and it is not deemed complete until electronically signed by the appointment provider. Sign off status: Pending * Provider: Bridger Gonzalez MD Date: 0 10/21/2023 Generated for Printi ng/Faxing/eTransmitting on: 1 08:55 AM EDT
--- OUTSIDE RECORDS SUMMARY | 2024-03-10 03:30 | XMS_ITS ---
Author Organization [facility] Address [address] [place] [address] Care Team Providers Care License Examiner Name Role Phone Rodrigue (RETIRED) Reid AMBROSIO Primary Care Provide r Favian Lee Jr [phone] REASON FOR VISIT screening,fam hx colon cancer Medications Medication SIG (Take, Route, Frequency, Duration) Notes Start Date End Date Status Simvastatin 20 MG TK 1 T PO ONCE A DAY Oral; Duration: 90 Active Irbesartan 150 MG TAKE 1 TABLET BY ARNOLD TH EVERY DAY Oral; Duration: 90 Active MiraLax (colon prep) 17 GM/SCOOP mixed with Gatorade or Crystal Light Orally begin at 5:00 p.m. the day before the procedure; Duration: 1 day 07/10/2023 Active Triamterene-HCTZ 37.5/25mg Active Avapro 150mg Active Zolpidem Tartrate 5 MG Oral; Duration: 30 Active Encounters Encounter Location Date Provider Diagnosis [facility] [place] [address] [place], [place] [id number] 03/10/2024 Favian Gonzalez Jr Colon cancer screening [...] WOODROW NOVAK MDOB:1960 ( 64 yo F)Acc No.[id number]:03/10/2024 COLON WITH MAC Patient: WOODROW KOO Provider: Bridger Gonzalez MD :1960 A ge:63 Y S ex:Female Date:03/10/2024 Address:[facility] [address] [place], [facility] Pcp:Reid Husain (RETIRED )MD Subjective: * Chief Complaints: * 1 . Screening,fam hx colon cancer. * Medical History: * Medications: T aking Triamterene-HCTZ 37.5/25mg , Taking Avapro 150mg , Taking Simvastatin 20 MG Tablet TK 1 T PO ONCE A DAY Oral , Taking Zolpidem Tartrate 5 MG Tablet Oral , Taking Irbesartan 150 MG Tablet TAKE 1 TABLET BY MOUTH EVERY DAY Oral , Taking MiraLax (colon prep) 17 GM/SCOOP Powder mixed with Gatorade or Crystal Light Orally begin at 5:00 p.m. the day before the procedure Objective: * Vitals: Assessment: * Assessment: 1. C olon cancer screening - Z12.11 (Primary) 2 . C olon polyps - K63.5? 3. F amily history of colon cancer - Z80.0 Plan: * Treatment: * Procedure Codes: 4 5380 COLONOSCOPY AND BIOPSY, 0529F INTRVL 3+YRS PTS CLNSCP DOCD * * The named appointment provid er may or may not be the originator of this progress note, and it is not deemed complete until electronically signed by the appointment provider. Sign off status: Pending * Provider: Bridger Gonzalez MD Date: 05/10/2023 Generated for Estella guevara/Emerson/Liyah on: 08:55 AM EDT
--- NOTE | 2025-02-11 08:30 | MHC.PC.OV ---
Vital Signs 02/11/25 08:35 Height 5 ft 4 in Weight 237 lb 6 oz BMI 40.7 BP 130/78 Blood Pressure Location Rt brachial Position Sitting Respiration 16 Pulse 80 Pulse Source Pulse Oximeter Temp 97.9 F Temp Source Temporal Artery Scan Pulse Oximetry (%) 96 Oxygen Delivery Method Room Air Intake Visit Reasons: annual physical exam Intake Note: Ayesha presents in the office today for her annual physical. Allergies semaglutide (From Ozempic) Adverse Reaction (Intermediate, Verified 02/11/25 08:49) Abdominal Pain Ivory soap Allergy (Mild, Uncoded 02/11/25 08:33) rash, itching Medication List - Last Reconciled 02/11/25 by RAMÓN Paul albuterol sulfate 90 mcg/actuation 90 mcg inhalation Q4H PRN celecoxib 200 mg PO BID fluocinonide 0.05% 1 appl topical .twice weekly irbesartan (Avapro) 150 mg PO DAILY simvastatin 20 mg PO BEDTIME tirzepatide (Mounjaro) 5 mg (0.5 mL) subcut QWEEK triamterene-hydrochlorothiazid 37.5-25 mg 1 cap PO BID zolpidem 5 mg PO BEDTIME PRN Tobacco use date assessed: 02/11/25 Dental Screening Dental Screen Date: 02/11/25 Did you have a dental visit in the last 12 months?: Yes Did you have a dental problem in the last 6 months where you did not have access to dental care?: No Was dental information given to patient?: Patient has dentist HPI HPI Comments History of Present Illness Details 64 year old female with Type II DM, HLD, HTN, OA of the knees and obesity presents for a physical exam. Hyperlipidemia-taking simvastatin 20 mg daily. Type 2 diabetes-controlled. She has been taking compounded tirzepatide, but her insurance change, and she would like to go on prescription Mounjaro. Denies side effects on tirzepatide. Ozempic caused abdominal pain. When she took metformin with a GLP 1 she had heart palpitations. Hypertension-treated with irbesartan and triamterene-hydrochlorothiazide. Her blood pressure is well-controlled. Reports 1-2 episodes per year of left salivary gland swelling treated with amoxicillin for the past 4-5 years. This happened when she was at the [facility] at the beginning of December. Symptoms resolved. Patient is referred to ENT for evaluation. Advised to call if she has persistent pain or swelling. She has colonoscopies every 5 years due to her family history. Last colonoscopy 03/10/[address] Gonzalez. She had a single polyp. Gynecology visit is scheduled in September 2025. She has a mammogram scheduled in February. She is seen at [facility] for OA. She takes Celebrex. She received a Euflexxa injection. Insomnia is treated with Zolpidem as needed. She had trace blood on urinalysis in March 2024. Lab urinalysis was negative for this on 06/22/2024 and at her last visit. She denies gross hematuria, frequency, dysuria. She is a nonsmoker. Denies family history of bladder/renal cancer. She has a rescue inhaler, but she has not needed it for several years. Flu vaccine administered today. Patient will get pneumonia vaccine and Tdap at her pharmacy. ROS: Constitutional: No unexplained weight loss, fever, chills, fatigue or night sweats. Eyes: No vision changes, blurry vision, double vision, eye pain, eye redness, eye discharge. ENT: No hearing loss, sneezing, congestion, runny nose or sore throat. Respiratory: No shortness of breath, cough or sputum production. Cardiovascular: No chest pain, chest pressure or chest discomfort. No palpitations or pedal edema. Gastrointestinal: No anorexia, nausea, vomiting or diarrhea. No abdominal pain or blood in stool. Genitourinary: No dysuria, hematuria, urinary frequency. Neurologic: No headache, dizziness, syncope, unilateral weakness, ataxia, numbness or tingling in the extremities. Musculoskeletal: No muscle pain, back pain, joint pain or swelling. Hematologic/Lymphatics: No bleeding or bruising. No painful lymph nodes. Skin: No rash or itching. Endocrine: No cold or heat intolerance. No polyuria or polydipsia. Psychiatric: No depression or anxiety. No SI/HI. Physical exam: Constitutional: Alert, in no distress. Head: Normocephalic. Eyes: Pupils are equal, round and reactive to light. Extraocular muscles intact. Ear, Nose and Throat: Canals clear. TMs normal. Normal nasal mucosa. No nasal discharge. No oral lesions. Neck: Supple, Full range of motion. No lymphadenopathy. No palpable neck or thyroid masses. Respiratory: Clear to auscultation. Cardiovascular: S1 S2 regular. No murmurs. No carotid bruits. Gastrointestinal: Abdomen soft, non-tender, non-distended. Normal bowel sounds. No palpable masses. Genitourinary: No costovertebral angle tenderness. Neurologic: No focal neurological deficits. Symmetric patellar reflexes. Moves all extremities spontaneously. Sensation intact bilaterally. Skin: No rashes Musculoskeletal: No gross deformities. Normal range of motion. Extremities: Warm and well perfused. No clubbing, cyanosis or edema. Intact peripheral pulses bilaterally. Psychiatric: Normal mood and affect [facility] Medical History (Updated 02/11/25 @ 09:21 by RAMÓN Paul) Salivary gland adenitis Microhematuria Insomnia Class 3 obesity Controlled type 2 diabetes mellitus Hyperlipidemia Essential hypertension Fibroid Lichen sclerosus Asthma High blood pressure High cholesterol Surgical History (Updated 06/22/24 @ 14:08 by Joanne Sethi [facility]) History of back surgery H/O colonoscopy (2023) H/O umbilical hernia repair H/O hand surgery Hx of tonsillectomy Family History Mother Colon cancer Maternal Aunt Colon cancer Family/Other History of breast cancer Family/Other History of breast cancer Social History (Updated 02/11/25 @ 08:35 by Abbey Elise CMA) Housing: House Are you a primary career orientation teacher to a significant other at home: No Do you presently have visiting nurse or other home services: No Alcohol intake: current Alcohol intake frequency: a few times a month Comment: medicated with po tylenol Patient Tobacco Use Status: Former Tobacco user Tobacco use type: Cigarette e-Cigarette/Vaping Use: Never Used Second Hand Smoke Exposure: No Substance Use Type: Marijuana service: No Current occupational status: employed and retired Current occupational exposures/hazards: No Sexual orientation: Straight/Heterosexual Gender identity: Female Cognitive needs: No Hearing needs: No Vision needs: Yes Female Reproductive History Menstrual Age of Menarche: 13 Questionnaire PHQ-9 Over the last 2 weeks, how often have you been bothered by any of the following problems? 1. Little interest or pleasure in doing things: not at all 2. Feeling down, depressed, or hopeless: not at all 3. Trouble falling or staying asleep, or sleeping too much: more than half the days 4. Feeling tired or having little energy: several days 5. Poor appetite or overeating: not at all 6. Feeling bad about yourself - or that you are a failure or have let yourself or your family down: not at all 7. Trouble concentrating on things, such as reading the newspaper or watching television: not at all 8. Moving or speaking so slowly that other people could have noticed. Or the opposite - being so fidgety or restless that you have been moving around a lot more than usual: not at all 9. Thoughts that you would be better off or of hurting yourself in some way: not at all Total score: 3 Depression Screening Interpretation: Negative Depression Screening Done: Yes 86045 - PHQ-9 Billing: Yes Source: Developed by Drs. González Lewis, Mirna Todd, Natanael Dutton and colleagues, with an educational alexandro from [email or web address]. Thrive Questionnaire Date Thrive assessed: 02/11/25 I am a: Patient What is your living situation today?: I have a steady place to live Within the past 12 months, did the food you bought not last and you didn't have the money to get more?: Never true Within the past 12 months, did you worry whether your food would run out before you got money to buy more?: Never true Do you have trouble paying for medicines?: No Do you have trouble getting transportation to medical appointments?: No Do you have trouble paying your heating and electricity bill?: No Do you have trouble taking care of your child, family member or friend?: No Do you have trouble with day-to-day activities such as bathing, preparing meals, shopping, managing finances, etc.?: No Are you currently unemployed and looking for a job?: No Are you interested in more education?: No Please select the resources that you would like help with: None Currently or been in a relationship where the following occur: No concerns reported THRIVE Score: 0 AUDIT C Alcohol Use Questionnaire (AUDIT-C) 1. How often do you have a drink containing alcohol?: Monthly or less 2. How many drinks containing alcohol do you have on a typical day when you are drinking?: 1 or 2 3. How often do you have six or more drinks on one occasion?: Never Total Score: 1 IVY-7 AMB Questionnaire IVY-7 Date IVY - 7 assessed: 02/11/25 Feeling nervous, anxious, or on edge: 0 = Not at all Not being able to stop or control worryin = Not at all Worrying too much about different things: 0 = Not at all Trouble relaxin = Not at all Being so restless that it is hard to sit still: 0 = Not at all Becoming easily annoyed or irritable: 0 = Not at all Feeling afraid as if something awful might happen: 0 = Not at all Total IVY-7 score (0-4 normal; 5-9 mild; 10-14 moderate; 15-21 severe): 0 Source: Developed by Drs. González Lewis, Mirna Todd, Natanael Dutton and colleagues, with an educational alexandro from [email or web address]. IVY-7 Assessment Billing IVY-7 Assessment Tool: IVY-7 Assessment 99369 Physical exam (Primary Care) Vital Signs: Last Vital Signs Temp 97.9 F 02/11/25 08:35 Pulse 80 02/11/25 08:35 Resp 16 02/11/25 08:35 BP 130/78 02/11/25 08:35 Pulse Ox 96 02/11/25 08:35 Oxygen Delivery Method Room Air 02/11/25 08:35 BMI result Body Mass Index 40.7 Tobacco/Smoking Status: Tobacco use Status Tobacco use date assessed 02/11/25 02/11/25 08:40 Patient Tobacco Use Status Former Tobacco user 02/11/25 08:35 Tobacco use type Cigarette 02/11/25 08:35 e-Cigarette/Vaping Use Never Used 02/11/25 08:35 PHQ-9: PHQ-9 Score PHQ-9: Total score 3 02/11/25 08:44 Depression Screening Interpretation: Negative Thrive Assessment: Date of Thrive Assessment Date Thrive assessed 02/11/25 02/11/25 08:44 Currently or been in a relationship where the following occur: No concerns reported Office Procedures Flu Questionnaire Does the patient have a severe egg allergy?: No Does the patient have severe life threatening allergies?: No Does the patient have a fever or illness today?: No Has the patient ever had Guillain-Rexburg Syndrome?: No Has the patient ever had any past reaction to a flu shot?: No Immunizations Fluarix 8919-3031 (PF) 45 mcg (15 mcg x 3)/0.5 mL IM syringe Performing Provider: RAMÓN Paul [place]forming [place] [facility] Administered by: Abbey Elise CMA on 02/11/25 09:25 Dose Route Admin Location Dispensed Lot Number Expiration Date NDC Electrophysiology Tech 0.5 mL IM Left Deltoid 0.5 mL [id number] 10/12/25 [id number] Zura! VIS Given Date VIS Provided VIS Publication Date 02/11/25 Single Vaccine 24 Eligibility Eligibility Date Funding Source Not [facility] Eligible 02/11/25 Private Coding Level of Care Code Est Pt Prev Care 40-64y(64972) Diagnoses Routine physical examination Z00.00 Pure hypercholesterolemia E78.00 Hyperlipidemia type: pure hypercholesterolemia Essential hypertension I10 Controlled type 2 diabetes mellitus without complication, without long-term current use of insulin E11.9 Diabetes mellitus complication status: without complication Diabetes mellitus penitentiary insulin use: without laborer marine terminal 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 As part of this visit we reviewed the following issues, which are considered and essential part of preventative health in this age group: - Breast Cancer screening - Annual Wind Farm Engineer exam - Screening for colon cancer - Blood pressure screening annually - Cholesterol screening - Osteoporosis prevention including calcium/vitamin D intake, weight bearing exercise & smoking cessation. Discussed bone density test at next visit. - Nutritional and exercise counseling - Counseling of injury prevention including fire prevention, smoke alarms and seat belt usage - Screening for depression - Education about skin cancer - Recommendations about immunizations - Recommendation of an eye exam (2) Hyperlipidemia: Code(s): E78.5 - Hyperlipidemia, unspecified Category: Medical Qualifiers: Hyperlipidemia type: pure hypercholesterolemia Qualified Code(s): E78.00 - Pure hypercholesterolemia, unspecified Plan: LDL at goal. Continue simvastatin. Continue lifestyle modifications. (3) Essential hypertension: Code(s): I10 - Essential (primary) hypertension Category: Medical Plan: Well-controlled. Recommended low-sodium diet and avoidance of caffeine. Continue current medications. We did discuss possibly stopping hydrochlorothiazide because she read this could cause issues with her salivary gland however she does get lower extremity edema without taking it. I will look into this further. (4) Controlled type 2 diabetes mellitus: Code(s): E11.9 - Type 2 diabetes mellitus without complications Category: Medical Qualifiers: Diabetes mellitus complication status: without complication Diabetes mellitus penitentiary insulin use: without laborer marine terminal use Qualified Code(s): E11.9 - Type 2 diabetes mellitus without complications Plan: Patient can start Mounjaro at 5 mg since she tolerated compounded tirzepatide. Side effects reviewed. Denies contraindications. She had a CAT scan a couple of years ago which showed no gallbladder pathology. Discussed pathophysiology of Type II Diabetes Mellitus with the patient in detail.? I explained the laborer marine terminal risks and complications associated with uncontrolled diabetes including nephropathy, neuropathy, peripheral vascular disease, retinopathy, increased risk of heart disease and stroke.? Referred for annual eye exam. Glucometer prescribed. Reviewed target ranges for blood sugar. Reviewed treatment of hypoglycemia. Written instructions sent to patient portal. (5) Class 3 obesity: Code(s): E66.813 - Obesity, class 3 Category: Medical Plan: see plan above. Limit portion sizes. Recommended low carb, low sugar diet and encouraged exercise to promote weight loss. (6) Insomnia: Code(s): G47.00 - Insomnia, unspecified Category: Medical Plan: Will continue Zolpidem 5 mg prn. The patient is cautioned that the medication can cause sedation and drowsiness. They should not drive or operate heavy machinery when taking it. They are cautioned it is a controlled substance which is addictive. It must be taken as prescribed. They can not drink alcohol with this medication since doing so can cause respiratory suppression and increase risk of falls which may result in morbidity and mortality. (7) Microhematuria: Code(s): R31.29 - Other microscopic hematuria Category: Medical Plan: Trace blood on 1 prior urinalysis. Subsequent urinalysis x2 negative for hematuria. We will continue to monitor, if she develops genitourinary symptoms or recurrence of hematuria I will refer her to Urology. Plan Follow up in 3 months for type 2 diabetes. Orders: Orders UA w Microscopic Today E11.9 - Type 2 diabetes mellitus without complications, E78.00 - Pure hypercholesterolemia, unspecified, I10 - Essential (primary) hypertension, R31.29 - Other microscopic hematuria Urine Culture Today E11.9 - Type 2 diabetes mellitus without complications, E78.00 - Pure hypercholesterolemia, unspecified, I10 - Essential (primary) hypertension, R31.29 - Other microscopic hematuria Lipid Panel Today E11.9 - Type 2 diabetes mellitus without complications, E78.5 - Hyperlipidemia, unspecified, I10 - Essential (primary) hypertension, R31.29 - Other microscopic hematuria Microalbumin, Random (w Creat) Today E11.9 - Type 2 diabetes mellitus without complications Hemoglobin A1c Today E11.9 - Type 2 diabetes mellitus without complications, E78.00 - Pure hypercholesterolemia, unspecified, I10 - Essential (primary) hypertension, R31.29 - Other microscopic hematuria, R73.9 - Hyperglycemia, unspecified Comprehensive Met. Panel Today E11.9 - Type 2 diabetes mellitus without complications, E78.00 - Pure hypercholesterolemia, unspecified, I10 - Essential (primary) hypertension, R31.29 - Other microscopic hematuria Complete Blood Count no Diff Today E11.9 - Type 2 diabetes mellitus without complications, E78.00 - Pure hypercholesterolemia, unspecified, I10 - Essential (primary) hypertension, R31.29 - Other microscopic hematuria Influenza [id number] Immunization Today Z23 - Encounter for immunization Referrals Ophthalmology Referral E11.9 - Type 2 diabetes mellitus without complications Ear/Nose/Throat Referral K11.20 - Sialoadenitis, unspecified Medications: New lancets (Accu-Chek Softclix Lancets) As directed to monitor glucose up to 2 times daily 100 ea 5RF tirzepatide (Mounjaro) 5 mg (0.5 mL) subcut QWEEK 2 mL 0RF blood sugar diagnostic (Accu-Chek Guide test strips) As directed to check blood sugar twice daily. 100 ea 5RF E11.65 - Type 2 diabetes mellitus with hyperglycemia blood-glucose meter (Accu-Chek Guide Glucose Meter) As directed to check blood sugar 1 ea 0RF E11.65 - Type 2 diabetes mellitus with hyperglycemia
[2025-02-11 08:35] VITALS: BP 130/78; PULSE 80; RESP 16; TEMP 36.6; O2SAT 96; BMI 40.7
--- OUTSIDE RECORDS SUMMARY | 2025-02-11 08:55 | XMS_ITS | Patient Health Record ---
Author Organization [facility] Address [address] [place] [address] Care Team Providers Care Instrument Lens Grinder Name Role Phone Rodrigue (RETIRED) Reid AMBROSIO Primary Care Provide r Unavailable Favian Gonzalez Jr Unavailable [phone] Allergies No Known Allergies Results Component Value Reference Range Notes Pathology Reviewed date:03/16/2024 04:46:08 PM Interpretation: Performing Lab:[facility], [address] [place] [id number] Notes/Report: Reason For Referral No Information Medications Medication SIG (Take, Route, Frequency, Duration) Notes Start Date End Date Status Simvastatin 20 MG TK 1 T PO ONCE A DAY Oral; Duration: 90 Active Zolpidem Tartrate 5 MG Oral; Duration: 30 Active Irbesartan 150 MG TAKE 1 [...] Problem Status W/U Status Risk Notes Problem Colon cancer screening (770144984) Colon cancer screening (Z12.11) Active confirmed Problem Pre-procedure evaluation check (549832166) Encounter for other preprocedural examination (Z01.818) Active confirmed Problem Generalized abdominal pain (247656174) Generalized abdominal pain (R10.84) Active confirmed Problem Family history of malignant neoplasm of gastrointestinal tract (487698235) FH: colon cancer (Z80.0) Active confirmed Problem Long-term current use of drug therapy (013265626) [facility]PC current use of diuretic (Z79.899) Active confirmed Encounters Encounter Location Date Provider Diagnosis [facility] [place] [facility] [address] [place], [place] [id number] 03/10/2024 Favian Gonzalez Jr Colon cancer screening Z12.11 ; Colon polyps K63.5 and Family history of colon cancer Z80.0 [facility] [address] [place] [address] 03/16/2024 Favian Gonzalez Jr Assessments Encounter Date [...] Insured Coverage Start Date Coverage End Date [facility] [address] [place] [address] [id number] WOODROW NOVAK Self - patient is the insured Medical (General) History Medical History History ICD Code hypertension Asthma, cold-induced Hyperlipidemia Prediabetes Surgical History Surgery Date(Month/Year) tonsillectomy hernia repair, umbilical 04/2017 hand surgery Back fusion
== END 2025-02-11 09:22 | disposition home or self-care (01) ==
PROVIDERS: PCP Physician Assistant Medical; Visit Provider Physician Assistant Medical
DX: Z00.00 Encounter for general adult medical examination without abnormal findings (principal); E11.9 Type 2 diabetes mellitus without complications; E66.813 Obesity, class 3; Z68.41 Body mass index [BMI] 40.0-44.9, adult; E78.00 Pure hypercholesterolemia, unspecified; I10 Essential (primary) hypertension; G47.00 Insomnia, unspecified; R31.29 Other microscopic hematuria; Z23 Encounter for immunization

== ENCOUNTER 2025-03-10 07:58 | Outpatient (REF) | payer OTHER, SELFPAY ==
--- OUTSIDE RECORDS SUMMARY | 2023-10-21 06:20 | XMS_ITS ---
Author Organization [facility] Address [address] [place] [facility] [place] [address] Care Team Providers Care Meat Stringer Name Role Phone Rodrigue (RETIRED) Reid AMBROSIO Primary Care Provide r Favian Lee Jr REASON FOR VISIT abdominal pain Encounters Encounter Location Date Provider Diagnosis [facility] [address] [facility] [place] [address] 10/21/2023 Favian Gonzalez Jr Plan Of Treatment No Information Progress Notes * WOODROW NOVAK MDOB:1960 ( 64 yo F)Acc No.[id number]:10/21/2023 Progress Notes Patient: WOODROW KOO Provider: Bridger Gonzalez MD :1960 A ge:63 Y S ex:Female Date:10/21/2023 Address:[address] [id number] Pcp:Reid Husain (RETIRED )MD Subjective: * Chief Complaints: * A bdominal pain * The named appointment provid er may or may not be the originator of this progress note, and it is not deemed complete until electronically signed by the appointment provider. Sign off status: Pending * Provider: Bridger Gonzalez MD Date: 0 10/21/2023 Generated for Printi ng/Faxing/eTransmitting on: 1 05/10/2024 08:07 AM EST
--- OUTSIDE RECORDS SUMMARY | 2024-03-10 02:30 | XMS_ITS ---
Author Organization [facility] Address [address] [place] [address] Care Team Providers Care Regional Account Executive Name Role Phone Rodrigue (RETIRED) Reid AMBROSIO Primary Care Provide r Favian Lee Jr REASON FOR VISIT screening,fam hx colon cancer Medications Medication SIG (Take, Route, Frequency, Duration) Notes Start Date End Date Status Simvastatin 20 MG Tablet TK 1 T PO ONCE A DAY Oral; Duration: 90 Active Irbesartan 150 MG Tablet TAKE 1 TABLET B Y MOUTH EVERY DAY Oral; Duration: 90 Active MiraLax (colon prep) 17 GM/SCOOP Powder mixed with Gatorade or Crystal Light Orally begin at 5:00 p.m. the day before the procedure; Duration: 1 day 07/10/2023 Active Triamterene-HCTZ 37.5/25mg Active Avapro 150mg Active Zolpidem Tartrate 5 MG Tablet Oral; Duration: 30 Active Encounters Encounter Location Date Provider Diagnosis [facility] [place] Out[place] [address] [place], [place] [id number] 03/10/2024 Favian Gonzalez Jr Colon cancer screening Z12.11 ; Colon polyps K63.5 and Family history of colon cancer Z80.0 Assessments Encounter Date Diagnosis (ICD Code) Assessment Notes Treatment Notes Treatment Clinical Notes Section Notes 03/10/2024 Colon cancer screening (ICD-10 - Z12.11) 03/10/2024 Colon polyps (ICD-10 - K63.5) 03/10/2024 Family history of colon cancer (ICD-10 - Z80.0) Plan Of Treatment No Information Progress Notes * WOODROW NOVAK MDOB:1960 ( 64 yo F)Acc No.[id number]:03/10/2024 COLON WITH MAC Patient: WOODROW KOO Provider: Bridger Gonzalez MD :1960 A ge:63 Y S ex:Female Date:03/10/2024 Address:[address] Pcp:Reid Husain (RETIRED )MD Subjective: * Chief Complaints: * S creening,fam hx colon cancer * Medications: T akingTriamterene-HCTZ 37.5/25mg Avapro 150mg Simvastatin 20 MG Tablet TK 1 T PO ONCE A DAY Oral Zolpidem Tartrate 5 MG Tablet Oral Irbesartan 150 MG Tablet TAKE 1 TABLET BY MOUTH EVERY DAY Oral MiraLax (colon prep) 17 GM/SCOOP Powder mixed with Gatorade or Crystal Light Orally begin at 5:00 p.m. the day before the procedure Taking Triamterene-HCTZ 37.5/25mg Taking Avapro 150mg Taking Simvastatin 20 MG Tablet TK 1 T PO ONCE A DAY Oral Taking Zolpidem Tartrate 5 MG Tablet Oral Taking Irbesartan 150 MG Tablet TAKE 1 TABLET BY MOUTH EVERY DAY Oral Taking MiraLax (colon prep) 17 GM/SCOOP Powder mixed with Gatorade or Crystal Light Orally begin at 5:00 p.m. the day before the procedure Assessment: * Assessment: 1. C olon cancer screening - Z12.11 (Primary) 2 . C olon polyps - K63.5? 3. F amily history of colon cancer - Z80.0 Plan: * Procedure Codes: 4 5380 COLONOSCOPY AND [id number] INTRVL 3+YRS PTS CLNSCP DOCD Billing Information: * Procedure Codes: 69451 COLONOSCOPY AND BIOPSY. 0529F INTRVL 3+YRS PTS CLNSCP DOCD. * The named appointment provid er may or may not be the originator of this progress note, and it is not deemed complete until electronically signed by the appointment provider. Sign off status: Pending * Provider: Bridger Gonzalez MD Date: 05/10/2023 Generated for Estella guevara/Emerson/Liyah on: 05/10/2024 08:07 AM EST
--- NOTE | ~2025-03-10 | MM_ITS ---
EXAMINATION: MM SCREENING DIGITAL BREAST TOMOSYNTHESIS, BILATERAL CLINICAL INFORMATION: Screening. Asymptomatic. COMPARISON: Comparison made to multiple prior, most recent March 04, 2024, and most remote August 15, 2018. TECHNIQUE: Digital breast tomosynthesis is performed in mediolateral oblique and craniocaudal views along with computer-aided detection (CAD). Synthesized 2D images are generated from the tomosynthesis. FINDINGS: BREAST COMPOSITION: There are scattered areas of fibroglandular density. BILATERAL BREASTS: No significant masses, suspicious calcifications or other abnormalities are seen in either breast. MM/MM tomosynthesis screening BI IMPRESSION: BILATERAL BREASTS: Negative, no mammographic evidence of malignancy. Normal interval follow-up is recommended in 12 months. ASSESSMENT: BI-RADS: Category 1: Negative RECOMMENDATION: Routine annual mammography screening. FOLLOW-UP: 1 year F/U This examination should not preclude the clinical evaluation of a suspicious palpable abnormality. This patient's information was entered into a reminder system with a target due date for their next mammogram. Electronically signed by: Cristiano Wisdom MD 03/10/2025 07:56 PM [facility]
--- OUTSIDE RECORDS SUMMARY | 2025-03-10 08:07 | XMS_ITS | Patient Health Record ---
Author Organization [facility] Address [address] [place] [address] Care Team Providers Care Heating And Blending Supervisor Name Role Phone Rodrigue (RETIRED) Reid AMBROSIO Primary Care Provide r Unavailable Favian Gonzalez Jr Unavailable Allergies No Known Allergies Results Component Value Reference Range Notes Pathology Reviewed date:03/16/2024 04:46:08 PM Interpretation: Performing Lab:[facility], [address] [place] [phone] Notes/Report: Reason For Referral No Information Medications Medication SIG (Take, Route, Frequency, Duration) Notes Start Date End Date Status Simvastatin 20 MG Tablet TK 1 T PO ONCE A DAY Oral; Duration: 90 Active Zolpidem Tartrate 5 MG Tablet Oral; Duration: 30 Active Irbesartan 150 MG Tablet TAKE 1 [...] stop date) Former Smoker NA - NA Social History Tobacco Use: Social Info Question Answer Notes Tobacco Use/Smoking Patient is a former smoker When did you stop smoking? age 23 How long has it been since you last smoked? 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 Problems Problem Type SNOMED Code ICD Code Onset Dates Problem Status W/U Status Risk Notes Problem Colon cancer screening (398548778) Colon cancer screening (Z12.11) Active confirmed Problem Pre-procedure evaluation check (545850639) Encounter for other preprocedural examination (Z01.818) Active confirmed Problem Generalized abdominal pain (765328542) Generalized abdominal pain (R10.84) Active confirmed Problem Family history of malignant neoplasm of gastrointestinal tract (270005070) FH: colon cancer (Z80.0) Active confirmed Problem Long-term current use of drug therapy (190676358) detention current use of diuretic (Z79.899) Active confirmed Encounters Encounter Location Date Provider Diagnosis [facility] [place] Out[place] [address] [place], [place] [id number] 03/10/2024 Favian Gonzalez Jr Colon cancer screening Z12.11 ; Colon polyps K63.5 and Family history of colon cancer Z80.0 [facility] [address] [place] [address] 03/16/2024 Favian Gonzalez Jr Assessments Encounter Date [...] Insured Coverage Start Date Coverage End Date [employer] [facility] [address] [place] [phone] [id number] WOODROW NOVAK Self - patient is the insured Medical (General) History Medical History History ICD Code hypertension Asthma, cold-induced Hyperlipidemia Prediabetes Surgical History Surgery Date(Month/Year) tonsillectomy hernia repair, umbilical 04/2017 hand surgery Back fusion
== END 2025-03-10 07:59 | disposition home or self-care (01) ==
LOC: HO.MAMMO 07:58
PROVIDERS: PCP Physician Assistant Medical; Visit Provider Physician Assistant Medical
DX: Z12.31 Encounter for screening mammogram for malignant neoplasm of breast (principal)
CPT/HCPCS: 77063; 77067

== ENCOUNTER → 2025-03-10 08:15 | Outpatient (BNV) | payer OTHER, SELFPAY | PROVIDERS: PCP Physician Assistant Medical; Visit Provider Radiology Body Imaging | DX: Z12.31 Encounter for screening mammogram for malignant neoplasm of breast (principal) | CPT/HCPCS: 77063; 77067 ==

== ENCOUNTER 2025-03-25 20:32 | Emergency (ER) | payer OTHER, SELFPAY ==
--- OUTSIDE RECORDS SUMMARY | 2023-10-21 06:20 | XMS_ITS ---
Author Organization [facility] Address [address] [facility] [place] [address] Care Team Providers Care Metal Slitter Name Role Phone Rodrigue (RETIRED) Reid AMBROSIO Primary Care Provide r Favian Lee Jr REASON FOR VISIT abdominal pain Encounters Encounter Location Date Provider Diagnosis [facility] [address] [facility] [place] [address] 10/21/2023 Favian Gonzalez Jr Plan Of Treatment No Information Progress Notes * WOODROW NOVKA MDOB:1960 ( 64 yo F)Acc No.[id number]:10/21/2023 Progress Notes Patient: WOODROW KOO Provider: Bridger Gonzalez MD :1960 A ge:63 Y S ex:Female Date:10/21/2023 Address:[address] [id number] Pcp:Reid Husain (RETIRED )MD Subjective: * Chief Complaints: * A bdominal pain * The named appointment provid er may or may not be the originator of this progress note, and it is not deemed complete until electronically signed by the appointment provider. Sign off status: Pending * Provider: Bridger Gonzalez MD Date: 0 10/21/2023 Generated for Printi ng/Faxing/eTransmitting on: 1 05/26/2024 11:44 PM EST
--- OUTSIDE RECORDS SUMMARY | 2024-03-10 02:30 | XMS_ITS ---
Author Organization [facility] Address [address] [place] [address] Care Team Providers Care Box Truck Owner Operator Name Role Phone Rodrigue (RETIRED) Reid AMBROSIO Primary Care Provide r Favian Lee Jr [phone] REASON FOR VISIT screening,fam hx colon cancer [...] Active Encounters Encounter Location Date Provider Diagnosis [facility] [place] Out[facility] [address] [place], [place] [phone] 03/10/2024 Favian Gonzalez Jr Colon cancer screening [...] WOODROW NOVAK MDOB:1960 ( 64 yo F)Acc No.[id number]:03/10/2024 COLON WITH MAC Patient: WOODROW KOO Provider: Bridger Gonzalez MD :1960 A ge:63 Y S ex:Female Date:03/10/2024 Address:[address] [facility] Pcp:Reid Husain (RETIRED )MD Subjective: * Chief [...] * Procedure Codes: 4 5380 COLONOSCOPY AND [id number] INTRVL 3+YRS PTS CLNSCP DOCD Billing Information: * Procedure Codes: 97664 COLONOSCOPY AND BIOPSY. 0529F INTRVL 3+YRS PTS CLNSCP DOCD. * The named appointment provid er may or may not be the originator of this progress note, and it is not deemed complete until electronically signed by the appointment provider. Sign off status: Pending * Provider: Bridger Gonzalez MD Date: 05/10/2023 Generated for Estella guevara/Emerson/Liyah on: 1 05/26/2024 11:44 PM EST
--- NOTE | ~2025-03-25 | XR_ITS ---
CLINICAL HISTORY: pain 1 view chest x-ray Comparison: None provided Findings: No consolidation or effusion. Normal size heart. No acute fracture. IMPRESSION: 1. No acute findings. This document has been electronically signed by: Christelle Shah MD on 03/25/2025 22:02:23
--- NOTE | 2025-03-25 20:45 | ECG_ITS ---
Test Reason : chest comfort Blood Pressure : */* mmHG Vent. Rate : 88 BPM Atrial Rate : 88 BPM P-R Int : 172 ms QRS Dur : 100 ms QT Int : 390 ms P-R-T Axes : 71 -41 33 degrees QTcB Int : 471 ms Normal sinus rhythm Left axis deviation Low voltage QRS Possible Anterolateral infarct , age undetermined Abnormal ECG No previous ECGs available Referred By: Ignacia Lay Electronically Signed By: BRADLY RICHARD MD
[2025-03-25 20:50] VITALS: BP 101/66; BP 156/73; PULSE 84; PULSE 94; RESP 16; TEMP 36.6; O2SAT 98; BMI 19.2
[2025-03-25 21:06] LABS: Hematocrit 43.5 % (37.0-47.0); Hemoglobin 14.4 g/dl (12.0-16.0); Imm Gran Abs Auto 0.05 X10*3/uL (0.00-0.03); Imm Gran Pct Auto 0.3 % (0.0-0.4); Lymphocytes Absolute Auto 4.4 X10*3/uL (1.2-4.9); MANUAL DIFF FLAG NO; Mean Corpuscular HGB Conc 33.1 g/dl (31.0-35.0); Mean Corpuscular Hemoglobin 29.4 pg (27.0-33.0); Mean Corpuscular Volume 88.8 fL (80.0-98.0); NRBC Abs Auto 0.000 X10*3/uL (0.0-0.012); NRBC Pct Auto 0.0 /100WBC (0.0-0.2); Platelet Count 338 X10*3/uL (160-400); Red Blood Count 4.90 X10*6/uL (4.20-5.50); White Blood Count 14.7 X10*3/uL (4.8-10.8)
[2025-03-25 21:14] VITALS: BP 156/73; PULSE 84; RESP 16; TEMP 36.6; O2SAT 98
[2025-03-25 21:21] LABS: Alanine Aminotransferase 31 U/L (0-31); Albumin Level 4.5 g/dL (3.5-5.0); Alkaline Phosphatase 117 U/L (39-117); Anion Gap 12 (12-20); Aspartate Amino Transferase 31 U/L (5-31); Blood Urea Nitrogen 18 mg/dL (9-16); Calcium 9.1 mg/dL (8.4-10.2); Carbon Dioxide 26 mmol/L (22-29); Chloride 101 mmol/L (96-108); Creatinine Clr Calc Pharmacy 70.9; Estimated Glomerular Filt Rate > 60; Lipase 25 U/L (8-78); Magnesium 1.9 mg/dL (1.6-2.6); Potassium 3.6 mmol/L (3.3-5.1); Sodium 135 mmol/L (135-145); Total Protein 7.6 g/dL (6.5-8.0)
[2025-03-25] MEDS: diazePAM 10 MG/2 ML CARTRIDGE 5 MG IVPUSH (21:22)
[2025-03-25 21:29] LABS: Troponin-I High Sensitivity < 2.7 ng/L (<3.5-17.0)
[2025-03-25 22:16] LABS: Resp Syncy Virus RNA Qual PCR NEGATIVE (Negative); SARS COV2 PCR INHOUSE NEGATIVE (Negative)
--- NOTE | 2025-03-25 22:38 | ED.CHESTPAIN ---
HPI - Chest Pain General Chief Complaint: Chest Pain Stated Complaint: CHEST DISCOMFORT Time Seen by Provider: 03/25/25 20:45 Source: patient Limitations: no limitations History of Present Illness ED Provider: Ignacia Lay PA-C HPI narrative: 64-year-old female with a history of Anxiety, hypertension, hyperlipidemia, diabetes, morbid obesity who presents with chest pressure since yesterday. Patient states she was performing yoga, when she developed anterior chest discomfort. Pain worse with palpation of chest wall movement of torso and upper extremity. Denies shortness of breath, diaphoresis, nausea vomiting. Related Data Home Medications ?Medication ?Instructions ?Recorded ?Confirmed albuterol sulfate 90 mcg/actuation 90 mcg inhalation Q4H PRN 09/20/22 02/11/25 aerosol inhaler Shortness Of Breath Or Wheezing Previous Rx's ?Medication ?Instructions ?Recorded irbesartan 150 mg tablet (Avapro) 150 mg PO DAILY #90 tabs 06/22/24 simvastatin 20 mg tablet 20 mg PO BEDTIME #90 tabs 07/02/24 fluocinonide 0.05 % topical 1 appl topical .twice weekly #30 07/14/24 ointment grams zolpidem 5 mg tablet 5 mg PO BEDTIME PRN Insomnia #30 12/22/24 tabs celecoxib 200 mg capsule 200 mg PO BID #60 caps 01/29/25 triamterene 37.5 1 cap PO BID #180 caps 02/09/25 mg-hydrochlorothiazide 25 mg capsule FreeStyle Lite Meter #1 ea 02/16/25 (blood-glucose meter) blood sugar diagnostic (FreeStyle See Rx Instructions miscellaneous 02/25/25 Lite Strips) .COMPLEX #100 strips lancets 28 gauge (FreeStyle #100 ea 02/25/25 Lancets) tirzepatide 7.5 mg/0.5 mL 7.5 mg (0.5 mL) subcut QWEEK #2 mL 03/15/25 subcutaneous pen injector (Leonor) methocarbamol 750 mg tablet 1,500 mg (2 x 750 mg) PO Q8H PRN 03/25/25 pain, moderate #30 tabs Allergies Allergy/AdvReac Type Severity Reaction Status Date / Time semaglutide (From Ozempic) AdvReac Intermediate Abdominal Verified 03/25/25 20:52 Pain Ivory soap Allergy Mild rash, Uncoded 03/25/25 20:52 itching PMFSH Past Medical History Medical History (Updated 03/26/25 @ 00:00 by Noemi Camacho) Salivary gland adenitis Microhematuria Insomnia Class 3 obesity Controlled type 2 diabetes mellitus Hyperlipidemia Essential hypertension Fibroid Lichen sclerosus Asthma High blood pressure High cholesterol Surgical History (Updated 06/22/24 @ 14:08 by Joanne Sethi [facility]) History of back surgery H/O colonoscopy (2023) H/O umbilical hernia repair H/O hand surgery Hx of tonsillectomy Family History Family History Mother Colon cancer Maternal Aunt Colon cancer Family/Other History of breast cancer Family/Other History of breast cancer Social History Social History (Updated 02/11/25 @ 08:35 by Abbey Elise CMA) Housing: House Are you a primary personal care home administrator to a significant other at home: No Do you presently have visiting nurse or other home services: No Alcohol intake: current Alcohol intake frequency: does not drink Comment: medicated with po tylenol Patient Tobacco Use Status: Former Tobacco user Tobacco use type: Cigarette Years Smoked: 10 e-Cigarette/Vaping Use: Never Used Second Hand Smoke Exposure: No Substance Use Type: Marijuana service: No Current occupational status: employed and retired Current occupational exposures/hazards: No Sexual orientation: Straight/Heterosexual Gender identity: Female Cognitive needs: No Hearing needs: No Vision needs: Yes Physical Exam Vital Signs: Vital Signs: Last Vital Signs Temp 97.9 F 03/25/25 22:56 Pulse 84 03/25/25 22:56 Resp 16 03/25/25 22:56 BP 156/73 H 03/25/25 22:56 Pulse Ox 98 03/25/25 22:56 O2 Del Method Room Air 03/25/25 22:56 BMI result Body Mass Index 19.2 Medications Administered Discontinued Medications Generic Name Dose Route Start Last Admin Trade Name Freq PRN Reason Stop Dose Admin Diazepam 5 mg 03/25/25 21:15 03/25/25 21:22 Diazepam 10 Mg/2 Ml Cartridge IVPUSH 03/25/25 21:16 5 mg STAT STA Administration Ketorolac Tromethamine 15 mg 03/25/25 21:15 03/25/25 21:22 Ketorolac Tromethamine 15 Mg/Ml Vial IVPUSH 03/25/25 21:16 15 mg ONCE ONE Administration Medical Decision Making Medical Decision Making [facility] Narrative: 64-year-old female with a history of Anxiety, hypertension, hyperlipidemia, diabetes, morbid obesity who presents with chest pressure since yesterday. Patient states she was performing yoga, when she developed anterior chest discomfort. Pain worse with palpation of chest wall movement of torso and upper extremity. Denies shortness of breath, diaphoresis, nausea vomiting. problem: Cardiac risk factors, morbid obesity, anxiety History: Per patient I have considered the following differential diagnoses: Anxiety, ACS, chest wall strain Plan: Patient is having chest wall pain / strain, she has a mechanism to support it. ACS was considered given the patient has risk factors for coronary artery disease. We will treat for musculoskeletal strain. Screening labs including cardiac enzymes EKG and chest x-ray obtained. I have independently reviewed the following tests: Labs: Slight leukocytosis, no left shift, not anemic, no electrolyte abnormality troponin less than 2.7, LFTs not elevated lipase not elevated, viral panel negative EKG: Normal sinus rhythm, rate of 88, left axis deviation noted, no ischemic changes no ectopy QTC 471 Chest x-ray:Findings: No consolidation or effusion. Normal size heart. No acute fracture. IMPRESSION: 1. No acute findings. Differential Diagnosis Differential Diagnoses: The differential diagnosis associated with the presentation includes See [facility] Admission/Observation Consideration of admission/observation: Escalation of care including admission/observation considered not applicable Lab Data [facility] Lab Attestation statement: I reviewed the patient's lab results. 03/25/25 21:00 03/25/25 21:00 Labs: Lab Results 03/25/25 03/25/25 Range/Units 21:00 21:29 WBC 14.7 H (4.8-10.8) X10*3/uL RBC 4.90 (4.20-5.50) X10*6/uL Hgb 14.4 (12.0-16.0) g/dl Hct 43.5 (37.0-47.0) % MCV 88.8 (80.0-98.0) fL MCH 29.4 (27.0-33.0) pg MCHC 33.1 (31.0-35.0) g/dl RDW 12.9 (11.0-16.0) % Plt Count 338 (160-400) X10*3/uL MPV 9.7 (9.4-12.3) fL Immature Gran % (Auto) 0.3 (0.0-0.4) % Neut % (Auto) 60.2 (45-73) % Lymph % (Auto) 30.1 (20-40) % [place] % (Auto) 7.1 (2-11) % Eos % (Auto) 1.8 (0-4) % Baso % (Auto) 0.5 (0-2) % Lymph # (Auto) 4.4 (1.2-4.9) X10*3/uL [place] # (Auto) 1.1 (0.1-1.2) X10*3/uL Eos # (Auto) 0.3 (0.0-0.4) X10*3/uL Baso # (Auto) 0.1 (0.0-0.2) X10*3/uL Abs Immat Gran (auto) 0.05 H (0.00-0.03) X10*3/uL Absolute Neuts (auto) 8.9 H (2.0-8.3) x10*3/uL Absolute Nucleated RBC 0.000 (0.0-0.012) X10*3/uL Nucleated RBC % (auto) 0.0 (0.0-0.2) /100WBC Sodium 135 (135-145) mmol/L Potassium 3.6 (3.3-5.1) mmol/L Chloride 101 (96-108) mmol/L Carbon Dioxide 26 (22-29) mmol/L Anion Gap 12 (12-20) BUN 18 H (9-16) mg/dL Creatinine 0.65 (0.5-1.4) mg/dL Estim Creat Clear Calc 70.9 Estimated GFR > 60 Random Glucose 146 H (60-115) mg/dL Calcium 9.1 (8.4-10.2) mg/dL Magnesium 1.9 (1.6-2.6) mg/dL Total Bilirubin 0.6 (0.0-1.0) mg/dL AST 31 (5-31) U/L ALT 31 (0-31) U/L Alkaline Phosphatase 117 (39-117) U/L Troponin I High Sens < 2.7 (<3.5-17.0) ng/L Total Protein 7.6 (6.5-8.0) g/dL Albumin 4.5 (3.5-5.0) g/dL Lipase 25 (8-78) U/L Influenza Type A (PCR) NEGATIVE (Negative) Influenza Type B (PCR) NEGATIVE (Negative) RSV RNA Qual (PCR) NEGATIVE (Negative) SARS-CoV-2 RNA (RT-PCR) NEGATIVE (Negative) Independent Interpretation I performed an independent interpretation of an: EKG Radiology Impression Discussion of test interpretation with radiology: I have reviewed the radiologist's reading. Discharge Plan Discharge Clinical Impression: Chest wall pain Patient Disposition: Home, Self-Care Instructions: Chest Wall Pain (ED) Additional Instructions: Your discomfort is consistent with chest wall pain/strain. See home care instructions. All of your screening labs including a cardiac enzymes were normal. There were no concerning changes on the EKG in the chest x-ray is clear. You were also screened for influenza COVID and RSV, the viral panel was negative. Use the celecoxib as needed for pain. Use the methocarbamol as needed for further pain, this is a muscle relaxant, it will cause drowsiness, do not drive or operate machinery while taking this medication. Prescriptions: New methocarbamol 750 mg tablet 1,500 mg PO Q8H PRN (Reason: pain, moderate) Qty: 30 0RF No Action simvastatin 20 mg tablet 20 mg PO BEDTIME Qty: 90 3RF fluocinonide 0.05 % ointment 1 appl topical .twice weekly Qty: 30 1RF Rx Instructions: apply a thin coat twice weekly for maintenance dosing. zolpidem 5 mg tablet 5 mg PO BEDTIME PRN (Reason: Insomnia) Qty: 30 1RF celecoxib 200 mg capsule 200 mg PO BID Qty: 60 3RF triamterene-hydrochlorothiazid 37.5-25 mg capsule 1 cap PO BID Qty: 180 3RF (DME) blood-glucose meter [FreeStyle Lite Meter] Kit See Rx Instructions .Route Qty: 1 0RF Rx Instructions: As directed FreeStyle Lite Strips Strip See Rx Instructions miscellaneous .COMPLEX Qty: 100 5RF Rx Instructions: Use 1 strip topically once daily to monitor blood glucose. (DME) lancets [FreeStyle Lancets] 28 gauge misc See Rx Instructions .ROUTE .MEDSUPPLY Qty: 100 5RF Rx Instructions: Use 1 strip topically once daily to monitor blood glucose. Mounjaro 7.5 mg/0.5 mL pen injector 7.5 mg subcut QWEEK Qty: 2 0RF albuterol sulfate 90 mcg/actuation HFA aerosol inhaler 90 mcg inhalation Q4H PRN (Reason: Shortness Of Breath Or Wheezing) irbesartan [Avapro] 150 mg tablet 150 mg PO DAILY Qty: 90 3RF Interventions: ED Discharge Assessment Last Done: 03/25/25 22:56 Discharge Date/Time: 03/25/25 22:57 Print Language: Polish
[2025-03-25 22:56] VITALS: BP 156/73; PULSE 84; RESP 16; TEMP 36.6; O2SAT 98
--- OUTSIDE RECORDS SUMMARY | 2025-03-25 23:44 | XMS_ITS | Patient Health Record ---
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 Problems Problem Type SNOMED Code ICD Code Onset Dates Problem Status W/U Status Risk Notes Problem Colon cancer screening (098632264) Colon cancer screening (Z12.11) Active confirmed Problem Pre-procedure evaluation check (835271308) Encounter for other preprocedural examination (Z01.818) Active confirmed Problem Generalized abdominal pain (710851766) Generalized abdominal pain (R10.84) Active confirmed Problem Family history of malignant neoplasm of gastrointestinal tract (042428924) FH: colon cancer (Z80.0) Active confirmed Problem Long-term current use of drug therapy (074419631) detention current use of diuretic (Z79.899) Active confirmed Plan Of Treatment Future Test Test Name Order Date COLONOSCOPY 11/06/2018 COLONOSCOPY 07/10/2023 Insurance Providers Payer Name Payer Address Payer Phone Subscriber Number Group Number Insured Name Patient Relationship to Insured Coverage Start Date Coverage End Date [facility] [address] [place] [address] [id number] WOODROW NOVAK Self - patient is the insured Medical (General) History Medical History History ICD Code hypertension Asthma, cold-induced Hyperlipidemia Prediabetes Surgical History Surgery Date(Month/Year) tonsillectomy hernia repair, umbilical 04/2017 hand surgery Back fusion
== END 2025-03-25 22:57 | disposition home or self-care (01) ==
PROVIDERS: Physician Assistant Medical; Emergency Provider Emergency Medicine; PCP Physician Assistant Medical
DX: R07.89 Other chest pain (principal); Z87.891 Personal history of nicotine dependence; Z79.899 Other long term (current) drug therapy; Z03.818 Encounter for observation for suspected exposure to other biological agents ruled out
CPT/HCPCS: 36415; 71045; 80053; 83690; 83735; 84484; 85025; 87637; 93005; 96374; 96375; 99284; 99285; J1885; J3360

== ENCOUNTER → 2025-03-25 20:45 | Outpatient (BNV) | payer OTHER, SELFPAY | PROVIDERS: Emergency Provider Emergency Medicine; PCP Physician Assistant Medical; Visit Provider Internal Medicine Cardiovascular Disease | DX: R94.31 Abnormal electrocardiogram [ECG] [EKG] (principal); R07.9 Chest pain, unspecified | CPT/HCPCS: 93010 ==

== ENCOUNTER → 2025-03-25 20:45 | Outpatient (BNV) | payer OTHER, SELFPAY | PROVIDERS: Emergency Provider Emergency Medicine; PCP Physician Assistant Medical; Visit Provider Radiology Diagnostic Radiology | DX: R07.9 Chest pain, unspecified (principal) | CPT/HCPCS: 71045 ==

== ENCOUNTER 2025-04-05 08:55 | Outpatient (AMB) | payer OTHER, SELFPAY ==
--- OUTSIDE RECORDS SUMMARY | 2023-10-21 06:20 | XMS_ITS ---
Author Organization [facility] Address [address] [facility] [place] [address] Care Team Providers Care Customer Insight Analyst Name Role Phone Rodrigue (RETIRED) Reid AMBROSIO Primary Care Provide r Favian Lee Jr [phone] REASON FOR VISIT abdominal pain Encounters Encounter Location Date Provider Diagnosis [facility] [address] [facility] [place] [address] 10/21/2023 Favian Gonzalez Jr Plan Of Treatment No Information Progress Notes * WOODROW NOVAK MDOB:1960 ( 64 yo F)Acc No.[id number]:10/21/2023 Progress Notes Patient: WOODROW KOO Provider: Bridger Gonzalez MD :1960 A ge:63 Y S ex:Female Date:10/21/2023 Address:[address] [place] Pcp:Reid Husain (RETIRED )MD Subjective: * Chief Complaints: * A bdominal pain * The named appointment provid er may or may not be the originator of this progress note, and it is not deemed complete until electronically signed by the appointment provider. Sign off status: Pending * Provider: Bridger Gonzalez MD Date: 0 10/21/2023 Generated for Printi ng/Faxing/eTransmitting on: 1 06/06/2024 09:38 AM EST
--- OUTSIDE RECORDS SUMMARY | 2024-03-10 02:30 | XMS_ITS ---
Author Organization [facility] Address [address] [place] [address] Care Team Providers Care Financial Quantitative Analyst Name Role Phone Rodrigue (RETIRED) Reid [...] Active Encounters Encounter Location Date Provider Diagnosis [facility] Outpatient [address] [place], [place] [phone] 03/10/2024 Favian Gonzalez Jr Colon cancer screening [...] WOODROW NOVAK MDOB:1960 ( 64 yo F)Acc No.[id number]:03/10/2024 COLON WITH MAC Patient: WOODROW KOO Provider: Bridger Gonzalez MD :1960 A ge:63 Y S ex:Female Date:03/10/2024 Address:[address] Pcp:Reid Husain (RETIRED )MD Subjective: * Chief [...] * Procedure Codes: 4 5380 COLONOSCOPY AND [id number] INTRVL 3+YRS PTS CLNSCP DOCD Billing Information: * Procedure Codes: 17680 COLONOSCOPY AND BIOPSY. 0529F INTRVL 3+YRS PTS CLNSCP DOCD. * The named appointment provid er may or may not be the originator of this progress note, and it is not deemed complete until electronically signed by the appointment provider. Sign off status: Pending * Provider: Bridger Gonzalez MD Date: 05/10/2023 Generated for Estella guevara/Emerson/Liyah on: 1 06/06/2024 09:37 AM EST
--- NOTE | 2025-04-05 08:39 | MHC.PC.OV ---
Vital Signs 04/05/25 09:02 Height 5 ft 4 in Weight 239 lb 5 oz BMI 41.1 BP 138/78 Blood Pressure Location Lt brachial Position Sitting Respiration 16 Pulse 83 Pulse Source Pulse Oximeter Temp 98.6 F Temp Source Temporal Artery Scan Pulse Oximetry (%) 97 Oxygen Delivery Method Room Air Intake Visit Reasons: ED Follow-up /[facility] [place] 03/25 Intake Note: Ayesha presents in the office today for an ER Follow up. 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 celecoxib 200 mg PO BID fluocinonide 0.05% 1 appl topical .twice weekly FreeStyle Lite Meter (blood-glucose meter) As directed NS irbesartan (Avapro) 150 mg PO DAILY lancets (FreeStyle Lancets) Use 1 strip topically once daily to monitor blood glucose. methocarbamol 1,500 mg (2 x 750 mg) PO Q8H PRN prednisone orally daily; Take 3 tabs po qam x 3 days, then take 2 tabs po qam x 3 days, then take 1 tab po qam x 3 days simvastatin 20 mg PO BEDTIME tirzepatide (Mounjaro) 7.5 mg (0.5 mL) subcut QWEEK triamterene-hydrochlorothiazid 37.5-25 mg 1 cap PO BID zolpidem 5 mg PO BEDTIME PRN Tobacco use date assessed: 04/05/25 Dental Screening Dental Screen Date: 04/05/25 Did you have a dental visit in the last 12 months?: Yes Did you have a dental problem in the last 6 months where you did not have access to dental care?: No Was dental information given to patient?: Patient has dentist HPI HPI Comments History of Present Illness Details 64 year old female with Type II DM, HLD, HTN, OA of the knees and obesity presents for follow up. Patient had 2 days of anterior chest pain. On the 2nd day she developed palpitations, heart rate 129 at rest per watch, clamminess, shortness of breath, dizziness. Patient was seen at the emergency department at [facility] on 03/25/2025 for symptoms. Chest pain was exacerbated by palpation. She was diagnosed with chest wall strain due to yoga which she had started doing. Cardiac enzymes were normal. There were no ischemic changes on the EKG or arrhythmia, and her chest x-ray was clear. She was prescribed methocarbamol, and chest pain resolved after 2 days on the medication. Patient thinks that the other symptoms may have been due to an anxiety attack about the chest pain. She also has been more stressed about the holidays. Reviewed EKG in EMR. Normal sinus rhythm. Left axis deviation, low-voltage QRS and possible anterior infarct age undetermined. Father from [place] in his 50s. She denies exertional chest pain or shortness of breath or dizziness. Hyperlipidemia-taking simvastatin 20 mg daily. Type 2 diabetes-controlled. Taking Mounjaro. Ozempic caused abdominal pain. When she took metformin with a GLP 1 she had heart palpitations. Hypertension-treated with irbesartan and triamterene-hydrochlorothiazide. She has a rescue inhaler, but she has not needed it for several years. The only issue she has other than this today is bilateral heel pain which is secondary to heel spurs. She saw Dr. Matthew at [place] before. Nothing really helps her and she wants to get cortisone shots, but she does not think she will be able to get in for the appointment before a trip to [place], and she is really concerned about how this is going to affect the trip. She takes Celebrex. ROS: Constitutional: No unexplained weight loss, fever, chills, fatigue or night sweats. Respiratory: No cough, wheezing or sputum production. See HPI Cardiovascular: See HPI Gastrointestinal: No anorexia, nausea, vomiting or diarrhea. No abdominal pain Neurologic: Denies headache, tremors. See HPI. Physical exam: Constitutional: Alert, in no distress. Eyes: Pupils are equal, round and reactive to light. Extraocular muscles intact. Neck: Supple, Full range of motion. No lymphadenopathy. No palpable neck or thyroid masses. Respiratory: Clear to auscultation. Cardiovascular: S1 S2 regular. No murmurs. Neurologic: No focal neurological deficits. Extremities: Warm and well perfused. No clubbing, cyanosis or edema. Psychiatric: Normal mood and affect [facility] Medical History (Updated 04/05/25 @ 13:39 by RAMÓN Paul) Family history of coronary artery disease Palpitations Near syncope Chest pain Abnormal EKG Heel pain, bilateral Salivary gland adenitis Microhematuria Insomnia Class 3 obesity Controlled type 2 diabetes mellitus Hyperlipidemia Essential hypertension Fibroid Lichen sclerosus Asthma High blood pressure High cholesterol Surgical History (Updated 06/22/24 @ 14:08 by Joanne Sethi [facility]) History of back surgery H/O colonoscopy (2023) H/O umbilical hernia repair H/O hand surgery Hx of tonsillectomy Family History Mother Colon cancer Maternal Aunt Colon cancer Family/Other History of breast cancer Family/Other History of breast cancer Social History (Updated 04/05/25 @ 09:02 by Abbey Elise [facility]) Housing: House Are you a primary career technical education teacher to a significant other at home: No Do you presently have visiting nurse or other home services: No Alcohol intake: current Alcohol intake frequency: does not drink Comment: medicated with po tylenol Patient Tobacco Use Status: Former Tobacco user Tobacco use type: Cigarette Years Smoked: 10 e-Cigarette/Vaping Use: Never Used Second Hand Smoke Exposure: No Use of substances other than those prescribed or required for medical reasons: No Substance Use Type: Marijuana Patient : No service: No Current occupational status: employed and retired Current occupational exposures/hazards: No Sexual orientation: Straight/Heterosexual Gender identity: Female Cognitive needs: No Hearing needs: No Vision needs: Yes Female Reproductive History Menstrual Age of Menarche: 13 Questionnaire Thrive Questionnaire Date Thrive assessed: 06/15/24 I am a: Patient What is your living situation today?: I have a steady place to live Within the past 12 months, did the food you bought not last and you didn't have the money to get more?: Never true Within the past 12 months, did you worry whether your food would run out before you got money to buy more?: Never true Do you have trouble paying for medicines?: No Do you have trouble getting transportation to medical appointments?: No Do you have trouble paying your heating and electricity bill?: No Do you have trouble taking care of your child, family member or friend?: No Do you have trouble with day-to-day activities such as bathing, preparing meals, shopping, managing finances, etc.?: No Are you currently unemployed and looking for a job?: No Are you interested in more education?: No Currently or been in a relationship where the following occur: No concerns reported THRIVE Score: 0 IVY-7 AMB Questionnaire IVY-7 Date IVY - 7 assessed: 02/11/25 Source: Developed by Drs. González Lewis, Mirna Todd, Natanael Dutton and colleagues, with an educational alexandro from [employer]. Physical exam (Primary Care) Vital Signs: Last Vital Signs Temp 98.6 F 04/05/25 09:02 Pulse 83 04/05/25 09:02 Resp 16 04/05/25 09:02 BP 138/78 04/05/25 09:02 Pulse Ox 97 04/05/25 09:02 Oxygen Delivery Method Room Air 04/05/25 09:02 BMI result Body Mass Index 41.1 Tobacco/Smoking Status: Tobacco use Status Tobacco use date assessed 04/05/25 04/05/25 09:04 Patient Tobacco Use Status Former Tobacco user 04/05/25 09:02 Tobacco use type Cigarette 04/05/25 09:02 e-Cigarette/Vaping Use Never Used 04/05/25 09:02 Thrive Assessment: Date of Thrive Assessment Date Thrive assessed 06/15/24 04/05/25 08:40 Currently or been in a relationship where the following occur: No concerns reported Coding Level of Care Code Est Pt Level 4 (09341) Add On Problem Visit Only Diagnoses Heel pain, bilateral M79.671; M79.672 Abnormal EKG R94.31 Chest pain R07.9 Near syncope R55 Palpitations R00.2 Assessment & Plan Assessment & Plan (1) Heel pain, bilateral: Code(s): M79.671 - Pain in right foot; M79.672 - Pain in left foot Category: Medical (2) Abnormal EKG: Code(s): R94.31 - Abnormal electrocardiogram [ECG] [EKG] Category: Medical (3) Chest pain: Code(s): R07.9 - Chest pain, unspecified Category: Medical (4) Near syncope: Code(s): R55 - Syncope and collapse Category: Medical (5) Palpitations: Code(s): R00.2 - Palpitations Category: Medical Plan Chest pain was consistent with chest wall strain secondary to yoga. Negative workup for ACS. Resolve with methocarbamol. EKG was abnormal however she has no anginal symptoms warranting a stress test at this time. She has risks for coronary artery disease including family history, hypertension, hyperlipidemia, diabetes and obesity. Ordered coronary calcium CT. Advised insurance may not cover it and to check with insurance regarding pricing. Check echo and Holter monitor due to episode of palpitations associated with clamminess and dizziness. Differential does include an anxiety attack however I would like to check for underlying causes. Warning signs warranting re-evaluation at ED reviewed. Referred back to Podiatry. She will call to see if she can get an appointment. She requested prednisone since she is going on vacation to [place]. I prescribed a taper of this. Hold Celebrex while taking prednisone. Take it with food. She has a glucometer and can monitor her blood sugars. We reviewed signs and symptoms of hyperglycemia and call the office if glucose is over 250. Orders: Orders CA echo transthoracic complete Today R55 - Syncope and collapse, R94.31 - Abnormal electrocardiogram [ECG] [EKG] ECG holter monitor 48 hour Today R00.2 - Palpitations CT Coronary Calcium Score Today R94.31 - Abnormal electrocardiogram [ECG] [EKG], Z82.49 - Family history of ischemic heart disease and other diseases of the circulatory system Referrals Podiatry Referral M79.671 - Pain in right foot, M79.672 - Pain in left foot Medications: New prednisone orally daily; Take 3 tabs po qam x 3 days, then take 2 tabs po qam x 3 days, then take 1 tab po qam x 3 days 18 tabs 0RF
[2025-04-05 09:02] VITALS: BP 138/78; PULSE 83; RESP 16; TEMP 37; O2SAT 97; BMI 41.1
--- OUTSIDE RECORDS SUMMARY | 2025-04-05 09:38 | XMS_ITS | Patient Health Record ---
Author Organization [facility] Address [address] [place] [address] Care Team Providers Care Business Education Professor Name Role Phone Rodrigue (RETIRED) Reid AMBROSIO Primary Care Provide r Unavailable Favian Gonzalez Jr Unavailable [phone] Allergies No Known Allergies Reason For [...] Status Risk Notes Problem Colon cancer screening (417238392) Colon cancer screening (Z12.11) Active confirmed Problem Pre-procedure evaluation check (060969905) Encounter for other preprocedural examination (Z01.818) Active confirmed Problem Generalized abdominal pain (414830486) Generalized abdominal pain (R10.84) Active confirmed Problem Family history of malignant neoplasm of gastrointestinal tract (271111466) FH: colon cancer (Z80.0) Active confirmed Problem Long-term current use of drug therapy (048828461) detention current use of diuretic (Z79.899) Active confirmed Plan Of Treatment Future Test Test Name Order Date COLONOSCOPY 11/06/2018 COLONOSCOPY 07/10/2023 Insurance Providers Payer Name Payer Address Payer Phone Subscriber Number Group Number Insured Name Patient Relationship to Insured Coverage Start Date Coverage End Date [facility] [address] [place] [address] [id number] NOVAK Self - patient is the insured Medical (General) History Medical History History ICD Code hypertension Asthma, cold-induced Hyperlipidemia Prediabetes Surgical History Surgery Date(Month/Year) tonsillectomy hernia repair, umbilical 04/2017 hand surgery Back fusion
== END 2025-04-05 09:30 | disposition home or self-care (01) ==
LOC: HO.HMCFM 08:56
PROVIDERS: PCP Physician Assistant Medical; Visit Provider Physician Assistant Medical
DX: M79.671 Pain in right foot (principal); M79.672 Pain in left foot; R94.31 Abnormal electrocardiogram [ECG] [EKG]; R07.9 Chest pain, unspecified; R55 Syncope and collapse; R00.2 Palpitations

== ENCOUNTER → 2025-04-05 08:55 | Outpatient (BNVA) | payer OTHER, SELFPAY | PROVIDERS: PCP Physician Assistant Medical; Visit Provider Physician Assistant Medical | DX: R55 Syncope and collapse (principal); M79.671 Pain in right foot; M79.672 Pain in left foot; R07.9 Chest pain, unspecified; R00.2 Palpitations; R94.31 Abnormal electrocardiogram [ECG] [EKG] | CPT/HCPCS: 99212 ==